=== PATIENT | male | born 1940 | race Caucasian/White ===

== ENCOUNTER → 2016-11-22 | Outpatient (CLI) | payer OTHER ==
[~2016-11-22] MED LIST: ASCO10003 PO; CALC500C3 PO; CIPR-255 PO; FINA5TAB PO; METO1TAB31 PO; NAPR1TAB9 PO; OPTIRAY 320 IV PRN; OXYB5TAB74 PO; OXYC7.5T65 PO; PHEN-775 PO; TAMS0.4C38 PO
--- NOTE | 2016-11-22 13:06 | DIAGNOSTIC IMAGING REPORT ---
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 TECHNIQUE: Following the IV administration of 119 mL of Optiray-320, CT scan of the abdomen and pelvis was performed from the lung bases to the proximal femurs. Images are reviewed in the axial, sagittal, and coronal planes. IV contrast was administered without complication. A dose lowering technique was utilized adhering to the principles of ALARA. CT DOSE: FINDINGS: Lower chest: There are no pleural effusions. There is bilateral subpleural reticulation. Liver: The contrast-enhanced liver is normal in size, contour, and attenuation. There is no intrahepatic biliary ductal dilatation. The hepatic veins and portal veins are patent. Gallbladder: Unremarkable. Spleen: Normal in size and attenuation. Pancreas: Unremarkable. Adrenal glands: Unremarkable. Kidneys: There is a 5 mm upper pole left renal cyst. No solid renal masses are visualized. There is no hydronephrosis. Bowel: There are no transition zones to indicate bowel obstruction. There is colonic diverticulosis. There are no acute peridiverticular inflammatory changes. The appendix appears normal. There is an 8 mm gastric polyp versus enteric contents. Peritoneum: There is no intraperitoneal free air or abdominal ascites. Vasculature: There is a 33 mm infrarenal abdominal aortic aneurysm. Adenopathy: None. Pelvic viscera: The prostate is enlarged. There is a 56 mm right-sided lobulated bladder mass. There is a second 9 mm left-sided polypoid bladder nodule Skeletal structures: No destructive osseous lesions are seen. IMPRESSION: 1. 5.6 cm lobulated bladder mass 2. Prostatomegaly 3. 33 mm infrarenal abdominal aortic aneurysm 4. 8 mm gastric polyp versus enteric contents Electronically signed by: Vitaliy Chaudhry M.D. 11/22/2016 1:05 PM Dictated Date/Time: 11/22/2016 12:54 PM
--- NOTE | 2016-11-22 13:08 | DIAGNOSTIC IMAGING REPORT ---
CHEST CT WITH CONTRAST CT DOSE: 609.10 mGy.cm HISTORY: R31.0 Gross [id number] Bladder massN40.1 BPH with obstructi TECHNIQUE: Multiaxial CT images of the chest were performed following the intravenous administration of contrast. A dose lowering technique was utilized adhering to the principles of ALARA. COMPARISON: None. FINDINGS: Mild biapical pleural-parenchymal scarring. No pleural effusions. No pneumothorax. Mild subpleural reticulation and groundglass densities. There is also mild subpleural honeycombing seen within the right lung. These demonstrate a basilar and peripheral predominance. Therefore, this favors mild fibrotic change. Mild emphysema. A small right anterior pleural plaque. This is best seen on image 129. This measures 2 cm in length. No focal lung consolidations to suggest pneumonia. No suspicious pulmonary nodules. No suspicious lytic or blastic osseous lesions. Old, healed left-sided rib fractures. Normal caliber thoracic aorta with no evidence for dissection. The central pulmonary arteries are patent. The heart is normal in size. Hepatic steatosis. The visualized spleen and adrenal glands are unremarkable. No mediastinal or hilar lymphadenopathy. IMPRESSION: 1. Mild emphysema. 2. Mild pulmonary fibrosis. 3. No evidence for metastatic disease within the chest. Electronically signed by: Victor M Johnston M.D. 11/22/2016 1:07 PM Dictated Date/Time: 11/22/2016 12:51 PM
== END | disposition home or self-care (01) ==
LOC: C.CTS 12:09
PROVIDERS: ATTEND Urology
DX: N32.89 Other specified disorders of bladder (principal); N40.1 Benign prostatic hyperplasia with lower urinary tract symptoms; R31.0 Gross hematuria; I71.4 Abdominal aortic aneurysm, without rupture; R93.3 Abnormal findings on diagnostic imaging of other parts of digestive tract

== ENCOUNTER → 2016-12-19 | Outpatient (CLI) | payer OTHER ==
[~2016-12-19] MED LIST changes: -OPTIRAY 320 IV PRN; -PHEN-775 PO
--- NOTE | 2016-12-19 10:41 | DIAGNOSTIC IMAGING REPORT ---
CYSTOGRAM CLINICAL HISTORY: 76 years-old Male presenting with N32.89 Bladder massC67.9 Bladder [id number] Intraoperative bladder visualization. TECHNIQUE: 10 fluoroscopic spot image(s) obtained as part of an intraoperative procedure. COMPARISON: CT from 11/22/2016. FINDINGS/IMPRESSION: Initial noncontrast frontal and lateral projections of the bladder unremarkable. A Rogers catheter is in place. The bladder was progressively distended with contrast revealing a grossly irregular luminal contour with marked trabeculation. The focal polypoid irregular thickening visible on CT is not as well appreciated on the spot images. Please see surgical report for further details. Fluoroscopy dosage (mGy): Not available. Fluoroscopy time: 1.8 minutes. Number of fluoroscopic spot images: 10. Electronically signed by: Chester Upton M.D. 12/19/2016 10:39 AM Dictated Date/Time: 12/19/2016 10:38 AM
--- NOTE | 2016-12-19 11:43 | DIAGNOSTIC IMAGING REPORT ---
PELVIS NO IV/ORAL CONT (CT) CLINICAL HISTORY: 76 years-old Male presenting with BLADDER CANCER, INTRA OP BLADDER INJURY. TECHNIQUE: Multidetector CT of the pelvis was performed without the use of intravenous contrast. IV contrast: None. A dose lowering technique was used consistent with the principles of ALARA (as low as reasonably achievable). COMPARISON: Cystogram performed earlier the same day and CT from 11/22/2016. CT DOSE (mGy.cm): The estimated cumulative dose is 355.35 mGy.cm. FINDINGS: Oceanographic Meteorologist topogram: Unremarkable. A Rogers catheter is in place. Small amount of residual prior administered contrast via the Rogers catheter noted in the urinary bladder. No intraperitoneal or extraperitoneal spillage of contrast to suggest a bladder leak. Gas within the urinary bladder related to the presence of the catheter. Although the bladder is decompressed, suggestion of a thick wall noted. Mild perivesicular fat stranding. Small perivesicular lymph node noted along the right anterolateral aspect (series 3 image 136). No dilatation of the distal ureters. Calcification within the mildly enlarged prostate evidence of benign prostatic hyperplasia. A TURP defect may be present. Diverticulosis of the sigmoid colon. Normal appendix. No bowel obstruction. No free intraperitoneal fluid or gas. Atherosclerosis. No gross lymphadenopathy in the pelvis. No inguinal hernias. Degenerative changes of the lower lumbar spine. IMPRESSION: No evidence of bladder leak. The bladder is decompressed but thick-walled, better evaluated on prior CT with multifocal areas of masslike thickening, likely now resected. Perivesicular fat stranding could relate to inflammation in the setting of infectious cystitis or prior radiation, postsurgical change, or reactive changes in the setting of neoplasm. Small nonspecific prominent perivesicular lymph node. Electronically signed by: Chester Upton M.D. 12/19/2016 11:42 AM Dictated Date/Time: 12/19/2016 11:37 AM
[2016-12-19 16:06] LABS: BLOOD UREA NITROGEN 22 mg/dl (7-18); BUN/CREATININE RATIO 15.4 (10-20)
== END | disposition home or self-care (01) ==
LOC: C.RAD 09:45
PROVIDERS: ATTEND Urology
DX: C67.9 Malignant neoplasm of bladder, unspecified (principal); N32.89 Other specified disorders of bladder; N99.81 Other intraoperative complications of genitourinary system

== ENCOUNTER → 2017-01-03 | Outpatient (CLI) | payer OTHER ==
[~2017-01-03] MED LIST changes: +METO-478 PO; -METO1TAB31 PO; -NAPR1TAB9 PO; -OXYB5TAB74 PO; -OXYC7.5T65 PO; +PHEN-775 PO
[2017-01-03 12:12] LABS: BASO % 0.2 %; BASO ABS # 0.01 K/uL (0-0.2); COMPLETE YES; HEMATOCRIT 38.5 % (42-52); IG% 0.2 %; LYMPH % 24.6 %; LYMPH ABS # 1.51 K/uL (1.2-3.4); MEAN CELL VOLUME 93.4 fL (80-100); MEAN CORPUSCULAR HEMOGLOBIN 31.1 pg (25-34); MEAN CORPUSCULAR HGB CONC 33.2 g/dl (32-36); MEAN PLATELET VOLUME 9.4 fL (7.4-10.4); MONO % 10.1 %; NEUT % 62.9 %; PLATELET COUNT 127 K/uL (130-400); RED BLOOD COUNT 4.12 M/uL (4.7-6.1); WHITE BLOOD COUNT 6.15 K/uL (4.8-10.8)
[2017-01-03 13:13] LABS: BLOOD UREA NITROGEN 23 mg/dl (7-18); BUN/CREATININE RATIO 16.9 (10-20); CALCIUM 8.7 mg/dl (8.5-10.1); CARBON DIOXIDE 27 mmol/L (21-32); CHLORIDE 109 mmol/L (98-107); CREATININE 1.35 mg/dl (0.60-1.40); GLUCOSE 84 mg/dl (70-99); POTASSIUM 4.9 mmol/L (3.5-5.1); SODIUM 141 mmol/L (136-145)
[2017-01-03 13:38] LABS: URINE APPEARANCE CLOUDY (CLEAR); URINE BILIRUBIN NEG (NEG); URINE COLOR YELLOW; URINE EPITHELIAL CELL AUTO 0-5 /lpf (0-5); URINE NITRITE NEG (NEG); UROBILINOGEN NEG (NEG)
[2017-01-03 13:43] LABS: MANUAL MICROSCOPIC REQUIRED? NO; REVIEW REQ? YES
== END | disposition home or self-care (01) ==
LOC: C.LAB 11:13
PROVIDERS: ATTEND Urology
DX: R31.0 Gross hematuria (principal); N32.89 Other specified disorders of bladder; C67.9 Malignant neoplasm of bladder, unspecified

== ENCOUNTER → 2017-01-18 | Day surgery (SDC) | payer OTHER ==
[2016-12-26 09:06] VITALS: BMI 24.0
[~2017-01-18] VITALS: Ht 177.8 cm; Wt 75.2 kg
[~2017-01-18] MED LIST changes: +ATROPINE SULFATE 0.1 MG/ML 5ML SYR IV PRN; +BELLADONNA/OPIUM SUPP 60 MG SUPP PR ONE; +CIPROFLOXACIN / D5W 400 MG IV SCH; +EpHEDrine SULFATE INJ 50 MG/ML AMP IV PRN; +EpHEDrine SULFATE INJ 50 MG/ML AMP ONE; +FENTANYL CITRATE INJ 50 MCG/1 ML 2 ML VIAL ONE; +GENTAMICIN INJ 80 MG in DEXTROSE 5% 100ML 100 ML IV SCH; +LACTATED RINGER'S 1000ML 1,000 ML IV SCH; +MIDAZOLAM HCL 1 MG/ML 2ML VIAL ONE; +ONDANSETRON INJ 2 MG/ML 2 ML VIAL IV PRN; +OXYCODONE/ACETAMINOPHEN 5-325 TAB PO PRN; +PHENAZOPYRIDINE HCL 200 MG TAB PO PRN
[2017-01-18 12:06] VITALS: BP 182/88; PULSE 64; TEMP 36.7; O2SAT 98; Ht 177.8 cm; Wt 75.2 kg
--- NOTE | 2017-01-18 13:02 | History & Physical Bridge Note ---
H&P Re-Evaluation Bridge Note: I have examined the patient, reviewed the History & Physical and in the interval since the performance of the History & Physical I have noted the following changes of clinical significance: No changes noted
--- NOTE | 2017-01-18 14:56 | Discharge Instructions ---
Discharge Instructions Date of Service Jan 18, 2017. Admission Reason for Admission: Bladder Cancer Discharge Discharge Diagnosis / Problem: Bladder cancer s/p TURBT Discharge Goals Goal(s): Decrease discomfort, Improve disease control Activity Recommendations Activity Limitations: as noted below Lifting Limitations: no more than 25 pounds, gradually increase as tolerated Exercise/Sports Limitations: rest today, gradually increase as tolerated May Resume Sexual Activity: after follow-up appointment Shower/Bathe: tomorrow (no tub bath with munoz in place) Driving or Machine Use: resume 3 days after discharge Catheter to gravity drainage as instructed . Instructions / Follow-Up Instructions / Follow-Up In [place] office Sunday at 10:15 AM for catheter removal and pathology discussion. Discharge Diet Recommended Diet: Regular Diet (good fluid intake) Procedures Procedures Performed: Cystoscopy; Transurethral Resection Bladder Tumor; Meatal Dilation Pending Studies Studies pending at discharge: yes List of pending studies: Pathology report Medical Emergencies . Who to Call and When: Medical Emergencies: If at any time you feel your situation is an emergency, please call 911 immediately. . Non-Emergent Contact Non-Emergency issues call your: Urologist Call Non-Emergent contact if: you have a fever, temperature is above 101, your pain is not controlled, your pain is worsening, your pain is unusual for you, your pain is concerning you, you have any medication questions . . "Provider Documentation" section prepared by Ilan Acevedo. . VTE Core Measure Inpt VTE Proph given/why not?: SCD's
--- NOTE | 2017-01-18 14:58 | [facility] Post Operative Brief Note ---
Immediate Operative Summary Operative Date Jan 18, 2017. Pre-Operative Diagnosis Bladder Tumor Post-Operative Diagnosis Bladder Tumor, >5 cm; Meatal Stenosis Procedure(s) Performed Cystoscopy; Transurethral Resection Bladder Tumor > 5 cm; Meatal Dilation Surgeon Dr. Shaka Acevedo Slot Ambassador Surgeon(s) None Estimated Blood Loss 30 mL Findings Significant residual tumor burden on right and anterior bladder wall resected with no clear residual mass, no bladder perforation. Specimens A: Right Bladder Tumor B: Deep Bladder Tumor C: Deep Cup Biopsy Drains 24 fr 15 cc H2O Anesthesia GALMA Complication(s) None Disposition Recovery Room / PACU
--- NOTE | 2017-01-18 15:03 | [facility] Operative Report ---
Operative Report Operative Date Jan 18, 2017. Pre-Operative Diagnosis Bladder Tumor Post-Operative Diagnosis Bladder Tumor > 5 cm; Meatal Stenosis Procedure(s) Performed Cystoscopy; Transurethral Resection Bladder Tumor > 5 cm; Meatal Dilation Surgeon Dr. Shaka Acevedo Optical Engineering Manager Surgeon(s) None Estimated Blood Loss 30 mL Findings Significant residual tumor burden on right and anterior bladder wall resected with no clear residual mass, no bladder perforation. Specimens A: Right Bladder Tumor B: Deep Bladder Tumor C: Deep Cup Biopsy Drains 24 fr 15 cc H2O Anesthesia GALMA Complication(s) None Disposition Recovery Room / PACU Indications 76-year-old male who is status post partial TURBT proximally 6 weeks ago here for completion resection seen the lack of muscle invasion on his previous specimen. Please see H&P for further details. Consent is reviewed with the patient and family preoperatively today who vocalize good understanding of the treatment plan. Intravenous ciprofloxacin was provided for antibiotic coverage and SCDs used for DVT prophylaxis. Description of Procedure Patient was properly identified and brought into the operative suite after infusion of appropriate consent of the chart. General anesthesia with laryngeal mask was initiated and patient was prepped and draped in standard fashion for this procedure. Full timeout procedure was followed. Attempts at passing the 27 [place] resectoscope met with resistance at the level of the meatus which was then dilated to a 30 [place] caliber. The scope was then able to be passed easily into the bladder. Prostate was noted to be open after prior TURP, well-healed. No urethral strictures or lesions were appreciated. Bladder was entered and surveyed in its entirety. Left side of the bladder was noted to be completely clean as was the posterior bladder and most of the anterior bladder. Residual tumor and edema was present around the right bladder wall. Ureteral orifices were noted to be uninvolved by the disease process were thereby able to be avoided throughout the case. Using a bipolar loop the majority of the tumor was resected on the right side. The initial tumor mass was labeled right bladder mass. When the deeper tumor was resected the specimens were sent separately for analysis as deep bladder tumor. At the base of the tumor a single cold cup biopsy was taken at the center of the tumor mass and sent as a separate deep cold cup specimen for analysis. Loop and bipolar button were used for additional hemostasis and fulguration of any residual mass or lesions. This was continued until no residual abnormal papillary masses or lesions were appreciated within the bladder. No evidence of bladder perforation was present at the end of the case. Patient tolerated the procedure well with no significant difficulties. Seen the volume of resection mitomycin C was avoided today in the operating room. Excellent hemostasis was appreciated and the bladder was partially distended after ensuring that it was free of any tumor fragments or tissue. 24 [place]an Rogers catheter was placed with return of clear pink urine with 15 mL of sterile water in the balloon. Catheter was placed to gravity drainage belladonna and opium suppository was provided for additional postoperative analgesia. Anesthesia was reversed and patient was transferred recovery room in stable condition. Follow-up care: patient will be discharged home with a Rogers catheter in place. Prescription for ciprofloxacin and peridium were provided for postoperative analgesia. Per the family patient has pain medication at home. Outpatient appointment for trial of void and pathology discussion is confirmed. Patient is instructed to contact us should he note any fevers, chills, nausea, vomiting , catheter difficulties or other issues in the postoperative period. I attest to the content of the Intraoperative Record and any orders documented therein. Any exceptions are noted below.
--- NOTE | 2017-01-18 15:42 | Anesthesiology Progress Note ---
Anesthesia Post Op Note Date & Time Jan 18, 2017 at 15:42 Vital Signs Pain Intensity: 0 Vital Signs Past 12 Hours Date Time Temp Pulse Resp B/P (MAP) Pulse Ox O2 Delivery O2 Flow Rate FiO2 01/18/17 15:01 67 15 166/95 99 01/18/17 15:01 67 15 166/95 99 01/18/17 15:01 66 15 01/18/17 15:01 66 15 01/18/17 14:56 65 18 172/87 100 01/18/17 14:56 66 18 01/18/17 14:56 65 18 172/87 100 01/18/17 14:56 66 18 01/18/17 14:51 65 16 183/94 100 01/18/17 14:51 64 16 01/18/17 14:51 65 16 183/94 100 01/18/17 14:51 64 16 01/18/17 14:48 178/87 01/18/17 14:48 178/87 01/18/17 14:46 36.2 65 14 180/96 (129) 100 Oxymask 10 01/18/17 14:46 65 14 01/18/17 14:46 65 14 180/96 100 01/18/17 14:46 65 14 180/96 100 01/18/17 14:46 65 14 01/18/17 12:06 36.7 64 18 182/88 (119) 98 Room Air Notes Mental Status: alert / awake / arousable, participated in evaluation Pt Amnestic to Procedure: Yes Nausea / Vomiting: adequately controlled Pain: adequately controlled Airway Patency, RR, SpO2: stable & adequate BP & HR: stable & adequate Hydration State: stable & adequate Anesthetic Complications: no major complications apparent
[2017-01-18] MEDS: FENTANYL CITRATE INJ 50 MCG/1 ML 2 ML VIAL IV PRN ×4 (16:45→17:00)
--- NOTE | 2017-01-18 16:50 | Progress Note ---
Progress Note Date of Service Jan 18, 2017. Progress Note Called from recovery room due to a lack of output from the Rogers catheter and an inability to irrigate. Per recovery room nurse some clots had been extracted within the catheter stopped passing urine. Catheter is irrigated with a catheter tip syringe and sterile saline with irregular return of pink urine. Catheter exchanged for a 24 Slovak three-way hematuria catheter with infusion port plugged. Return of a moderate amount of red urine with some small clots. Catheter is irrigated with a Alvaro syringe with return of the small volume of clot and rapid clearing of the patient's urine with no pink tinge. After approximately 800 mL of irrigation catheter returns with clear irrigant and no further clot. Will still plan on discharge home as long as the urine remains clear. Will instruct on home irrigation if necessary.
[2017-01-18 17:24] VITALS: BP 165/78; PULSE 73; TEMP 36.4; O2SAT 97
[2017-01-18 17:55] VITALS: BP 156/94; PULSE 74; O2SAT 97
[2017-01-18 18:25] VITALS: BP 169/81; PULSE 80; TEMP 36.2; O2SAT 93
== END | disposition home or self-care (01) ==
LOC: C.ACU 11:19
PROVIDERS: ATTEND Urology
DX: C67.9 Malignant neoplasm of bladder, unspecified (principal); R31.0 Gross hematuria; N99.81 Other intraoperative complications of genitourinary system; N32.89 Other specified disorders of bladder; E78.5 Hyperlipidemia, unspecified; J44.9 Chronic obstructive pulmonary disease, unspecified; M19.90 Unspecified osteoarthritis, unspecified site; G47.33 Obstructive sleep apnea (adult) (pediatric); F17.200 Nicotine dependence, unspecified, uncomplicated; Z90.89 Acquired absence of other organs; Z98.890 Other specified postprocedural states; Z68.24 Body mass index [BMI] 24.0-24.9, adult

== ENCOUNTER → 2017-03-26 | Outpatient (CLI) | payer OTHER ==
[~2017-03-26] MED LIST changes: -ATROPINE SULFATE 0.1 MG/ML 5ML SYR IV PRN; -BELLADONNA/OPIUM SUPP 60 MG SUPP PR ONE; -CIPROFLOXACIN / D5W 400 MG IV SCH; -EpHEDrine SULFATE INJ 50 MG/ML AMP IV PRN; -EpHEDrine SULFATE INJ 50 MG/ML AMP ONE; -FENTANYL CITRATE INJ 50 MCG/1 ML 2 ML VIAL ONE; -GENTAMICIN INJ 80 MG in DEXTROSE 5% 100ML 100 ML IV SCH; -LACTATED RINGER'S 1000ML 1,000 ML IV SCH; -MIDAZOLAM HCL 1 MG/ML 2ML VIAL ONE; -ONDANSETRON INJ 2 MG/ML 2 ML VIAL IV PRN; -OXYCODONE/ACETAMINOPHEN 5-325 TAB PO PRN; -PHEN-775 PO; -PHENAZOPYRIDINE HCL 200 MG TAB PO PRN
== END | disposition home or self-care (01) ==
LOC: C.LABSPEC 16:58
PROVIDERS: ATTEND Urology
DX: R31.0 Gross hematuria (principal); C67.9 Malignant neoplasm of bladder, unspecified

== ENCOUNTER → 2017-04-23 | Outpatient (CLI) | payer OTHER | END | disposition home or self-care (01) | LOC: C.LABSPEC 17:01 | PROVIDERS: ATTEND Nurse Practitioner Adult Health | DX: R31.0 Gross hematuria (principal); R39.0 Extravasation of urine ==

== ENCOUNTER → 2017-05-10 | Outpatient (CLI) | payer OTHER ==
[2017-05-07 15:37] VITALS: Ht 177.8 cm; Wt 76.7 kg
[~2017-05-10] VITALS: Ht 177.8 cm; Wt 76.7 kg
[~2017-05-10] MED LIST changes: +ATOR-22 PO; -CALC500C3 PO; -CIPR-255 PO; +CIPR1TAB10 PO; +DOCU-94 PO; +FERR1TAB23 PO; +HYDR-5688 PO; +MULT-506 PO; +ONDA4TAB46 PO; +PROC10TA PO; +TRAM-10 PO
--- NOTE | 2017-05-10 13:25 | PAT Medication Instructions ---
Service Date May 10, 2017. Current Home Medication List Ascorbic Acid (Vitamin C), 1,000 MG PO QAM Finasteride (Proscar), 5 MG PO QAM Metoprolol Succinate (Toprol Xl), 12.5 MG PO QAM Multivitamin (Multivitamin), 1 TAB PO NOON Tamsulosin Hcl (Flomax), 0.4 MG PO QPM Medication Instructions For Your Scheduled Surgery - Hold the following medications the morning of surgery: Ascorbic Acid (Vitamin C), 1,000 MG PO QAM Finasteride (Proscar), 5 MG PO QAM Multivitamin (Multivitamin), 1 TAB PO NOON - Take the following medications the morning of surgery with a sip of water: Metoprolol Succinate (Toprol Xl), 12.5 MG PO QAM - Take the following medications as scheduled the night before surgery: Tamsulosin Hcl (Flomax), 0.4 MG PO QPM If you have any questions please call us at [phone] or [phone] or [phone]
[2017-05-10 14:14] LABS: CALCIUM 8.5 mg/dl (8.5-10.1); CREATININE 1.85 mg/dl (0.60-1.40); POTASSIUM 4.4 mmol/L (3.5-5.1)
[2017-05-10 14:24] LABS: EOS % 0.7 %; EOS ABS # 0.03 K/uL (0-0.5); HEMATOCRIT 34.7 % (42-52); HEMOGLOBIN 11.6 g/dL (14.0-18.0); IG# 0.01 K/uL (0.00-0.02); LYMPH % 21.4 %; LYMPH ABS # 0.91 K/uL (1.2-3.4); MEAN CELL VOLUME 89.4 fL (80-100); MEAN CORPUSCULAR HEMOGLOBIN 29.9 pg (25-34); MEAN CORPUSCULAR HGB CONC 33.4 g/dl (32-36); MEAN PLATELET VOLUME 9.2 fL (7.4-10.4); MONO % 17.2 %; MONO ABS # 0.73 K/uL (0.11-0.59); NEUT % 60.5 %; NEUT ABS # 2.57 K/uL (1.4-6.5); PLATELET COUNT 85 K/uL (130-400); RED CELL DISTRIBUTION WIDTH CV 14.7 % (11.5-14.5); RED CELL DISTRIBUTION WIDTH SD 48.6 fL (36.4-46.3); WHITE BLOOD COUNT 4.25 K/uL (4.8-10.8)
== END | disposition home or self-care (01) ==
LOC: C.LAB 08:00 → EDSTATUS 05-29 07:30
PROVIDERS: ATTEND Urology
DX: Z01.810 Encounter for preprocedural cardiovascular examination (principal); Z01.818 Encounter for other preprocedural examination

== ENCOUNTER → 2017-05-10 | Outpatient (CLI) | payer OTHER ==
[~2017-05-10] MED LIST changes: -ATOR-22 PO; -CIPR1TAB10 PO; -DOCU-94 PO; -FERR1TAB23 PO; -HYDR-5688 PO; -ONDA4TAB46 PO; +OPTIRAY 320 IV PRN; -PROC10TA PO; -TRAM-10 PO
--- NOTE | 2017-05-10 14:52 | DIAGNOSTIC IMAGING REPORT ---
CT ABD/PELVIS IV CONTRAST ONLY CLINICAL HISTORY: R31.0 Gross hematuria COMPARISON STUDY: 12/19/2016 TECHNIQUE: Following the IV administration of 93 mL of Optiray-320, CT scan of the abdomen and pelvis was performed from the lung bases to the proximal femurs. Images are reviewed in the axial, sagittal, and coronal planes. IV contrast was administered without complication. A dose lowering technique was utilized adhering to the principles of ALARA. CT DOSE: 1096.92 mGycm FINDINGS: Lower chest: There is suspected underlying interstitial lung disease with dependent subpleural reticulation. Liver: No focal hepatic masses are visualized. Gallbladder: Unremarkable. Spleen: Normal in size and attenuation. Pancreas: Unremarkable. Adrenal glands: Unremarkable. Kidneys: There is right-sided hydronephrosis and hydroureter down to the level of the bladder. There are 2 left renal cysts, each of which measures approximately 8 mm. No collecting system filling defects are visualized. Bowel: There are no transition zones indicate bowel obstruction. There is colonic diverticulosis. There are no acute peridiverticular inflammatory changes. There is no evidence of acute appendicitis. Peritoneum: There is no intraperitoneal free air or abdominal ascites. Vasculature: There is a 34 mm infrarenal abdominal aortic aneurysm Adenopathy: None. Pelvic viscera: There is a right posterior lateral bladder wall mass measuring 6 cm in maximal diameter. Extension into the perivesical soft tissues most be considered. Additional nodules are present within the left lateral bladder wall. The findings are viewed as suspicious for a bladder carcinoma. Skeletal structures: No destructive osseous lesions are seen. IMPRESSION: 1. Bladder mass, consistent with the patient's known bladder carcinoma 2. The bladder mass results in right-sided hydronephrosis and hydroureter 3. No solid renal masses identified 4. 34 mm infrarenal abdominal aortic aneurysm 5. Suspected interstitial lung disease with subpleural reticulation Electronically signed by: Vitaliy Chaudhry M.D. 05/10/2017 2:51 PM Dictated Date/Time: 05/10/2017 2:44 PM
== END | disposition home or self-care (01) ==
LOC: C.CTS 12:33
PROVIDERS: ATTEND Urology
DX: R31.0 Gross hematuria (principal)

== ENCOUNTER 2017-05-18 13:39 | Inpatient (IN) | payer OTHER ==
[~2017-05-18] VITALS: Ht 180.3 cm; Wt 76.9 kg
[~2017-05-18 13:39] MED LIST changes: -OPTIRAY 320 IV PRN
--- NOTE | 2017-05-18 14:15 | EMERGENCY ROOM VISIT NOTE ---
History Report prepared by Briana: Josh Way Under the Supervision of: Dr. Prosper Montalvo M.D. First contact with patient: 14:04 Chief Complaint: REFERRED BY DOCTOR Stated Complaint: BLOCKAGE IN URETHRA- POSSIBLE BLOOD CLOT-DR GILMORE History of Present Illness The patient is a 77 year old male with bladder cancer who presents to the Emergency Room with complaints of a worsening weakness over the past week. The patient states that he was diagnosed with bladder cancer in October, and follows- up with Dr. Gilmore of urology and Dr. Painting of hematology. He notes that he went to see Dr. Gilmore 8 days ago, and had another procedure scheduled for his bladder cancer. The patient had an abdominal CT scan done recently, and there were abnormalities in the CT scan, which Dr. Painting 2 days ago said showed something extending from the kidney to the bladder with a possible blockage. Dr. Painting also noted that the patient's creatinine and BUN were "bad", per the patient's . The patient's hemoglobin was 11.3 and creatinine was 3.34. Dr. Painting said that the patient was more pale and slightly anemic as well. The patient states that his urine has been full of blood and dark tissue for about a year now. Per the patient's , the patient has been weak ever since the cancer diagnosis, but has been weaker over the past week. The patient is not on any blood thinners. The patient denies any fevers, cough, congestion, or flank pain. Source of History: patient, spouse/significant other Onset: Over past few days Position: other (global) Quality: other (weakness) Timing: other (persistent) Associated Symptoms: + urinary symptoms (but unchanged since diagnosis), + weakness, No fevers, No cough (or congestion) Note: Associated symptoms: Patient more pale. Denies worsened flank pain. Review of Systems See HPI for pertinent positives & negatives. A total of 10 systems reviewed and were otherwise negative. Past Medical & Surgical Medical Problems: (1) Bladder cancer (2) Ureteral obstruction Family History No pertinent family history Social History Smoking Status: Former Smoker Marital Status: Housing Status: lives with family Occupation Status: retired Current/Historical Medications Scheduled Ascorbic Acid (Vitamin C), 1,000 MG PO QAM Ferrous Sulfate (Iron), 1 TAB PO LUNCH Finasteride (Proscar), 5 MG PO QAM Metoprolol Succinate (Toprol Xl), 12.5 MG PO QAM Multivitamin (Multivitamin), 1 TAB PO NOON Tamsulosin Hcl (Flomax), 0.4 MG PO QPM Allergies Coded Allergies: No Known Allergies (Unverified , 05/10/17) Physical Exam Vital Signs Date Time Temp Pulse Resp B/P (MAP) Pulse Ox O2 Delivery O2 Flow Rate FiO2 05/18/17 15:45 78 20 157/100 96 05/18/17 14:33 82 05/18/17 14:30 97 Room Air 05/18/17 13:47 36.8 86 17 150/83 99 Room Air Physical Exam GENERAL: Patient is in no acute distress. HEENT: No acute trauma, normocephalic atraumatic, mucous membranes moist, no nasal congestion, no scleral icterus. NECK: No stridor, no adenopathy, no meningismus, trachea is midline. LUNGS: Clear to auscultation bilaterally, no wheeze, no rhonchi, breath sounds equal. HEART: Without murmurs gallops or rubs, regular rate and rhythm. ABDOMEN: Soft, nontender, bowel sounds positive, no hernias, no peritonitis. EXTREMITIES: No cyanosis or edema, full range of motion of all the joints without pain or difficulty, no signs for acute trauma. NEUROLOGIC: Oriented x 3, no acute motor or sensory deficits, no focal weakness. SKIN: Pale. No rash, no jaundice, no diaphoresis. Medical Decision & Procedures ER Provider Diagnostic Interpretation: X-ray results as stated below per interpretation by me and the radiologist: SINGLE VIEW CHEST CLINICAL HISTORY: Weakness. Change in mental status. FINDINGS: An AP, portable, upright chest radiograph is compared to study dated 11/23/2016. The cardiomediastinal silhouette is unremarkable. Chronic interstitial thickening is similar to previous. No airspace consolidation or pleural effusion is identified. No pneumothorax is seen. The skeletal structures are osteopenic. The bony thorax is grossly intact. IMPRESSION: 1. No acute cardiopulmonary abnormality. 2. Chronic interstitial thickening is similar to previous. Electronically signed by: Prosper Bob M.D. 05/18/2017 2:50 PM Dictated Date/Time: 05/18/2017 2:49 PM Laboratory Results 05/18/17 14:30 Red Blood Count 3.51, Mean Corpuscular Volume 88.6, Mean Corpuscular Hemoglobin 29.9, Mean Corpuscular Hemoglobin Concent 33.8, Mean Platelet Volume 9.0, Neutrophils (%) (Auto) 65.8, Lymphocytes (%) (Auto) 22.1, Monocytes (%) (Auto) 10.4, Eosinophils (%) (Auto) 1.4, Basophils (%) (Auto) 0.3, Neutrophils # (Auto ) 2.35, Lymphocytes # (Auto) 0.79, Monocytes # (Auto) 0.37, Eosinophils # (Auto ) 0.05, Basophils # (Auto) 0.01 05/18/17 14:30 Test 05/18/17 14:30 05/18/17 15:40 White Blood Count 3.57 K/uL (4.8-10.8) Red Blood Count 3.51 M/uL (4.7-6.1) Hemoglobin 10.5 g/dL (14.0-18.0) Hematocrit 31.1 % (42-52) Mean Corpuscular Volume 88.6 fL (80-100) Mean Corpuscular Hemoglobin 29.9 pg (25-34) Mean Corpuscular Hemoglobin Concent 33.8 g/dl (32-36) Platelet Count 85 K/uL (130-400) Mean Platelet Volume 9.0 fL (7.4-10.4) Neutrophils (%) (Auto) 65.8 % Lymphocytes (%) (Auto) 22.1 % Monocytes (%) (Auto) 10.4 % Eosinophils (%) (Auto) 1.4 % Basophils (%) (Auto) 0.3 % Neutrophils # (Auto) 2.35 K/uL (1.4-6.5) Lymphocytes # (Auto) 0.79 K/uL (1.2-3.4) Monocytes # (Auto) 0.37 K/uL (0.11-0.59) Eosinophils # (Auto) 0.05 K/uL (0-0.5) Basophils # (Auto) 0.01 K/uL (0-0.2) RDW Standard Deviation 48.3 fL (36.4-46.3) RDW Coefficient of Variation 14.9 % (11.5-14.5) Immature Granulocyte % (Auto) 0.0 % Immature Granulocyte # (Auto) 0.00 K/uL (0.00-0.02) Prothrombin Time 10.2 SECONDS (9.0-12.0) Prothromb Time International Ratio 1.0 (0.9-1.1) Activated Partial Thromboplast Time 25.4 SECONDS (21.0-31.0) Partial Thromboplastin Ratio 1.0 Anion Gap 8.0 mmol/L (3-11) Est Creatinine Clear Calc Drug Dose 19.3 ml/min Estimated GFR () 19.6 Estimated GFR (Non- 16.9 BUN/Creatinine Ratio 12.5 (10-20) Calcium Level 8.5 mg/dl (8.5-10.1) Magnesium Level 2.3 mg/dl (1.8-2.4) Total Bilirubin 0.6 mg/dl (0.2-1) Aspartate Amino Transf (AST/SGOT) 42 U/L (15-37) Alanine Aminotransferase (ALT/SGPT) 56 U/L (12-78) Alkaline Phosphatase 209 U/L (45-117) Troponin I < 0.015 ng/ml (0-0.045) Total Protein 7.0 gm/dl (6.4-8.2) Albumin 3.1 gm/dl (3.4-5.0) Globulin 3.9 gm/dl (2.5-4.0) Albumin/Globulin Ratio 0.8 (0.9-2) Thyroid Stimulating Hormone (TSH) 2.440 uIu/ml (0.300-4.500) Urine Color RED Urine Appearance TURBID (CLEAR) Urine pH 6.5 (4.5-7.5) Urine Specific [place] 1.015 (1.000-1.030) Urine Protein 2+ (NEG) Urine Glucose (UA) NEG (NEG) Urine Ketones NEG (NEG) Urine Occult Blood 3+ (NEG) Urine Nitrite NEG (NEG) Urine Bilirubin NEG (NEG) Urine Urobilinogen NEG (NEG) Urine Leukocyte Esterase NEG (NEG) Urine RBC >30 /hpf (0-4) Urine WBC 10-30 /hpf (0-5) Urine Epithelial Cells 5-10 /lpf (0-5) Urine Bacteria 1+ (NEG) Laboratory results reviewed by me. Medications Administered Medications (Trade) Dose Ordered Sig/Sunny Route Start Time Stop Time Status Last Admin Dose Admin Sodium Chloride 1,000 ml @ 999 mls/hr Q1H1M STAT IV 05/18/17 14:20 05/18/17 15:20 DC 05/18/17 14:30 999 MLS/HR ECG Per My Interpretation Indication: weakness Rate (beats per minute): 81 Rhythm: sinus rhythm Findings: PVC, other (no ST elevation) ED Course 1404: The patient was evaluated in room B4B. A complete history and physical exam was performed. 1420: Ordered NSS 1000 ml @ 999 mls/hr IV. I discussed the patient with Dr. Dakota MENG urology - he recommends hospitalization and he may do a procedure tomorrow. 1520: Upon reexamination the patient is resting. I discussed results and treatment plan with the patient and family. They verbalize agreement and understanding. The patient will be evaluated for further management. 1527: Dr. Kristi MENG fiscal services manager - was notified about the patient. He will evaluate the patient for further treatment. Medical Decision Differential diagnosis includes but is not limited to renal failure, electrolyte imbalance, UTI, hydronephrosis, urinary obstruction, anemia. Patient is anemic with a hemoglobin around 10, white count and platelet count also slightly low. Creatinine is quite high at over 3. Urinalysis shows blood, possibly infection, urine culture is pending. There was no coagulopathy. There were a few liver enzyme elevations.. The patient appears to be in a euthyroid state. EKG shows a sinus rhythm with PVCs, no acute ischemia. Cardiac enzyme testing 1 is not consistent with acute cardiac injury. Patient presents with weakness. He has a high creatinine which is a new finding for him. He is somewhat anemic with a hemoglobin of around 10. Abdominal CT scan from the other day does show right-sided hydronephrosis, likely secondary to his bladder CA. I discussed the case with urology. A hospital stay was recommended. Patient will likely require a urologic procedure to undo the ureteral obstruction. I did speak with case management. The on-call hospitalist was consulted. Patient did receive 1 L of IV saline, he is currently resting comfortably. Medication Reconcilliation Current Medication List: was personally reviewed by me Blood Pressure Screening Patient's blood pressure: Elevated blood pressure Referred to hospitalist. Consults Time Called: 1410 Consulting Physician: Dr. Dakota MENG urology Returned Call: 1420 I discussed the patient with Dr. Dakota MENG urology - he recommends hospitalization and he may do a procedure tomorrow. Additional Consults: Time Called: 1524 Consulted Physician: Dr. Kristi MENG fiscal services manager Returned Call: 1527 Additional Comments: Dr. Kristi MENG fiscal services manager - was notified about the patient. He will evaluate the patient for further treatment. Impression Primary Impression: Acute renal failure Additional Impressions: Hydronephrosis Bladder cancer Scribe Attestation The scribe's documentation has been prepared under my direction and personally reviewed by me in its entirety. I confirm that the note above accurately reflects all work, treatment, procedures, and medical decision making performed by me. Departure Information Dispostion Being Evaluated By Hospitalist Referrals Salvador Liu D.O. (PCP) Patient Instructions My [facility] Health Problem Qualifiers
[2017-05-18] MEDS ORDERED: SODIUM CHLORIDE 0.9% 1000ML 1,000 ML IV STA (14:20)
[2017-05-18 14:49] LABS: HEMATOCRIT 31.1 % (42-52); HEMOGLOBIN 10.5 g/dL (14.0-18.0); MEAN CELL VOLUME 88.6 fL (80-100); MEAN CORPUSCULAR HEMOGLOBIN 29.9 pg (25-34); MEAN CORPUSCULAR HGB CONC 33.8 g/dl (32-36); RED CELL DISTRIBUTION WIDTH CV 14.9 % (11.5-14.5); RED CELL DISTRIBUTION WIDTH SD 48.3 fL (36.4-46.3); WHITE BLOOD COUNT 3.57 K/uL (4.8-10.8)
--- NOTE | 2017-05-18 14:51 | DIAGNOSTIC IMAGING REPORT ---
SINGLE VIEW CHEST CLINICAL HISTORY: Weakness. Change in mental status. FINDINGS: An AP, portable, upright chest radiograph is compared to study dated 11/23/2016. The cardiomediastinal silhouette is unremarkable. Chronic interstitial thickening is similar to previous. No airspace consolidation or pleural effusion is identified. No pneumothorax is seen. The skeletal structures are osteopenic. The bony thorax is grossly intact. IMPRESSION: 1. No acute cardiopulmonary abnormality. 2. Chronic interstitial thickening is similar to previous. Electronically signed by: Prosper Bob M.D. 05/18/2017 2:50 PM Dictated Date/Time: 05/18/2017 2:49 PM
[2017-05-18 14:56] LABS: BASO % 0.3 %; BASO ABS # 0.01 K/uL (0-0.2); EOS % 1.4 %; EOS ABS # 0.05 K/uL (0-0.5); LYMPH % 22.1 %; LYMPH ABS # 0.79 K/uL (1.2-3.4); MONO % 10.4 %; MONO ABS # 0.37 K/uL (0.11-0.59); NEUT % 65.8 %; NEUT ABS # 2.35 K/uL (1.4-6.5); PLATELET COUNT 85 K/uL (130-400)
[2017-05-18 14:57] LABS: PTT PATIENT 25.4 SECONDS (21.0-31.0)
[2017-05-18 15:10] LABS: ALBUMIN 3.1 gm/dl (3.4-5.0); ALKALINE PHOSPHATASE 209 U/L (45-117); ALT/SGPT 56 U/L (12-78); AST/SGOT 42 U/L (15-37); BLOOD UREA NITROGEN 41 mg/dl (7-18); CALCIUM 8.5 mg/dl (8.5-10.1); CARBON DIOXIDE 25 mmol/L (21-32); CREATININE 3.31 mg/dl (0.60-1.40); GLUCOSE 154 mg/dl (70-99); POTASSIUM 4.7 mmol/L (3.5-5.1); SODIUM 136 mmol/L (136-145)
[2017-05-18] MEDS ORDERED: FERR1TAB23 PO (15:49)
[2017-05-18] MEDS ORDERED: ONDANSETRON INJ 2 MG/ML 2 ML VIAL IV PRN (16:00)
[2017-05-18] MEDS ORDERED: POLYETHYLENE (MIRALAX) 17 GM PACK PO PRN (16:00)
[2017-05-18] MEDS ORDERED: MAGNESIUM HYDROXIDE SUSP 30 ML UDC PO PRN (16:00)
[2017-05-18] MEDS ORDERED: ALUMINUM/MAGNESIUM/SIMETH (MAALOX MAX) 30 ML UDC PO PRN (16:00)
[2017-05-18] MEDS ORDERED: MoRPHine SULFATE 2 MG/ML CARP IV PRN (16:00)
[2017-05-18] MEDS ORDERED: ACETAMINOPHEN 325 MG TAB PO PRN (16:00)
[2017-05-18 17:00] VITALS: Ht 180.3 cm; Wt 76.9 kg
--- NOTE | 2017-05-18 17:03 | History and Physical ---
History & Physical Date & Time of Service: May 18, 2017 at 16:23 Chief Complaint: Blockage In Urethra- Possible Blood Clot-Dr Acevedo Primary Care Physician: Salvador Liu D.O. History of Present Illness Source: patient, hospital records 77 y/o M Hx HTN, bladder CA, hematuria. The pt was referred to the hospital due to worsening renal function and R hydronephrosis owing to compression from his bladder mass. He has chronic hematuria which he states has increased in severity as he is passing clots. He denies any SOB, CP, lightheadedness or fevers. Initial labs are notable for JAVIER in addition to pancytopenia which is appears relatively stable aside form a slightly lower Hb. Past Medical/Surgical History 1) HTN 2) Bladder CA - received immunotherapy in April - suffered an adverse reaction with a rash and flu-like illness 3) Per imaging, he likely has COPD but does not currently require treatment 4) Anemia 5) Recent labs reveal mild thrombocytopenia 6) Renal function was recently normal Family History No pertinent family history Noncontributory to current admission Social History Quit smoking in 2017 - 50 + pack year Hx - does not drink Smoking Status: Former Smoker Marital Status: Occupational Status: retired Allergies Coded Allergies: No Known Allergies (Unverified , 05/10/17) Home Medications Scheduled Ascorbic Acid (Vitamin C), 1,000 MG PO QAM Ferrous Sulfate (Iron), 1 TAB PO LUNCH Finasteride (Proscar), 5 MG PO QAM Metoprolol Succinate (Toprol Xl), 12.5 MG PO QAM Multivitamin (Multivitamin), 1 TAB PO NOON Tamsulosin Hcl (Flomax), 0.4 MG PO QPM Review of Systems Constitutional: + weakness, + fatigue, No fever, No chills, No sweats Eyes: No worsening of vision ENT: No hearing loss, No unusual epistaxis, No nasal symptoms Respiratory: No cough, No sputum, No wheezing Cardiovascular: No chest pain, No orthopnea, No PND Abdomen: No pain, No nausea, No vomiting Musculoskeletal: No joint pain Genitourinary - Male: + hematuria, + dysuria (Dysuria due to clots) Neurologic: + weakness, No memory loss, No paralysis Psychiatric: No depression symptoms Endocrine: + fatigue Hematologic / Lymphatic: + abnormal bleeding/bruising Integumentary: No rash Allergic / Immunologic: No environmental allergies Physical Exam Vital Signs Date Time Temp Pulse Resp B/P (MAP) Pulse Ox O2 Delivery O2 Flow Rate FiO2 05/18/17 15:45 78 20 157/100 96 05/18/17 14:33 82 05/18/17 14:30 97 Room Air 05/18/17 13:47 36.8 86 17 150/83 99 Room Air General Appearance: WD/WN, no apparent distress Head: normocephalic Eyes: normal inspection ENT: normal ENT inspection, pharynx normal Neck: supple, no JVD Respiratory/Chest: chest non-tender, lungs clear, normal breath sounds Cardiovascular: regular rate, rhythm, no edema, no gallop Abdomen/GI: normal bowel sounds, non tender, soft Back: normal inspection, no CVA tenderness Extremities/Musculoskelatal: normal inspection, no calf tenderness, normal capillary refill Neurologic/Psych: temple marker II-XII nml as tested, no motor/sensory deficits, alert Skin: no rash, + pallor Diagnostics Laboratory Results Results Past 24 Hours Test 05/18/17 14:30 05/18/17 15:40 Range/Units White Blood Count 3.57 4.8-10.8 K/uL Red Blood Count 3.51 4.7-6.1 M/uL Hemoglobin 10.5 14.0-18.0 g/dL Hematocrit 31.1 42-52 % Mean Corpuscular Volume 88.6 80-100 fL Mean Corpuscular Hemoglobin 29.9 25-34 pg Mean Corpuscular Hemoglobin Concent 33.8 32-36 g/dl Platelet Count 85 130-400 K/uL Mean Platelet Volume 9.0 7.4-10.4 fL Neutrophils (%) (Auto) 65.8 % Lymphocytes (%) (Auto) 22.1 % Monocytes (%) (Auto) 10.4 % Eosinophils (%) (Auto) 1.4 % Basophils (%) (Auto) 0.3 % Neutrophils # (Auto) 2.35 1.4-6.5 K/uL Lymphocytes # (Auto) 0.79 1.2-3.4 K/uL Monocytes # (Auto) 0.37 0.11-0.59 K/uL Eosinophils # (Auto) 0.05 0-0.5 K/uL Basophils # (Auto) 0.01 0-0.2 K/uL RDW Standard Deviation 48.3 36.4-46.3 fL RDW Coefficient of Variation 14.9 11.5-14.5 % Immature Granulocyte % (Auto) 0.0 % Immature Granulocyte # (Auto) 0.00 0.00-0.02 K/uL Prothrombin Time 10.2 9.0-12.0 SECONDS Prothromb Time International Ratio 1.0 0.9-1.1 Activated Partial Thromboplast Time 25.4 21.0-31.0 SECONDS Partial Thromboplastin Ratio 1.0 Sodium Level 136 136-145 mmol/L Potassium Level 4.7 3.5-5.1 mmol/L Chloride Level 103 98-107 mmol/L Carbon Dioxide Level 25 21-32 mmol/L Anion Gap 8.0 3-11 mmol/L Blood Urea Nitrogen 41 7-18 mg/dl Creatinine 3.31 0.60-1.40 mg/dl Est Creatinine Clear Calc Drug Dose 19.3 ml/min Estimated GFR () 19.6 Estimated GFR (Non- 16.9 BUN/Creatinine Ratio 12.5 10-20 Random Glucose 154 70-99 mg/dl Calcium Level 8.5 8.5-10.1 mg/dl Magnesium Level 2.3 1.8-2.4 mg/dl Total Bilirubin 0.6 0.2-1 mg/dl Aspartate Amino Transf (AST/SGOT) 42 15-37 U/L Alanine Aminotransferase (ALT/SGPT) 56 12-78 U/L Alkaline Phosphatase 209 45-117 U/L Troponin I < 0.015 0-0.045 ng/ml Total Protein 7.0 6.4-8.2 gm/dl Albumin 3.1 3.4-5.0 gm/dl Globulin 3.9 2.5-4.0 gm/dl Albumin/Globulin Ratio 0.8 0.9-2 Thyroid Stimulating Hormone (TSH) 2.440 0.300-4.500 uIu/ml Urine Color RED Urine Appearance TURBID CLEAR Urine pH 6.5 4.5-7.5 Urine Specific [place] 1.015 1.000-1.030 Urine Protein 2+ NEG Urine Glucose (UA) NEG NEG Urine Ketones NEG NEG Urine Occult Blood 3+ NEG Urine Nitrite NEG NEG Urine Bilirubin NEG NEG Urine Urobilinogen NEG NEG Urine Leukocyte Esterase NEG NEG Urine RBC >30 0-4 /hpf Urine WBC 10-30 0-5 /hpf Urine Epithelial Cells 5-10 0-5 /lpf Urine Bacteria 1+ NEG Microbiology Results 05/18/17 Urine Culture, Received Pending Diagnostic Radiology CT abdomen: 1. Bladder mass, consistent with the patient's known bladder carcinoma 2. The bladder mass results in right-sided hydronephrosis and hydroureter 3. No solid renal masses identified 4. 34 mm infrarenal abdominal aortic aneurysm 5. Suspected interstitial lung disease with subpleural reticulation Impression Assessment and Plan 77 y/o M Hx HTN, bladder CA, hematuria. The pt was referred to the hospital due to worsening renal function and R hydronephrosis owing to compression from his bladder mass. He has chronic hematuria which he states has increased in severity as he is passing clots. He denies any SOB, CP, lightheadedness or fevers. Initial labs are notable for JAVIER in addition to pancytopenia which is appears relatively stable aside form a slightly lower Hb. 1) Obstruction of R ureter, JAVIER - due to bladder mass - urology to evaluate - may undergo stenting AM - will keep NPO after midnight. 2) Hematuria with anemia - we will place a [place] and irrigate as he is having clots. We will trend his Hb and transfuse as needed. 3) Thrombocytopenia, leukopenia - this may be due to receiving immune therapy until Apr - we will trend his CBC which is not currently critical 4) CA - can f/u with his oncologist Full code - SCDs due to active bleeding - total time for this admit including review of labs, meds, imaging, records - discussion with pt and R attending - 35 min Resuscitation Status VTE Prophylaxis Will order VTE Prophylaxis: Yes
[2017-05-18 18:18] VITALS: BP 189/84; PULSE 83; TEMP 36.8; O2SAT 97
[2017-05-18 18:19] VITALS: O2SAT 97
[2017-05-18] MEDS: SODIUM CHLORIDE 0.9% 1000ML 1,000 ML IV SCH (20:29)
[2017-05-18] MEDS: TAMSULOSIN HCL 0.4 MG CAP PO SCH (20:29)
[2017-05-18 23:02] VITALS: BP 179/96; PULSE 75; TEMP 37; O2SAT 95
[2017-05-19] VITALS (8 sets, daily range): BP systolic 117–146; BP diastolic 70–83; PULSE 69–76; TEMP 36.1–36.8; O2SAT 97–99
[2017-05-19] MEDS: SODIUM CHLORIDE 0.9% 1000ML 1,000 ML IV SCH ×2 (01:20→08:43)
[2017-05-19] MEDS: METOPROLOL SUCC 25MG EXT REL TAB PO SCH (08:27)
[2017-05-19 09:28] LABS: HEMATOCRIT 29.8 % (42-52); HEMOGLOBIN 9.9 g/dL (14.0-18.0); MEAN CORPUSCULAR HEMOGLOBIN 29.6 pg (25-34); MEAN CORPUSCULAR HGB CONC 33.2 g/dl (32-36); RED CELL DISTRIBUTION WIDTH CV 14.8 % (11.5-14.5); RED CELL DISTRIBUTION WIDTH SD 48.7 fL (36.4-46.3); WHITE BLOOD COUNT 4.07 K/uL (4.8-10.8)
[2017-05-19 09:45] LABS: MEAN PLATELET VOLUME 9.3 fL (7.4-10.4); PLATELET COUNT 95 K/uL (130-400)
--- NOTE | 2017-05-19 09:46 | Urology Consultation ---
History General Date of Service: May 19, 2017. Primary Care Physician: Salvador Liu D.O. Pt seen a urologist before?: Yes If yes, why?: Bladder cancer History of Present Illness 69-year-old gentleman status post TURBT 2 in January 2017 First resection was complicated by possible perforation Ultimate pathology revealed high-grade/low-grade noninvasive bladder cancer He did have BCG, which was poorly tolerated For the past several weeks, he has been feeling extreme fatigue, increased hematuria, and general ill feeling Had recent CT which reveals right-sided hydronephrosis (moderate) as well a large bladder tumor encompassing approximately 60% of his bladder wall with thickening of the unaffected areas. Baseline creatinine around 1.7 -currently creatinine is around 3.3 (labs today pending) Hemoglobin stable despite the hematuria Imaging Imaging: CT Laboratory Labs were reviewed and are within normal limits unless listed below. Labs are available in the chart and at [facility] Problem List Medical Problems: (1) Acute renal failure Status: Acute (2) Hydronephrosis Status: Acute Past History cancer, hypertension, renal disease Past Surgical History: other (TURBT) Family History No pertinent family history Social History Hx Tobacco Use In Past Year?: Yes (Quit 7 months ago. ) Smoking: non-smoker Marital status: Occupation status: retired Allergies Coded Allergies: No Known Allergies (Unverified , 05/10/17) Medications Home Medications: Home Meds and Scripts Medications Dose Route/Sig Max Daily Dose Days Date Category Iron (Ferrous Sulfate) Unknown Strength Tab 1 Tab PO LUNCH 05/18/17 Reported Multivitamin (Multivitamins) Tab 1 Tab PO NOON 05/07/17 Reported Toprol Xl (Metoprolol Succinate) 25 Mg Tab 12.5 Mg PO QAM 12/04/16 Reported Proscar (Finasteride) 5 Mg Tab 5 Mg PO QAM 11/23/16 Reported Vitamin C (Ascorbic Acid) 1,000 Mg Tab 1,000 Mg PO QAM 11/23/16 Reported Flomax (Tamsulosin Hcl) 0.4 Mg Cap 0.4 Mg PO QPM 11/23/16 Reported Inpatient Medications: Current Inpatient Medications Medications (Trade) Dose Ordered Sig/Sunny Route Start Time Stop Time Status Last Admin Dose Admin Finasteride (Proscar Tab) 5 mg QAM PO 05/19/17 09:00 06/18/17 08:59 Metoprolol Succinate (Toprol Xl Tab) 12.5 mg QAM PO 05/19/17 09:00 06/18/17 08:59 05/19/17 08:27 12.5 MG Tamsulosin HCl (Flomax Cap) 0.4 mg QPM PO 05/18/17 21:00 06/17/17 20:59 05/18/17 20:29 0.4 MG Ascorbic Acid (Vitamin C Tab) 1,000 mg QAM PO 05/19/17 09:00 06/18/17 08:59 Ferrous Sulfate (Feosol Tab) 325 mg DAILY@1300 PO 05/19/17 13:00 06/18/17 12:59 Acetaminophen (Tylenol Tab) 650 mg Q4H PRN PO 05/18/17 16:00 06/17/17 15:59 Al Hydrox/Mg Hydrox/Simethicone (Maalox Max Susp) 15 ml Q4H PRN PO 05/18/17 16:00 06/17/17 15:59 Magnesium Hydroxide (Milk Of Magnesia Susp) 30 ml Q6H PRN PO 05/18/17 16:00 06/17/17 15:59 Polyethylene (Miralax Powder Packet) 17 gm DAILY PRN PO 05/18/17 16:00 06/17/17 15:59 Ondansetron HCl (Zofran Inj) 4 mg Q6H PRN IV 05/18/17 16:00 06/17/17 15:59 Morphine Sulfate (MoRPHine SULFATE INJ) 2 mg Q3H PRN IV 05/18/17 16:00 06/01/17 15:59 Sodium Chloride 1,000 ml @ 150 mls/hr Q6H40M IV 05/18/17 18:48 05/19/17 14:47 05/19/17 08:43 150 MLS/HR Review of Systems Review of Systems Constitutional: No see HPI, No fever, No chills, No frequent headaches, No weight loss, No problem reported Eyes: No see HPI, No blurred vision, No double vision, No eye pain, No loss of night vision, No problem reported Neurological: No see HPI, No dizzy, No passing out, No numbness/tingling, No seizures, No problem reported Endocrine: No see HPI, No excessive thirst, No too hot, No too cold, No tired/ sluggish, No problem reported Gastrointestinal: + abdominal pain Cardiovascular: No see HPI, No heart murmur, No chest pain, No angina, No irregular heartbeat, No palpitations, No swelling ankles/feet, No problem reported Respiratory: No see HPI, No shortness of breath, No wheezing, No coughing up blood, No chronic cough, No problem reported Skin: No see HPI, No rash, No boils, No dry skin, No problem reported Musculoskeletal: No see HPI, No joint pain, No neck pain, No back pain, No arthritis, No problem reported Blood / Lymphatic: No see HPI, No bleed easily, No bruise easily, No swollen glands, No problem reported Ears / Nose / Throat: No see HPI, No hearing loss, No sinus, No hoarse voice, No sore throat, No problem reported Psychologic / Mental: No see HPI, No nervous, No trouble remembering, No difficulty sleeping, No problem reported Male : + blood in urine, + problem reported All Other Systems: Reviewed and Negative Physical Exam Vital Signs: Vital Signs Past 12 Hours Date Time Temp Pulse Resp B/P (MAP) Pulse Ox O2 Delivery O2 Flow Rate FiO2 05/19/17 08:26 36.8 76 18 124/70 (88) 97 Room Air 05/19/17 07:20 Room Air 05/18/17 23:02 37.0 75 17 179/96 (123) 95 Room Air Physical Exam: General Appearance: WD/WN, no apparent distress Eyes: bilateral eyes normal inspection ENT: normal ENT inspection, hearing grossly normal Neck: supple, no adenopathy Respiratory/Chest: no respiratory distress, no accessory muscle use Cardiovascular: regular rate, rhythm, no edema Gastrointestinal: Abdomen: normal abdomen Bladder: normal bladder, pertinent finding (Grossly bloody urine) Renal: normal renal Extremities: no pedal edema, no calf tenderness Neurologic/Psychiatric: alert, normal mood/affect, oriented x 3 Skin: warm/dry Lymphatic: no adenopathy Assessment & Plan Assessment & Plan Bladder cancer resected in January 2017, now with significant recurrence causing right hydronephrosis Likely has multifactorial renal failure secondary to the obstruction of the right kidney as well as contrast nephropathy Hydrated overnight, labs today pending Given the significant bladder tumor, hematuria and overall symptomatology, I recommended we consider cystoscopy and TURBT with possible right ureteral stent placement I had a very rober discussion with the family regarding this chances of success of the surgery -specifically mentioning that I may not be able to place a stent successfully nor may be able to entirely resect this tumor There are very understanding of the situation would prefer to move forward with the idea of surgery today
[2017-05-19 09:59] LABS: CALCIUM 8.2 mg/dl (8.5-10.1); CREATININE 2.91 mg/dl (0.60-1.40); POTASSIUM 5.1 mmol/L (3.5-5.1)
[2017-05-19] MEDS ORDERED: PROPOFOL IV EMULSION 10 MG/ML 20 ML VIAL IV ONE (10:44)
[2017-05-19] MEDS ORDERED: DEXAMETHASONE SOD INJ 4 MG/ML VIAL ONE (10:44)
[2017-05-19] MEDS ORDERED: LIDOCAINE HCL 2% 2 ML VIAL (20MG/ML) ONE (10:44)
[2017-05-19] MEDS ORDERED: ONDANSETRON INJ 2 MG/ML 2 ML VIAL ONE (10:44)
[2017-05-19] MEDS ORDERED: FENTANYL CITRATE INJ 50 MCG/1 ML 2 ML VIAL ONE ×3 (10:45→12:13)
--- NOTE | 2017-05-19 11:15 | Hospitalist Progress Note ---
Hospitalist Progress Note Date of Service May 19, 2017. (Huyen Warren ., TARAC) Subjective Pt evaluation today including: conversation w/ patient, conversation w/ family ( and daughter at bedside), physical exam, chart review, lab review, review of studies, conversation w/ student union consultant, review of inpatient medication list Pain: None PO Intake: NPO for cystoscopy, tolerated dinner well Voiding: munoz catheter in place (gross hematuria) Patient initially seen prior to procedure. The patient reports feeling well. He denies any abdominal pain currently. He states he has had ongoing hematuria since his last bladder tumor resection, but it has been getting progressively worse. He notes that he completed 3 immunotherapy treatments from March to April but had to stop due to side effects and worsening hematuria. He notes passing large blood clots at home that are uncomfortable. Currently he reports some dysuria in addition to the gross hematuria. The patient denies fevers, chills, sweats, chest pain, palpitations, claudication, cough, wheezing, shortness of breath, nausea, vomiting, abdominal pain, urinary retention, paralysis, focal motor weakness, numbness and tingling. Called to reassess patient in PACU following cystoscopy, TURBT and right ureteral stent placement. Pt developed severe hypertension that persisted despite receiving 30 mg of labetalol and 20 mg hydralazine. Per anesthesiologist and PACU nursing, the patient was bleeding rober blood with lots of clotting. The patient at that time felt dizzy and had some suprapubic pain but denied any chest pain or shortness of breath. Additional Comments: See HPI for pertinent positives and negatives. All other systems reviewed and negative. (Huyen Warren ., TARAC) Objective Vital Signs Date Time Temp Pulse Resp B/P (MAP) Pulse Ox O2 Delivery O2 Flow Rate FiO2 05/19/17 08:26 36.8 76 18 124/70 (88) 97 Room Air 05/19/17 07:20 Room Air 05/18/17 23:02 37.0 75 17 179/96 (123) 95 Room Air 05/18/17 20:15 Room Air 05/18/17 18:19 97 Room Air 05/18/17 18:18 36.8 83 16 189/84 (119) 97 Room Air 05/18/17 17:00 Room Air 05/18/17 15:45 78 20 157/100 96 3/9/18 14:33 82 05/18/17 14:30 97 Room Air 05/18/17 13:47 36.8 86 17 150/83 99 Room Air (Huyen Warren, PA-C) Physical Exam Notes: General appearance: Well-developed, well-nourished, no apparent distress Head: Normocephalic, atraumatic Eyes: Normal inspection, PERRL, EOMI ENT: Normal ENT inspection, hearing grossly normal, pharynx normal Neck: Supple, no JVD, trachea midline Respiratory/Chest: Lungs clear to auscultation, normal breath sounds, no respiratory distress Cardiovascular: Regular rate & rhythm, no gallop, no murmur Abdomen/GI: +Abdomen soft and non-tender on initial examination. In PACU, suprapubic area firmer and TTP. Normal bowel sounds : +Munoz in place with gross hematuria. Several clots manually irrigated from catheter in PACU Extremities/Musculoskeletal: Normal inspection, no calf tenderness, no pedal edema Neurological/Psych: Alert, normal mood/affect, oriented x 3 Skin: Normal color, warm/dry, no rash (Huyen Warren ., PA-C) Laboratory Results Last 24 Hours Test 05/18/17 14:30 05/18/17 15:40 05/18/17 19:03 05/19/17 00:34 White Blood Count 3.57 K/uL Red Blood Count 3.51 M/uL Hemoglobin 10.5 g/dL 9.7 g/dL 9.7 g/dL Hematocrit 31.1 % Mean Corpuscular Volume 88.6 fL Mean Corpuscular Hemoglobin 29.9 pg Mean Corpuscular Hemoglobin Concent 33.8 g/dl Platelet Count 85 K/uL Mean Platelet Volume 9.0 fL Neutrophils (%) (Auto) 65.8 % Lymphocytes (%) (Auto) 22.1 % Monocytes (%) (Auto) 10.4 % Eosinophils (%) (Auto) 1.4 % Basophils (%) (Auto) 0.3 % Neutrophils # (Auto) 2.35 K/uL Lymphocytes # (Auto) 0.79 K/uL Monocytes # (Auto) 0.37 K/uL Eosinophils # (Auto) 0.05 K/uL Basophils # (Auto) 0.01 K/uL RDW Standard Deviation 48.3 fL RDW Coefficient of Variation 14.9 % Immature Granulocyte % (Auto) 0.0 % Immature Granulocyte # (Auto) 0.00 K/uL Prothrombin Time 10.2 SECONDS Prothromb Time International Ratio 1.0 Activated Partial Thromboplast Time 25.4 SECONDS Partial Thromboplastin Ratio 1.0 Sodium Level 136 mmol/L Potassium Level 4.7 mmol/L Chloride Level 103 mmol/L Carbon Dioxide Level 25 mmol/L Anion Gap 8.0 mmol/L Blood Urea Nitrogen 41 mg/dl Creatinine 3.31 mg/dl Est Creatinine Clear Calc Drug Dose 19.3 ml/min Estimated GFR () 19.6 Estimated GFR (Non- 16.9 BUN/Creatinine Ratio 12.5 Random Glucose 154 mg/dl Calcium Level 8.5 mg/dl Magnesium Level 2.3 mg/dl Total Bilirubin 0.6 mg/dl Aspartate Amino Transf (AST/SGOT) 42 U/L Alanine Aminotransferase (ALT/SGPT) 56 U/L Alkaline Phosphatase 209 U/L Troponin I < 0.015 ng/ml Total Protein 7.0 gm/dl Albumin 3.1 gm/dl Globulin 3.9 gm/dl Albumin/Globulin Ratio 0.8 Thyroid Stimulating Hormone (TSH) 2.440 uIu/ml Urine Color RED Urine Appearance TURBID Urine pH 6.5 Urine Specific [place] 1.015 Urine Protein 2+ Urine Glucose (UA) NEG Urine Ketones NEG Urine Occult Blood 3+ Urine Nitrite NEG Urine Bilirubin NEG Urine Urobilinogen NEG Urine Leukocyte Esterase NEG Urine RBC >30 /hpf Urine WBC 10-30 /hpf Urine Epithelial Cells 5-10 /lpf Urine Bacteria 1+ Test 05/19/17 08:39 White Blood Count 4.07 K/uL Red Blood Count 3.35 M/uL Hemoglobin 9.9 g/dL Hematocrit 29.8 % Mean Corpuscular Volume 89.0 fL Mean Corpuscular Hemoglobin 29.6 pg Mean Corpuscular Hemoglobin Concent 33.2 g/dl RDW Standard Deviation 48.7 fL RDW Coefficient of Variation 14.8 % Platelet Count 95 K/uL Mean Platelet Volume 9.3 fL Sodium Level 137 mmol/L Potassium Level 5.1 mmol/L Chloride Level 109 mmol/L Carbon Dioxide Level 22 mmol/L Anion Gap 7.0 mmol/L Blood Urea Nitrogen 37 mg/dl Creatinine 2.91 mg/dl Est Creatinine Clear Calc Drug Dose 22.3 ml/min Estimated GFR () 22.9 Estimated GFR (Non- 19.7 BUN/Creatinine Ratio 12.6 Random Glucose 100 mg/dl Calcium Level 8.2 mg/dl Magnesium Level 2.1 mg/dl (Huyen Warren ., JEREMY) Assessment and Plan 77 y/o male with a history of high grade urothelial carcinoma, gross hematuria, BPH, HTN, HLD, COPD, and CKD stage III who presents to the hospital with worsening renal function and right hydronephrosis due to bladder mass. CT abdomen/pelvis shows bladder mass compression causing right hydronephrosis and hydroureter. 34 mm infrarenal AAA also noted. Right hydronephrosis due to bladder mass, bladder cancer, gross hematuria-- ongoing -Admit to med/surg. Will transfer to telemetry from PACU for closer monitoring of BP and to administer IV antihypertensives if need be. -Urology consulted, appreciate recs: Spoke to Dr. Duncan. Was able to resect large bladder tumor and place right ureteral stent. Re-evaluated patient in PACU and performed manual irrigation, returning several large clots. Recommend prn irrigation with possible trial of voiding tomorrow. -NPO except meds for procedure -Continue Munoz catheter, irrigate prn -Hgb stable at 10.3, no need to transfuse at this time -Continue daily iron supplement -Urine culture pending Acute renal failure on CKD stage III--improving -Creatinine 2.91 on 05/19, down from 3.31. Baseline creatinine 1.2-1.4 -NSS at 150 cc/hr x 3L Elevated BP, suprapubic pain--improving -Sustained elevated BP in PACU following procedure, up to 223/123. Anesthesia administered total of 30 mg labetalol and 20 mg hydralazine with minimal response -EKG NSR, no ischemic changes -Stat H&H stable at 10.3 (had been 9.9 earlier in the am) -After manual irrigation of several large clots, pt's pain and BP improved -BP now 130s-140s systolically -Will monitor in telemetry -If hypertensive again, cover with hydralazine 10 mg IV q6h prn SBP >180 Pancytopenia--improving -Pt did have recent immunotherapy in April -Continue to monitor BPH -Continue Proscar 5 mg PO qd and Flomax 0.4 mg PO hs HTN--stable -Continue Toprol XL 12.5 mg PO qd COPD--stable, no acute exacerbation. Not currently medicated for this DVT prophylaxis -Hold chemical ppx due to gross hematuria -SCDs Code Status -Level I, FULL RESUSCITATION STATUS Total time spent in direct patient care between both visits 70 minutes (Huyen Warren, JEREMY) Reviewed: Pt Seen/Exam by Me (Josefina Westbrook MD) History Physician Stamp Press Operator Supervision Note: I was present with ERIS Warren during the history and exam. I discussed the case with her and agree with the findings and plan as documented in the note. Any exceptions or clarifications are listed here: Patient seen in the PACU for hypertensive urgency, lightheadedness, and lower abdominal pain. His blood pressure did come down with labetalol and hydralazine as above. Urology then did come down and removed large clots from the bladder which improved his abdominal pain significantly. ECG was within normal limits. The patient felt improved after irrigation of the clots from the bladder. He will be transferred to telemetry for overnight in case he has hypertensive urgency again. Vitals reviewed Gen: AAOx3, NAD HEENT: anicteric sclerae, EOMI CV: RRR no mgr nl S1S2 Pulm: CTAB no wcr Abd: +BS firm in the suprapubic and lower abdominal region with tenderness without guarding or rebound tenderness, no masses or hernias Ext: no edema Skin: no rashes, warm/dry Documented By: Josefina Westbrook (Josefina Westbrook MD)
[2017-05-19] MEDS ORDERED: METHYLENE BLUE 0.5% 10 ML VIAL ONE (12:23)
[2017-05-19] MEDS ORDERED: Cysto-Conray II 17.2% 250ML BOTTLE ONE (12:37)
[2017-05-19] MEDS ORDERED: GLYCOPYRROLATE INJ 0.2 MG/ML VIAL ONE (12:39)
[2017-05-19] MEDS ORDERED: NEOSTIGMINE METHYLSULFATE 5 MG/5 ML SYR ONE (12:39)
--- NOTE | 2017-05-19 12:56 | [facility] Operative Report ---
Operative Report Operative Date May 19, 2017. Pre-Operative Diagnosis Right hydronephrosis, Bladder Tumor, Hematuria Post-Operative Diagnosis Right hydronephrosis, Bladder Tumor, Hematuria Procedure(s) Performed Transurethral Resection of Bladder Tumor- Large, Right Ureteral Stent Placement ([id number]) Surgeon Dr. Duncan Track Maintainer Surgeon(s) NONE Estimated Blood Loss 15 ml Findings See dictation Specimens Pathology A: Bladder Tumor Chips for Pathology Drains Rogers Anesthesia Type General Complication(s) none Disposition yes Recovery Room / PACU Indications Renal failure; hematuria; bladder tumor Description of Procedure Patient was identified in the preoperative holding area, appropriate informed consents reviewed and completed he was transported to the operating suite. Upon arrival he received appropriate preoperative antibiotics in the form of Ancef. Adequate general anesthesia was achieved, and he was placed in dorsal lithotomy position where he was sterilely prepped and draped in standard fashion. Of note he had a Rogers catheter prior to arrival in the operating suite and was removed prior to prep. To begin the surgical portion of the case a 27 [place] resectoscope with 30 lens and visual dry house operator was passed per urethra. Inspection of the urethra revealed no evidence of stricture disease. His prostate was moderately obstructive from lateral lobe hypertrophy. Entry into the bladder immediately revealed grossly bloody urine with numerous large clots. I irrigated these clots out of the bladder and then continued to inspect the bladder wall. On the patient's left lateral wall, there were 3-4 distinct papillary bladder tumors each approximately 2 cm in largest dimension- these were on the upper aspect of the posterior and left lateral wall. The entire right lateral wall of the bladder was grossly protuberant with a very abnormal appearance, however did not have classic papillary architecture. There is very friable tissue of the right lateral wall did not appear to be simple irritation from BCG, but I am concerned represents higher grade disease/ malignancy. This aspect of the bladder was actively bleeding, and I was able to cauterize the bleeding vessels before resecting the papillary tumors in the left lateral wall and ultimately the bulky disease from the right lateral wall. Of note, the left ureteral orifice was easily visualized throughout the case, but at the beginning of the case the right ureteral orifice was not possible to locate. Following my full resection, I inspected the area for anticipated finding the UO, but it was not readily apparent. I probed several dimpled areas utilizing a sensor wire and a 5 [place] open-ended catheter, however I was unsuccessful in finding you well. Methylene blue was instilled, but we saw no blue efflux from this area. I ultimately utilized to 70 lens, and angle-tip catheter, and a straight sensor wire and fortunately found a dimpled area that allowed the wire to pass. The wire passed to the presumed area of the kidney and was able to advance the catheter over it. After withdrawing the catheter, there was return of a blue tinged urine. To further confirm my position, I did pass contrast into the collecting system identifying a hydronephrotic right kidney. I replaced the wire and placed a 6 [place] by 22-32 cm double-J ureteral stent seeing excellent curl in the kidney as well as the bladder. I confirm that all chips had been irrigated out of the bladder and passed off the table specimens labeled bladder tumor for routine pathology, I also ensured excellent hemostasis and concluded the case. A new Rogers catheter was inserted , the patient was reversed from anesthesia and taken to the PACU in stable condition. I attest to the content of the Intraoperative Record and any orders documented therein. Any exceptions are noted below.
[2017-05-19] MEDS ORDERED: EpHEDrine SULFATE INJ 50 MG/ML AMP IV PRN (13:15)
[2017-05-19] MEDS ORDERED: NURSING VERBAL MED ORDER ONE ×3 (13:15→13:49)
[2017-05-19] MEDS ORDERED: HYDROmorphone INJ 1 MG/ML SYR IV PRN (13:15)
[2017-05-19] MEDS ORDERED: ATROPINE SULFATE 0.1 MG/ML 5ML SYR IV PRN (13:15)
[2017-05-19] MEDS ORDERED: FENTANYL CITRATE INJ 50 MCG/1 ML 2 ML VIAL IV PRN (13:15)
[2017-05-19] MEDS ORDERED: ONDANSETRON INJ 2 MG/ML 2 ML VIAL IV PRN (13:15)
[2017-05-19] MEDS ORDERED: HydrALAZINE HCL 20 MG/ML VIAL ONE (13:32)
[2017-05-19 14:02] LABS: HEMATOCRIT 31.4 % (42-52); HEMOGLOBIN 10.3 g/dL (14.0-18.0)
--- NOTE | 2017-05-19 14:33 | Progress Note ---
Progress Note Date of Service May 19, 2017. Progress Note Call back to the PACU to evaluate the patient Shortly after returning to the PACU following surgery, he became acutely hypertensive to 210/100 Simultaneously, he started to show more blood in his urine Required manual irrigation 2 by nursing staff Upon evaluation by myself, his blood pressure was improving since substantially -but he had received numerous medication doses from anesthesia I irrigated his catheter manually, and irrigated several large clots after which the urine began to clear appropriately After feeling that there is no continued, significant active bleeding, I concluded my irrigation We will leave the catheter in overnight with potential voiding trial in the morning if no further issues Given his hypertension, he will be monitored on the telemetry floor rather than the standard postop Med/Surg floor
--- NOTE | 2017-05-19 14:48 | Anesthesiology Progress Note ---
Anesthesia Post Op Note Date & Time May 19, 2017 at 14:35 Vital Signs Pain Intensity: 0 Vital Signs Past 12 Hours Date Time Temp Pulse Resp B/P (MAP) Pulse Ox O2 Delivery O2 Flow Rate FiO2 05/19/17 14:10 74 22 162/93 95 Nasal Cannula 4 05/19/17 14:00 72 20 178/95 96 Nasal Cannula 4 05/19/17 13:50 71 20 191/109 97 Nasal Cannula 4 05/19/17 13:40 67 20 206/114 98 Nasal Cannula 4 05/19/17 13:30 76 19 223/123 97 Nasal Cannula 4 05/19/17 13:20 77 16 191/105 97 Nasal Cannula 4 05/19/17 13:10 77 18 190/96 98 Oxymask 10 05/19/17 13:00 36.1 90 20 190/96 100 Oxymask 10 05/19/17 08:26 36.8 76 18 124/70 (88) 97 Room Air 05/19/17 07:20 Room Air Notes Mental Status: alert / awake / arousable, participated in evaluation Pt Amnestic to Procedure: Yes Nausea / Vomiting: adequately controlled Pain: adequately controlled Airway Patency, RR, SpO2: stable & adequate BP & HR: stable & adequate Hydration State: stable & adequate Anesthetic Complications: no major complications apparent The patient is a 77 y/o male with a history of JESS, COPD, pulmonary fibrosis, HTN, AAA (3.3cm), GERD, OA, thrombocytopenia, CKD and Bladder CA s/p cystoscopy , bladder tumor resection with R ureteral stent placement. On admission, the patient was found to be in acute on chronic renal failure with R hydronephrosis secondary to bladder mass. The patient did well intraoperatively although he did have labile blood pressure ranging from 110s-180/70-100. Preoperatively, his BP was 127/70 although it had been higher on the floor overnight. In recovery, the patient's BP became acutely elevated to 190s-200s/110s. The patient denied any chest pain or shortness of breath and stated he was comfortable. He was given a total of 30mg IV labetalol incrementally and Hydralazine 10mg IV. The patient was also noted to have significant bleeding from his munoz catheter with a total output of 500cc. Dr. Duncan was called stated he would return to evaluate the patient. Meanwhile a hemoglobin was drawn and was stable at 10.3. Medicine was also called and came to the bedside to evaluate as the patient's BP was not appearing to respond to the IV medication. Dr. Duncan arrived at the bedside and was able to remove clot and irrigate the munoz relieving the abdominal discomfort that the patient had started to complain of. The patient's BP also significantly improved to the 130s-140s/70s HR 70s. An EKG showed NSR with no ischemic changes. The patient will be transferred to telemetry for closer monitoring overnight. He felt well on discharge with no complaints.
[2017-05-19] MEDS ORDERED: CEFAZOLIN 2000MG IV PUSH 15 ML IV SCH (15:00)
[2017-05-19] MEDS ORDERED: HydrALAZINE HCL 20 MG/ML VIAL IV. PRN (15:30)
[2017-05-19] MEDS: FINASTERIDE 5 MG TAB PO SCH (15:30)
[2017-05-19] MEDS: ASCORBIC ACID 500 MG TAB PO SCH (15:30)
[2017-05-19] MEDS: FERROUS SULFATE 325 MG TAB PO SCH (15:30)
[2017-05-19] MEDS ORDERED: LABETALOL HCL IV 5 MG/ML 20ML IV STA ×2 (15:40→15:43)
[2017-05-19] MEDS ORDERED: LABETALOL HCL IV 5 MG/ML 20ML IV PRN (15:45)
--- NOTE | 2017-05-19 15:47 | DIAGNOSTIC IMAGING REPORT ---
RETROGRADE INCLUDES KUB HISTORY: 77 years-old Male RETROGRADE/STENT retrograde cystourethrogram with stent placement. COMPARISON: CT abdomen and pelvis 05/10/2017. TECHNIQUE: Single spot fluoroscopic image of the right upper abdomen was obtained utilizing 32.5 seconds fluoroscopy time FINDINGS: The proximal portion of a right ureteral stent is noted which appears to be within the expected region of the right renal pelvis. The mid and distal portions of the right stent are not imaged. IMPRESSION: Fluoroscopic assistance as above. Please see procedural report for further details. The above report was generated using voice recognition software. It may contain grammatical, syntax or spelling errors. Electronically signed by: Enrique Titus M.D. 05/19/2017 3:45 PM Dictated Date/Time: 05/19/2017 3:44 PM
[2017-05-19] MEDS: TAMSULOSIN HCL 0.4 MG CAP PO SCH (21:01)
[2017-05-20] VITALS (8 sets, daily range): BP systolic 127–160; BP diastolic 70–83; PULSE 69–88; TEMP 36.6–37; O2SAT 95–97
[2017-05-20] MEDS ORDERED: CEFAZOLIN SOD 2000MG/15 ML IV PUSH IV ONE (06:00)
[2017-05-20] MEDS ORDERED: CEFAZOLIN 2000MG IV PUSH 15 ML IV SCH (06:00)
[2017-05-20 06:55] LABS: HEMATOCRIT 29.1 % (42-52); HEMOGLOBIN 9.9 g/dL (14.0-18.0); MEAN CELL VOLUME 88.7 fL (80-100); MEAN CORPUSCULAR HEMOGLOBIN 30.2 pg (25-34); RED CELL DISTRIBUTION WIDTH CV 15.2 % (11.5-14.5); RED CELL DISTRIBUTION WIDTH SD 49.6 fL (36.4-46.3); WHITE BLOOD COUNT 6.67 K/uL (4.8-10.8)
[2017-05-20 07:01] LABS: MEAN PLATELET VOLUME 9.3 fL (7.4-10.4); PLATELET COUNT 72 K/uL (130-400)
[2017-05-20 07:30] LABS: CALCIUM 8.5 mg/dl (8.5-10.1); CREATININE 1.93 mg/dl (0.60-1.40); POTASSIUM 4.7 mmol/L (3.5-5.1)
[2017-05-20] MEDS: METOPROLOL SUCC 25MG EXT REL TAB PO SCH (07:46)
[2017-05-20] MEDS: FINASTERIDE 5 MG TAB PO SCH (07:47)
[2017-05-20] MEDS: ASCORBIC ACID 500 MG TAB PO SCH (07:47)
--- NOTE | 2017-05-20 08:54 | Progress Note ---
Subjective Date of Service: May 20, 2017. Subjective Pt evaluation today including: conversation w/ patient, conversation w/ family , physical exam, chart review, lab review Voiding: munoz catheter in place Did very well overnight No hypertension No problems with his catheter No pain Ambulating Tolerating diet Problem List Medical Problems: (1) Acute renal failure Status: Acute (2) Hydronephrosis Status: Acute Review of Systems Constitutional: No see HPI, No fever, No chills, No sweats, No weight loss, No weakness, No fatigue, No problem reported Male : + hematuria, No dysuria, No urinary frequency, No incontinence, No nocturia more than once/night, No slowing stream, No sexual dysfunction, No problem reported Objective Vital Signs Date Time Temp Pulse Resp B/P (MAP) Pulse Ox O2 Delivery O2 Flow Rate FiO2 05/20/17 07:56 36.6 76 18 158/83 (108) 96 05/20/17 04:00 95 Room Air 05/20/17 03:19 36.7 71 18 127/71 (89) 95 Room Air 05/20/17 00:18 36.9 69 18 130/73 (92) 97 Room Air 05/19/17 23:59 97 Room Air 05/19/17 20:00 97 Room Air 05/19/17 19:53 36.5 71 20 127/83 (98) 97 Room Air 05/19/17 19:05 117/70 (86) 05/19/17 16:00 Nasal Cannula 2.0 05/19/17 15:44 36.5 70 15 133/78 (96) 98 Nasal Cannula 3.0 05/19/17 15:20 36.5 69 14 146/78 (100) 99 Nasal Cannula 4.0 05/19/17 15:00 70 14 140/77 95 Nasal Cannula 4 05/19/17 14:57 36.1 73 20 98 4.0 05/19/17 14:50 70 17 140/80 95 Nasal Cannula 4 05/19/17 14:40 36.2 72 16 134/72 95 Nasal Cannula 4 05/19/17 14:30 73 20 134/72 98 Nasal Cannula 4 05/19/17 14:20 74 20 159/89 97 Nasal Cannula 4 05/19/17 14:10 74 22 162/93 95 Nasal Cannula 4 3/10/18 14:00 72 20 178/95 96 Nasal Cannula 4 05/19/17 13:50 71 20 191/109 97 Nasal Cannula 4 05/19/17 13:40 67 20 206/114 98 Nasal Cannula 4 05/19/17 13:30 76 19 223/123 97 Nasal Cannula 4 05/19/17 13:20 77 16 191/105 97 Nasal Cannula 4 05/19/17 13:10 77 18 190/96 98 Oxymask 10 05/19/17 13:00 36.1 90 20 190/96 100 Oxymask 10 Physical Exam General Appearance: no apparent distress Eyes: normal inspection ENT: hearing grossly normal Neck: no adenopathy Respiratory/Chest: no respiratory distress, no accessory muscle use Cardiovascular: no edema Abdomen: non tender, soft Extremities: no pedal edema Neurologic/Psychiatric: alert, normal mood/affect, oriented x 3 Skin: warm/dry Lymphatic: no adenopathy Comments: Munoz catheter in place with -cranberry/slightly maroon colored urine Laboratory Results Last 24 Hours Test 05/19/17 13:54 05/20/17 06:33 Hemoglobin 10.3 g/dL 9.9 g/dL Hematocrit 31.4 % 29.1 % White Blood Count 6.67 K/uL Red Blood Count 3.28 M/uL Mean Corpuscular Volume 88.7 fL Mean Corpuscular Hemoglobin 30.2 pg Mean Corpuscular Hemoglobin Concent 34.0 g/dl RDW Standard Deviation 49.6 fL RDW Coefficient of Variation 15.2 % Platelet Count 72 K/uL Mean Platelet Volume 9.3 fL Sodium Level 140 mmol/L Potassium Level 4.7 mmol/L Chloride Level 111 mmol/L Carbon Dioxide Level 20 mmol/L Anion Gap 9.0 mmol/L Blood Urea Nitrogen 32 mg/dl Creatinine 1.93 mg/dl Est Creatinine Clear Calc Drug Dose 33.6 ml/min Estimated GFR () 37.6 Estimated GFR (Non- 32.4 BUN/Creatinine Ratio 16.4 Random Glucose 126 mg/dl Calcium Level 8.5 mg/dl Assessment and Plan Postoperative day #1 status post TURBT and right ureteral stent placement Creatinine is improved from 2.9 - 1.9 (nearing baseline) Hemoglobin stable Subjectively doing well Plan for a voiding trial this morning If he continues to do well, plan for possible DC home later today My office will arrange follow-up for later this week
[2017-05-20] MEDS: FERROUS SULFATE 325 MG TAB PO SCH (13:25)
--- NOTE | 2017-05-20 15:10 | Hospitalist Progress Note ---
Hospitalist Progress Note Date of Service May 20, 2017. (Huyen Warren ., ERIS-C) Subjective Pt evaluation today including: conversation w/ patient, conversation w/ family ( and daugther at bedside), physical exam, chart review, lab review, review of inpatient medication list Pain: None PO Intake: Tolerating PO diet Voiding: voiding difficulty (voiding on his own with hematuria, some small clots) The patient reports feeling well. He denies any suprapubic pain currently. Upon my interview, the patient's Rogers had just been removed. Later, nursing has reported that he is now voiding on his own, still with rober hematuria and some small clots. The patient denies fevers, chills, sweats, chest pain, palpitations, claudication, cough, wheezing, shortness of breath, nausea, vomiting, abdominal pain, dysuria, urinary retention, paralysis, weakness, numbness and tingling. Additional Comments: See HPI for pertinent positives and negatives. All other systems reviewed and negative. (Huyen Warren ., ERIS-C) Objective Vital Signs Date Time Temp Pulse Resp B/P (MAP) Pulse Ox O2 Delivery O2 Flow Rate FiO2 05/20/17 12:00 Room Air 05/20/17 11:41 36.6 83 18 138/71 (93) 97 05/20/17 08:00 Room Air 05/20/17 07:56 36.6 76 18 158/83 (108) 96 05/20/17 04:00 95 Room Air 05/20/17 03:19 36.7 71 18 127/71 (89) 95 Room Air 05/20/17 00:18 36.9 69 18 130/73 (92) 97 Room Air 05/19/17 23:59 97 Room Air 05/19/17 20:00 97 Room Air 05/19/17 19:53 36.5 71 20 127/83 (98) 97 Room Air 05/19/17 19:05 117/70 (86) 05/19/17 16:00 Nasal Cannula 2.0 05/19/17 15:44 36.5 70 15 133/78 (96) 98 Nasal Cannula 3.0 05/19/17 15:20 36.5 69 14 146/78 (100) 99 Nasal Cannula 4.0 05/19/17 15:00 70 14 140/77 95 Nasal Cannula 4 05/19/17 14:57 36.1 73 20 98 4.0 (Huyen Warren PA-C) Physical Exam Notes: General appearance: Well-developed, well-nourished, no apparent distress Head: Normocephalic, atraumatic Eyes: Normal inspection, PERRL, EOMI ENT: Normal ENT inspection, hearing grossly normal, pharynx normal Neck: Supple, no JVD, trachea midline Respiratory/Chest: Lungs clear to auscultation, normal breath sounds, no respiratory distress Cardiovascular: Regular rate & rhythm, no gallop, no murmur Abdomen/GI: +Very mild suprapubic tenderness to palpation. Normal bowel sounds , soft : +Rogers removed, voiding on own per nursing w/hematuria and small clots Extremities/Musculoskeletal: Normal inspection, no calf tenderness, no pedal edema Neurological/Psych: Alert, normal mood/affect, oriented x 3 Skin: Normal color, warm/dry, no rash (Huyen Warren ., ERIS-C) Laboratory Results Last 24 Hours Test 05/20/17 06:33 White Blood Count 6.67 K/uL Red Blood Count 3.28 M/uL Hemoglobin 9.9 g/dL Hematocrit 29.1 % Mean Corpuscular Volume 88.7 fL Mean Corpuscular Hemoglobin 30.2 pg Mean Corpuscular Hemoglobin Concent 34.0 g/dl RDW Standard Deviation 49.6 fL RDW Coefficient of Variation 15.2 % Platelet Count 72 K/uL Mean Platelet Volume 9.3 fL Sodium Level 140 mmol/L Potassium Level 4.7 mmol/L Chloride Level 111 mmol/L Carbon Dioxide Level 20 mmol/L Anion Gap 9.0 mmol/L Blood Urea Nitrogen 32 mg/dl Creatinine 1.93 mg/dl Est Creatinine Clear Calc Drug Dose 33.6 ml/min Estimated GFR () 37.6 Estimated GFR (Non- 32.4 BUN/Creatinine Ratio 16.4 Random Glucose 126 mg/dl Calcium Level 8.5 mg/dl (Huyen Warren ., PA-C) Assessment and Plan 77 y/o male with a history of high grade urothelial carcinoma, gross hematuria, BPH, HTN, HLD, COPD, and CKD stage III who presents to the hospital with worsening renal function and right hydronephrosis due to bladder mass. CT abdomen/pelvis shows bladder mass compression causing right hydronephrosis and hydroureter. 34 mm infrarenal AAA also noted. Right hydronephrosis due to bladder mass, bladder cancer, gross hematuria-- ongoing -Admit to med/surg. No acute events overnight on tele, patient in SR with HR 70s-90s. Will transfer back to med/surg -Urology consulted, appreciate recs: D/C Rogers with trial of voiding. If continues to do well, could discharge later from urology standpoint. -Hgb remains stable at 9.9 -Continue daily iron supplement -Urine culture negative Acute renal failure on CKD stage III--improving -Baseline creatinine 1.2-1.4 -Creatinine 1.93 on 05/20, down from 2.91 Elevated BP, suprapubic pain postop--resolving -BP has remained stable since leaving PACU after procedure, transfer back to med /surg Pancytopenia--worsening -Pt did have recent immunotherapy in April -PLT count 72 on 05/20, down from 95. Could be related to significant clotting yesterday. -Continue to monitor BPH -Continue Proscar 5 mg PO qd and Flomax 0.4 mg PO hs HTN--now stable -Continue Toprol XL 12.5 mg PO qd COPD--stable, no acute exacerbation. Not currently medicated for this DVT prophylaxis -Hold chemical ppx due to gross hematuria -SCDs Code Status -Level I, FULL RESUSCITATION STATUS Dispo -From home -Doing well, now voiding on his own. 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 Discussed with ERIS Warren and agree with findings and plan as documented in the note. Any exceptions or clarifications are listed here: Much improved today. Denies CP,SOB, lightheadedness. Urine still dark cranberry color and has some bladder urgency, only one small clot passed all day, no abd pain, no fevers. Vitals reviewed Gen: AAOx3, NAD HEENT: anicteric sclerae, EOMI CV: RRR no mgr nl S1S2 Pulm: CTAB no wcr Abd: +BS, soft NT ND Ext: no edema Skin: no rashes, warm/dry 77 y/o male with a history of high grade urothelial carcinoma, gross hematuria, BPH, HTN, HLD, COPD, and CKD stage III who presents to the hospital with worsening renal function and right hydronephrosis due to bladder mass. CT abdomen/pelvis shows bladder mass compression causing right hydronephrosis and hydroureter. 34 mm infrarenal AAA also noted. 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 -could likely dc to home tomorrow if stable and hematuria not worsening and if textile conservator continues to improve Documented By: Josefina Westbrook (Josefina Westbrook MD)
[2017-05-20] MEDS: TAMSULOSIN HCL 0.4 MG CAP PO SCH (20:34)
[2017-05-21] MEDS ORDERED: COUGH DROP (SUGAR FREE) LOZ 24 LOZ/1 BOX LOZ ONE (00:40)
[2017-05-21] MEDS ORDERED: NURSING DECISION MEDICATION ORDER SCH (00:45)
[2017-05-21] MEDS ORDERED: COUGH DROP (SUGAR FREE) LOZ 24 LOZ/1 BOX LOZ PRN (01:15)
[2017-05-21 06:24] LABS: HEMATOCRIT 28.4 % (42-52); HEMOGLOBIN 9.5 g/dL (14.0-18.0); MEAN CELL VOLUME 89.3 fL (80-100); MEAN CORPUSCULAR HEMOGLOBIN 29.9 pg (25-34); MEAN CORPUSCULAR HGB CONC 33.5 g/dl (32-36); RED CELL DISTRIBUTION WIDTH CV 15.6 % (11.5-14.5); RED CELL DISTRIBUTION WIDTH SD 50.3 fL (36.4-46.3); WHITE BLOOD COUNT 6.62 K/uL (4.8-10.8)
[2017-05-21 06:44] LABS: CALCIUM 8.3 mg/dl (8.5-10.1); CREATININE 1.83 mg/dl (0.60-1.40); POTASSIUM 4.2 mmol/L (3.5-5.1)
[2017-05-21 06:47] LABS: MEAN PLATELET VOLUME 8.9 fL (7.4-10.4); PLATELET COUNT 90 K/uL (130-400)
[2017-05-21 07:48] VITALS: BP 122/76; PULSE 83; TEMP 36.9; O2SAT 96
[2017-05-21 08:07] VITALS: O2SAT 96
[2017-05-21] MEDS: FERROUS SULFATE 325 MG TAB PO SCH (08:37)
[2017-05-21] MEDS: ASCORBIC ACID 500 MG TAB PO SCH (08:37)
[2017-05-21] MEDS: FINASTERIDE 5 MG TAB PO SCH (08:37)
[2017-05-21] MEDS: METOPROLOL SUCC 25MG EXT REL TAB PO SCH (08:38)
--- NOTE | 2017-05-21 08:58 | Progress Note ---
Subjective Date of Service: May 21, 2017. Subjective Pt evaluation today including: conversation w/ patient, chart review, lab review Voiding: no voiding problems 77 yo male s/p urgent TURBT and right ureteral stent placement for right hydronephrosis and ARF. Pt denies pain this morning. States he feels well. Denies n/v. + gross hematuria. Denies issues with voiding. Cr improved to 1.83 this morning. Problem List Medical Problems: (1) Acute renal failure Status: Acute (2) Hydronephrosis Status: Acute Review of Systems Constitutional: No fever, No chills Respiratory: No shortness of breath Cardiac: No chest pain Abdomen: No pain, No nausea, No vomiting Male : + hematuria Heme: No abnormal bleeding/bruising Objective Vital Signs Date Time Temp Pulse Resp B/P (MAP) Pulse Ox O2 Delivery O2 Flow Rate FiO2 05/21/17 08:07 96 Room Air 05/21/17 07:48 36.9 83 14 122/76 (91) 96 Room Air 05/21/17 07:40 Room Air 05/21/17 00:30 Room Air 05/20/17 23:19 36.6 88 14 155/75 (101) 95 Room Air 05/20/17 16:41 150/70 (96) 05/20/17 16:10 37.0 85 19 160/75 (103) 97 Room Air 05/20/17 16:00 Room Air 05/20/17 12:00 Room Air 05/20/17 11:41 36.6 83 18 138/71 (93) 97 Physical Exam General Appearance: no apparent distress Eyes: normal inspection ENT: hearing grossly normal Neck: no JVD Respiratory/Chest: no respiratory distress, no accessory muscle use Cardiovascular: no JVD Extremities: normal inspection Neurologic/Psychiatric: alert, normal mood/affect, oriented x 3 Skin: normal color Laboratory Results Last 24 Hours Test 05/21/17 05:54 White Blood Count 6.62 K/uL Red Blood Count 3.18 M/uL Hemoglobin 9.5 g/dL Hematocrit 28.4 % Mean Corpuscular Volume 89.3 fL Mean Corpuscular Hemoglobin 29.9 pg Mean Corpuscular Hemoglobin Concent 33.5 g/dl RDW Standard Deviation 50.3 fL RDW Coefficient of Variation 15.6 % Platelet Count 90 K/uL Mean Platelet Volume 8.9 fL Sodium Level 140 mmol/L Potassium Level 4.2 mmol/L Chloride Level 109 mmol/L Carbon Dioxide Level 25 mmol/L Anion Gap 6.0 mmol/L Blood Urea Nitrogen 32 mg/dl Creatinine 1.83 mg/dl Est Creatinine Clear Calc Drug Dose 35.4 ml/min Estimated GFR () 40.1 Estimated GFR (Non- 34.6 BUN/Creatinine Ratio 17.5 Random Glucose 91 mg/dl Calcium Level 8.3 mg/dl Assessment and Plan POD #2 s/p TURBT and right ureteral stent placement AFVSS. Pt doing well post-op. Cr continues to improve. Pt OK for d/c home from [facility]. Will prepare d/c instructions and d/c the pt home on 3 days of Cipro. tramadol, and Colace. Plan to have him f/u with Dr. Acevedo on May 25 at 11:30am. Discharge planning: home
--- NOTE | 2017-05-21 09:06 | Discharge Instructions ---
Discharge Instructions Date of Service May 21, 2017. Admission Reason for Admission: Bladder Cancer, Ureteral Obstruction Discharge Discharge Diagnosis / Problem: Bladder cancer, right hydronephrosis, acute renal failure Discharge Goals Goal(s): Decrease discomfort, Improve disease control, Therapeutic intervention Activity Recommendations Activity Limitations: as noted below Lifting Limitations: no more than 25 pounds (x 2 weeks. ) Exercise/Sports Limitations: rest today, gradually increase as tolerated ( Light activity x 1-2 weeks. You may notice more blood in your urine with increased activity. ) May Resume Sexual Activity: after two weeks Shower/Bathe: no limitations Driving or Machine Use: resume 1 day after discharge (Do not drive while taking narcotics. ) . Instructions / Follow-Up Instructions / Follow-Up 1. You have been prescribed the antibiotic Ciprofloxacin. Finish all as prescribed. 2. You are scheduled to follow-up with Dr. Acevedo on May 25 at 11: 30am. Please call [phone] if you need to reschedule for any reason. Current Hospital Diet Patient's current hospital diet: Regular Diet Discharge Diet Recommended Diet: Regular Diet Procedures Procedures Performed: Transurethral Resection of Bladder Tumor- Large, Right Ureteral Stent Placement ([id number]) Pending Studies Studies pending at discharge: yes List of pending studies: bladder tissue Medical Emergencies . Who to Call and When: Medical Emergencies: If at any time you feel your situation is an emergency, please call 911 immediately. . Non-Emergent Contact Non-Emergency issues call your: Urologist Call Non-Emergent contact if: temperature is above 101.5, your pain is not controlled, your pain is worsening, your pain is unusual for you, your pain is concerning you, you have any medication questions . . "Provider Documentation" section prepared by Lashonda Giraldo. . [place] Drug Monitoring Program Search Results: patient reviewed within database, no issues identified
[2017-05-21] MEDS ORDERED: TRAM-10 PO (09:08)
[2017-05-21] MEDS ORDERED: CIPR1TAB10 PO (09:08)
[2017-05-21] MEDS ORDERED: DOCU-94 PO (09:08)
--- NOTE | 2017-05-21 10:14 | Discharge Instructions ---
Discharge Instructions Date of Service May 21, 2017. Admission Reason for Admission: Bladder Cancer, Ureteral Obstruction Discharge Discharge Diagnosis / Problem: Acute renal failure, ureteral obstruction, bladder cancer Discharge Goals Goal(s): Decrease discomfort, Improve function, Diagnostic testing, Therapeutic intervention Activity Recommendations Activity Limitations: resume your previous activity (as per urology) . Instructions / Follow-Up Instructions / Follow-Up You were admitted to the hospital presenting with acute kidney failure and hematuria (blood in the urine). This was caused by ureteral obstruction from a bladder mass. You were evaluated by urology who performed a transurethral resection of bladder tumor (TURBT) and placed a stent in the right ureter. This has significantly improved your kidney function. You are now urinating on your own without a catheter, and the hematuria is improving. You are now medically stable for discharge. Medications: *Urology has started you on an antibiotic, ciprofloxacin, to take twice a day for 3 days. *Urology has also provided prescriptions for Colace, a stool softener, and tramadol, a pain reliever, to take as needed. Please take as directed. *You may continue your other home medications as prescribed. Follow up: *You have been scheduled to follow up with Dr. Acevedo of urology on May 25. *You will be scheduled to follow up with your primary care provider within a week. You have been provided with scripts for two lab tests to check your blood counts as well as your kidney function. You may take these scripts to [facility] to be drawn on Sunday or . These results will be sent to your primary care provider to review. Please seek medical attention if you experience fevers, chills, sweats, dizziness/lightheadedness, loss of consciousness, chest pain, shortness of breath, nausea, vomiting, numbness or tingling. Current Hospital Diet Patient's current hospital diet: Regular Diet Discharge Diet Recommended Diet: AHA Diet (Heart Healthy) Procedures Procedures Performed: Transurethral Resection of Bladder Tumor- Large, Right Ureteral Stent Placement ([id number]) Pending Studies Studies pending at discharge: yes List of pending studies: Bladder tumor pathology Medical Emergencies . Who to Call and When: Medical Emergencies: If at any time you feel your situation is an emergency, please call 911 immediately. . Non-Emergent Contact Non-Emergency issues call your: Primary Care Provider, Urologist Call Non-Emergent contact if: you have a fever, your pain is not controlled, your pain is worsening, your pain is unusual for you, your pain is concerning you, you have any medication questions . Past History Medical & Surgical History: (1) Acute renal failure (2) Hydronephrosis (3) Ureteral obstruction (4) Bladder cancer . "Provider Documentation" section prepared by Huyen Warren. . Horticultural Agent Recommendations Horticultural Agent Recommendations: Please see urology discharge instructions as well.
--- NOTE | 2017-05-21 10:31 | Discharge Summary ---
Discharge Summary Date of Service May 21, 2017. Discharge Summary Admission Date: May 18, 2017 at 16:00 Discharge Date: May 21, 2017 Discharge Disposition: Home Principal Diagnosis: Acute renal failure, ureteral obstruction, hydronephrosis , bladder cancer Problems/Secondary Diagnoses: High grade urothelial carcinoma, gross hematuria, BPH, HTN, HLD, COPD, CKD stage III Procedures: Operative Report Operative Date May 19, 2017. Pre-Operative Diagnosis Right hydronephrosis, Bladder Tumor, Hematuria Post-Operative Diagnosis Right hydronephrosis, Bladder Tumor, Hematuria Procedure(s) Performed Transurethral Resection of Bladder Tumor- Large, Right Ureteral Stent Placement ([id number]) Surgeon Dr. Duncan Allopathic Doctor Surgeon(s) NONE Estimated Blood Loss 15 ml Findings See dictation Specimens Pathology A: Bladder Tumor Chips for Pathology Drains Rogers Anesthesia Type General Complication(s) none Disposition yes Recovery Room / PACU Indications Renal failure; hematuria; bladder tumor Consultations: Urology Medication Reconciliation New Medications: Ciprofloxacin Hcl (Cipro) 500 Mg Tab 250 MG PO BID, #6 TAB Docusate Sodium (Colace) 100 Mg Cap 1 CAP PO BID PRN for Constipation for 15 Days, #30 CAP Tramadol (Ultram) 50 Mg Tab 50 MG PO Q4H PRN for Pain, #15 TAB Continued Medications: Ascorbic Acid (Vitamin C) 1,000 Mg Tab 1000 MG PO QAM Ferrous Sulfate (Iron) Unknown Strength Tab 1 TAB PO LUNCH Finasteride (Proscar) 5 Mg Tab 5 MG PO QAM, TAB Metoprolol Succinate (Toprol Xl) 25 Mg Tab 12.5 MG PO QAM, #30 TAB Multivitamin (Multivitamin) Tab 1 TAB PO NOON, TAB Tamsulosin Hcl (Flomax) 0.4 Mg Cap 0.4 MG PO QPM, CAP Discharge Exam Patient reports feeling well. He did have a bit of a non-productive cough last night but this is now resolved. He still complains of hematuria, but denies any clots. He does complain of some mild dysuria. He denies any abdominal pain. The patient denies fevers, chills, sweats, chest pain, palpitations, claudication, wheezing, shortness of breath, nausea, vomiting, abdominal pain, urinary retention, paralysis, weakness, numbness and tingling. Constitutional: No fever, No chills, No sweats Eyes: No worsening of vision, No eye pain, No diplopia ENT: No hearing loss, No nasal symptoms, No trouble swallowing Respiratory: No cough, No wheezing, No shortness of breath Cardiovascular: No chest pain, No claudication, No palpitations Abdomen: No pain, No nausea, No vomiting Musculoskeletal: No joint pain, No muscle pain, No swelling Genitourinary - Male: +Dysuria, hematuria w/o clots. No urinary retention Neurologic: No paralysis, No weakness, No numbness/tingling Integumentary: No rash, No itch, No color change General appearance: Well-developed, well-nourished, no apparent distress Head: Normocephalic, atraumatic Eyes: Normal inspection, PERRL, EOMI ENT: Normal ENT inspection, hearing grossly normal, pharynx normal Neck: Supple, no JVD, trachea midline Respiratory/Chest: Lungs clear to auscultation, normal breath sounds, no respiratory distress Cardiovascular: Regular rate & rhythm, no gallop, no murmur Abdomen/GI: +Very mild suprapubic tenderness to palpation. Normal bowel sounds , soft : +Rogers removed, voiding on own, hematuria improved Extremities/Musculoskeletal: Normal inspection, no calf tenderness, no pedal edema Neurological/Psych: Alert, normal mood/affect, oriented x 3 Skin: Normal color, warm/dry, no rash Hospital Course 77 y/o male with a history of high grade urothelial carcinoma, gross hematuria, BPH, HTN, HLD, COPD, and CKD stage III who presents to the hospital with worsening renal function and right hydronephrosis due to bladder mass. CT abdomen/pelvis shows bladder mass compression causing right hydronephrosis and hydroureter. 34 mm infrarenal AAA also noted. Right hydronephrosis due to bladder mass, bladder cancer, gross hematuria-- improving -Admit to med/surg. No acute events overnight on tele, patient in SR with HR 70s-90s. Will transfer back to med/surg -Urology consulted, appreciate recs: Stable for discharge. Scheduled to f/u with Dr. Acevedo 05/25. Will d/c with Cipro x 3 days. -Hgb remains stable at 9.5. Will repeat CBC as outpt in 2-3 days -Continue daily iron supplement -Urine culture negative -D/C with Cipro x 3 days, Colace prn constipation, tramadol prn pain per urology Acute renal failure on CKD stage III--improving -Baseline creatinine 1.2-1.4 -Creatinine 1.83 on 05/21, down from 1.93 -Repeat basic metabolic panel in 2-3 days as outpt Elevated BP, suprapubic pain postop--resolving -BP has remained stable since leaving PACU after procedure, transfer back to med /surg Pancytopenia--stable -Pt did have recent immunotherapy in April -PLT count 90 on 05/21, up from 72. Repeat CBC as outpt as above to monitor -Continue to monitor BPH -Continue Proscar 5 mg PO qd and Flomax 0.4 mg PO hs HTN--now stable -Continue Toprol XL 12.5 mg PO qd COPD--stable, no acute exacerbation. Not currently medicated for this DVT prophylaxis -Hold chemical ppx due to gross hematuria -SCDs Code Status -Level I, FULL RESUSCITATION STATUS Dispo -From home -Stable for discharge, will f/u with PCP and urology -CBC and BMP in 2-3 days as outpatient, forward results to PCP Total Time Spent: Greater than 30 minutes This includes examination of the patient, discharge planning, medication reconciliation, and communication with other providers. Discharge Instructions Please refer to the electronic Patient Visit Report (Discharge Instructions) for additional information. Additional Copies To Salvador Liu D.O.
[2017-05-21 11:06] VITALS: BP 122/76; PULSE 83; TEMP 36.9; O2SAT 96
== END 2017-05-21 11:39 | disposition home or self-care (01) | DRG 669 ==
LOC: C.EDB 13:40 → C.MSN 16:00 → ENRESERV 16:59 → C.2T 05-19 15:37 → ENRESERV 05-20 15:22 → C.MSN 05-20 16:08
PROVIDERS: ADMIT Internal Medicine; ATTEND Family Medicine
PROC: 0T768DZ Dilation of Right Ureter with Intraluminal Device, Via Natural or Artificial Opening Endoscopic (ICD-10-PCS; principal; 2017-05-19 10:30)
PROC: 0TBB8ZX Excision of Bladder, Via Natural or Artificial Opening Endoscopic, Diagnostic (ICD-10-PCS; principal; 2017-05-19 10:30)
DX: N13.30 Unspecified hydronephrosis (principal); D61.818 Other pancytopenia; I10 Essential (primary) hypertension; C67.9 Malignant neoplasm of bladder, unspecified; Z87.891 Personal history of nicotine dependence; N13.5 Crossing vessel and stricture of ureter without hydronephrosis; N17.9 Acute kidney failure, unspecified; N18.3 Chronic kidney disease, stage 3 (moderate); N40.0 Benign prostatic hyperplasia without lower urinary tract symptoms; J44.9 Chronic obstructive pulmonary disease, unspecified

== ENCOUNTER 2017-06-18 09:06 | Day surgery (SDC) | payer OTHER ==
[2017-06-14 09:55] VITALS: BMI 23.0
[~2017-06-18] VITALS: Ht 177.8 cm; Wt 74.5 kg
[~2017-06-18 09:06] MED LIST changes: +ATOR-22 PO; +CEFAZOLIN 2000MG IV PUSH 15 ML IV SCH; +FERR1TAB23 PO; +LACTATED RINGER'S 1000ML 1,000 ML IV SCH; +ONDA4TAB46 PO; +PROC1TAB5 PO
[2017-06-18 09:40] VITALS: BP 137/70; PULSE 63; TEMP 36.7; O2SAT 98; Ht 177.8 cm; Wt 74.5 kg
[2017-06-18 10:08] LABS: HEMATOCRIT 32.8 % (42-52); HEMOGLOBIN 10.8 g/dL (14.0-18.0); MEAN CELL VOLUME 89.9 fL (80-100); MEAN CORPUSCULAR HEMOGLOBIN 29.6 pg (25-34); RED CELL DISTRIBUTION WIDTH CV 15.3 % (11.5-14.5); RED CELL DISTRIBUTION WIDTH SD 50.3 fL (36.4-46.3); WHITE BLOOD COUNT 3.06 K/uL (4.8-10.8)
[2017-06-18 10:30] LABS: ALBUMIN 3.1 gm/dl (3.4-5.0); CALCIUM 8.5 mg/dl (8.5-10.1); CREATININE 1.91 mg/dl (0.60-1.40); POTASSIUM 4.5 mmol/L (3.5-5.1)
[2017-06-18 10:32] LABS: TOTAL PROTEIN 6.8 gm/dl (6.4-8.2)
[2017-06-18] MEDS ORDERED: LIDOCAINE HCL 2% 2 ML VIAL (20MG/ML) ONE (10:35)
[2017-06-18] MEDS ORDERED: FENTANYL CITRATE INJ 50 MCG/1 ML 2 ML VIAL ONE (10:35)
[2017-06-18] MEDS ORDERED: PROPOFOL IV EMULSION 10 MG/ML 20 ML VIAL IV ONE ×2 (10:35→14:06)
[2017-06-18 10:38] LABS: MEAN CORPUSCULAR HGB CONC 32.9 g/dl (32-36); MEAN PLATELET VOLUME 8.7 fL (7.4-10.4); PLATELET COUNT 74 K/uL (130-400)
[2017-06-18 10:40] LABS: EOS ABS # 0.06 K/uL (0-0.5); LYMPH % 23.9 %; LYMPH ABS # 0.73 K/uL (1.2-3.4); MONO % 6.5 %; NEUT % 67.6 %; NEUT ABS # 2.07 K/uL (1.4-6.5)
[2017-06-18] MEDS ORDERED: ATROPINE SULFATE 0.1 MG/ML 5ML SYR IV PRN (12:15)
[2017-06-18] MEDS ORDERED: EpHEDrine SULFATE INJ 50 MG/ML AMP IV PRN (12:15)
[2017-06-18] MEDS ORDERED: HYDR-5688 PO ×2 (12:31→12:34)
--- NOTE | 2017-06-18 12:33 | Discharge Instructions ---
Discharge Instructions Date of Service Jun 18, 2017. Visit Reason for Visit: Bladder Cancer Discharge Discharge Diagnosis / Problem: A-port Discharge Goals Goal(s): Decrease discomfort Activity Recommendations Activity Limitations: as noted below Shower/Bathe: keep incision dry (for 2 days) Anesthesia . Post Anesthesia Instructions: If you have had General Anesthesia or IV Sedation: * Do not drive today. * Resume driving when surgeon permits. * Do not make important decisions or sign legal documents today. * Call surgeon for: 1. Temperature elevations greater than 101 degrees F. 2. Uncontrollable pain. 3. Excessive bleeding. 4. Persistent nausea and vomiting. 5. Medication intolerance (nausea, vomiting or rash). * For nausea and vomiting use only clear liquids such as: tea, soda, bouillon until nausea subsides, then gradually increase diet as tolerated. * If you have any concerns or questions, call your surgeon's office. If physician is unavailable and it is an emergency, call 911 or go to the nearest emergency room. . Instructions / Follow-Up Instructions / Follow-Up Dr. Mcelroy's office in 2 weeks for removal of sutures, call [phone] for any questions or to schedule an appt Diet Recommendations Recommended Home Diet: no limitations Pending Studies Studies pending at discharge: no Medical Emergencies . Who to Call and When: Medical Emergencies: If at any time you feel your situation is an emergency, please call 911 immediately. . Non-Emergent Contact Non-Emergency issues call your: Surgeon Call Non-Emergent contact if: you have a fever, temperature is above 101.5, your pain is not controlled, wound has increased redness, you have any medication questions . . "Provider Documentation" section prepared by Oscar Sandoval. .
[2017-06-18] MEDS ORDERED: CEFAZOLIN SOD 1 GM VIAL ONE (13:17)
[2017-06-18] MEDS ORDERED: LIDOCAINE HCL 1% 20 ML VIAL ONE (13:17)
[2017-06-18] MEDS ORDERED: HEPARIN SOD (PORCINE) 1000 UNIT/ML 10 ML VIAL ONE (13:17)
[2017-06-18] MEDS ORDERED: THROMBIN FOR SOLN 20000 UNIT KIT ONE (13:17)
[2017-06-18] MEDS ORDERED: LACTATED RINGER'S 1000ML 1,000 ML IV SCH ×2 (14:05→14:11)
[2017-06-18] MEDS ORDERED: HYDROCODONE/ACETAMIN 5/325MG TAB PO PRN ×4 (14:15→15:00)
[2017-06-18] MEDS ORDERED: ONDANSETRON INJ 2 MG/ML 2 ML VIAL IV PRN ×3 (14:15→15:00)
[2017-06-18] MEDS ORDERED: MoRPHine SULFATE 2 MG/ML CARP IV PRN ×2 (14:15)
--- NOTE | 2017-06-18 14:37 | [facility] Operative Report ---
Operative Report Operative Date Jun 18, 2017. Pre-Operative Diagnosis Bladder cancer Post-Operative Diagnosis Bladder cancer Procedure(s) Performed Insertion of A-Port, Left Internal Jugular Surgeon Dr. Praveen Mcelroy Automation Developer Surgeon(s) None Estimated Blood Loss 10 mL Findings placed via Lt IJ vein Specimens No pathology specimens per surgeon Drains None Anesthesia Type MAC Complication(s) none Disposition Recovery Room / PACU I attest to the content of the Intraoperative Record and any orders documented therein. Any exceptions are noted below.
--- NOTE | 2017-06-18 15:03 | DIAGNOSTIC IMAGING REPORT ---
CHEST ONE VIEW PORTABLE CLINICAL HISTORY: 77 years-old Male presenting with port. TECHNIQUE: Portable upright AP view of the chest was obtained. COMPARISON: 05/18/2017. FINDINGS: Interval placement of a left internal jugular Mediport, which terminates in the lower SVC. Atherosclerosis of the aortic arch. Cardiac silhouette normal in size. No focal opacity. No large effusion or pneumothorax. Degenerative changes of the thoracic spine. IMPRESSION: 1. Interval placement of a left IJ Mediport, which is appropriately positioned. No pneumothorax. Electronically signed by: Chester Upton M.D. 06/18/2017 3:02 PM Dictated Date/Time: 06/18/2017 3:01 PM
[2017-06-18 15:05] VITALS: BP 158/86; PULSE 99; TEMP 36.8; O2SAT 98
--- NOTE | 2017-06-18 15:06 | Anesthesiology Progress Note ---
Anesthesia Post Op Note Date & Time Jun 18, 2017 at 15:06 Vital Signs Pain Intensity: 0 Vital Signs Past 12 Hours Date Time Temp Pulse Resp B/P (MAP) Pulse Ox O2 Delivery O2 Flow Rate FiO2 06/18/17 15:00 36.4 59 13 150/81 97 Room Air 06/18/17 14:50 57 15 160/83 100 Oxymask 6 06/18/17 14:43 36.0 59 12 140/74 100 Oxymask 10 06/18/17 09:40 36.7 63 20 137/70 (92) 98 Room Air Notes Mental Status: alert / awake / arousable, participated in evaluation Pt Amnestic to Procedure: Yes Nausea / Vomiting: adequately controlled Pain: adequately controlled Airway Patency, RR, SpO2: stable & adequate BP & HR: stable & adequate Hydration State: stable & adequate Anesthetic Complications: no major complications apparent
[2017-06-18 15:25] VITALS: BP 161/83; PULSE 72; O2SAT 98
--- NOTE | 2017-06-18 15:36 | OPERATIVE REPORT ---
DATE OF OPERATION: 06/18/2017 This is a procedure using fluoroscopy. During the port placement on 06/18/2017, I was using fluoroscopy to place the catheter. I attest to the content of the Intraoperative Record and any orders documented therein. Any exception s are noted below.
--- NOTE | 2017-06-18 15:44 | OPERATIVE REPORT ---
DATE OF OPERATION: 06/18/2017 NAME OF OPERATION: Port placement. PREOPERATIVE DIAGNOSIS: Bladder cancer. POSTOPERATIVE DIAGNOSIS: Bladder cancer. STAFF SURGEON: Dr. Mcelroy. ANESTHESIA: 1% plain lidocaine with sedation. PROCEDURE: The patient was brought in the operating room and placed on the operating table in supine position. His neck and chest were prepped and draped in usual fashion. Using 1% plain lidocaine, skin and subcutaneous tissue over the left deltopectoral groove were anesthetized. Incision made, carrying dissection down. I could not identify any cephalic vein at this point. Patient was placed in Trendelenburg position. Using a puncture technique, I attempted to localize the left subclavian vein. I could not localize the vein. At this point, I attempted to puncture the left internal jugular vein which I was unable to do. I obtained the ultrasound machine and under ultrasound, I was able to puncture the left internal jugular vein. It turns out that with his breathing, it was collapsing completely but intermittently. At this point, I was able to pass the wire under fluoroscopy into the superior vena cava. A small incision was made around the wire. The catheter was brought from the chest wound up to the neck wound and then a dilator and introducer passed over the wire. The dilator and wire removed. The catheter was passed through the introducer. The introducer removed. Catheter positioned appropriately. It was then attached to the port. Port was placed into the pocket which was fashioned in the chest wall and secured to the muscle using 3-0 Prolene suture. The port was aspirated and flushed with heparinized solution. At this point, the incisions were closed by reapproximating the subcutaneous tissue using 2-0 chromic suture and then the skin using 4-0 nylon suture. The patient was transferred to recovery room in stable condition. I attest to the content of the Intraoperative Record and any orders documented therein. Any exception s are noted below.
[2017-06-18 15:45] VITALS: BP 152/80; PULSE 67; TEMP 36.5; O2SAT 99
== END 2017-06-18 16:02 | disposition home or self-care (01) ==
LOC: C.ACU 09:06
PROVIDERS: ATTEND Surgery
DX: C67.9 Malignant neoplasm of bladder, unspecified (principal); I71.4 Abdominal aortic aneurysm, without rupture; G47.33 Obstructive sleep apnea (adult) (pediatric); E78.5 Hyperlipidemia, unspecified; K21.9 Gastro-esophageal reflux disease without esophagitis; N40.1 Benign prostatic hyperplasia with lower urinary tract symptoms; J44.9 Chronic obstructive pulmonary disease, unspecified; I10 Essential (primary) hypertension; D69.6 Thrombocytopenia, unspecified; I49.3 Ventricular premature depolarization; Z90.89 Acquired absence of other organs; Z87.81 Personal history of (healed) traumatic fracture; Z87.440 Personal history of urinary (tract) infections; Z87.891 Personal history of nicotine dependence; Z85.820 Personal history of malignant melanoma of skin; Z87.442 Personal history of urinary calculi

== ENCOUNTER → 2017-10-09 | Outpatient (CLI) | payer OTHER ==
[~2017-10-09] MED LIST changes: -CEFAZOLIN 2000MG IV PUSH 15 ML IV SCH; +CIPR-255 PO; -FERR1TAB23 PO; -LACTATED RINGER'S 1000ML 1,000 ML IV SCH; +PROC10TA PO; -PROC1TAB5 PO
[2017-10-09 08:56] LABS: HEMOGLOBIN 9.9 g/dL (14.0-18.0); MEAN CELL VOLUME 93.5 fL (80-100); MEAN CORPUSCULAR HEMOGLOBIN 30.8 pg (25-34); RED CELL DISTRIBUTION WIDTH SD 69.2 fL (36.4-46.3); WHITE BLOOD COUNT 4.28 K/uL (4.8-10.8)
[2017-10-09 09:01] LABS: MEAN PLATELET VOLUME 9.2 fL (7.4-10.4); PLATELET COUNT 81 K/uL (130-400)
[2017-10-09 09:16] LABS: ALBUMIN 3.2 gm/dl (3.4-5.0); ALT/SGPT 41 U/L (12-78); AST/SGOT 37 U/L (15-37); BLOOD UREA NITROGEN 32 mg/dl (7-18); CALCIUM 8.4 mg/dl (8.5-10.1); CARBON DIOXIDE 25 mmol/L (21-32); CREATININE 1.52 mg/dl (0.60-1.40); GLUCOSE 95 mg/dl (70-99); POTASSIUM 4.3 mmol/L (3.5-5.1); SODIUM 140 mmol/L (136-145)
[2017-10-09 09:20] LABS: ALKALINE PHOSPHATASE 162 U/L (45-117); TOTAL PROTEIN 6.6 gm/dl (6.4-8.2)
[2017-10-09 09:32] LABS: BASO % 0.2 %; BASO ABS # 0.01 K/uL (0-0.2); EOS % 1.6 %; EOS ABS # 0.07 K/uL (0-0.5); IG# 0.01 K/uL (0.00-0.02); LYMPH % 18.9 %; LYMPH ABS # 0.81 K/uL (1.2-3.4); MONO % 19.6 %; MONO ABS # 0.84 K/uL (0.11-0.59); NEUT % 59.5 %; NEUT ABS # 2.54 K/uL (1.4-6.5)
== END | disposition home or self-care (01) ==
LOC: C.LABSPEC 08:38
PROVIDERS: ATTEND Internal Medicine Hematology & Oncology
DX: C67.9 Malignant neoplasm of bladder, unspecified (principal)

== ENCOUNTER 2018-11-04 10:20 | Inpatient (IN) ==
[2018-11-04 10:59] LABS: Hematocrit (blood only) 37.2 % (42-52); Hemoglobin 12.9 g/dL (14.0-18.0); Mean Corpuscular Hemoglobin 32.2 pg (25-34); Mean Corpuscular Hgb Conc 34.7 g/dL (32-36); Mean Corpuscular Volume 92.8 fL (80-100); RDW Standard Deviation 47.2 fL (36.4-46.3); Red Blood Count 4.01 M/uL (4.7-6.1)
[2018-11-04] MEDS: SODIUM CHLORIDE 0.9% 1000ML 1,000 ML IV SCH ×2 (11:01→19:42)
[2018-11-04 11:10] LABS: Mean Platelet Volume 9.2 fL (7.4-10.4); Platelet Count 62 K/uL (130-400)
[2018-11-04 11:14] LABS: Alanine Aminotransferase 35 U/L (12-78); Albumin Level 4.5 gm/dl (3.4-5.0); Aspartate Aminotransferase 32 U/L (15-37); BUN Creatinine Ratio 15.6 (10-20); Blood Urea Nitrogen 27 mg/dl (7-18); Calcium 9.6 mg/dl (8.5-10.1); Carbon Dioxide 25 mmol/L (21-32); Chloride 105 mmol/L (98-107); Est GFR (Non-African American) 36.2; Glucose 103 mg/dl (70-99); Lipase 230 U/L (73-393); Sodium 140 mmol/L (136-145)
[2018-11-04 11:19] LABS: Albumin Globulin Ratio 1.2 (0.9-2); Alkaline Phosphatase 210 U/L (45-117); Bilirubin,Total 1.3 mg/dl (0.2-1); Globulin 3.8 gm/dl (2.5-4.0); Total Protein 8.3 gm/dl (6.4-8.2); Troponin I < 0.015 ng/ml (0-0.045)
[2018-11-04 11:22] LABS: Acanthocytes 1+; Echinocytes 1+; Eosinophils # (auto) 0.05 K/uL (0-0.5); Eosinophils % (auto) 0.9 %; Immature Granulocytes # (auto) 0.02 K/uL (0.00-0.02); Immature Granulocytes % (auto) 0.4 %; Lymphocytes # (auto) 0.54 K/uL (1.2-3.4); Lymphocytes % (auto) 9.5 %; Monocytes # (auto) 0.47 K/uL (0.11-0.59); Monocytes % (auto) 8.2 %; Neutrophils # (auto) 4.62 K/uL (1.4-6.5)
--- NOTE | 2018-11-04 11:43 | XRay Report ---
XR chest 2V routine CLINICAL HISTORY: 78 years-old Male presenting with esophageal obstruction. TECHNIQUE: PA and lateral views of the chest were obtained. COMPARISON: 07/15/2018. FINDINGS: Left internal jugular Mediport terminates in the lower SVC. Atherosclerosis of the aortic arch. Cardi ac silhouette normal in size. Heterogeneity lung parenchyma. Lungs are mildly hyperinflated. Reticula r opacities in the peripheral distribution at the lung bases. No new focal opacity. No pleural effusi on or pneumothorax. Degenerative changes of the thoracic spine. Upper abdomen normal. IMPRESSION: 1. Findings suggest emphysema and bibasilar scarring/fibrosis. No focal infiltrate to suggest pneumo lashanda. Electronically signed by: Chester Upton M.D. 11/04/2018 11:41 AM
--- NOTE | 2018-11-04 16:07 | Emergency Department Note ---
Entered by Praveen Armando acting as a scribe for Marylu Alvarez MD History of Present Illness General Chief complaint: GI Assessment Stated complaint: GERD, ESOPHAGUS PROBLEMS, CAN'T KEEP ANYTHING DOWN Source: patient and family History of Present Illness Provider complaint: GI assessment Onset (ago): day(s) 1 Location: neck and abdomen Radiation: non-radiation Pain Consistency: + constant Maximum Pain Intensity: 0 Relieved By: + none Exacerbated By: + none Associated symptoms: + nausea/vomiting The patient is a 78 year old male who presents to the Emergency Room for a GI assessment after not being able to swallow or keep anything down since yes terday. The patient states that it feels as though something is constantly stuck in his throat causing him to spit up mucous. He notes that last night he was unable to eat dinner and this morning when he tried to drink a Boost he vomited it up immediately. Per the patient's , the patient had a CT scan done a month ago that showed thickening of the esophagus. The patient admits to never having an upper endoscopy done. The patient sees Dr. Painting for his prostate cancer that is currently in remission after chemotherapy and radiation. After the patient's last consultation with Dr. Painting patient began taking pantoprazole. Patient believes he has a pending upper endoscopy scheduled but he is not sure where. Home Medications Home Medications Medication Instructions Recorded Confirmed Type acetaminophen [Tylenol] 325 mg PO Q6H PRN 11/28/17 11/04/18 History ascorbic acid (vitamin C) 1,000 mg PO QDL 11/28/17 11/04/18 History atorvastatin 20 mg PO HS 11/28/17 11/04/18 History metoprolol succinate 12.5 mg PO QAM 11/28/17 11/04/18 History food supplement, lactose-reduced 1 ea PO HS ml 06/20/18 11/04/18 History 0.06 gram-1 kcal/mL oral liquid bicalutamide 50 mg tablet 50 mg PO DAILY tab 10/18/18 11/04/18 History calcium carbonate 600 mg calcium 600 mg PO DAILY tab 10/18/18 11/04/18 History (1,500 mg) tablet cholecalciferol (vitamin D3) 2,000 2,000 units PO DAILY 10/18/18 11/04/18 History unit capsule pantoprazole 40 mg tablet,delayed 40 mg PO QPM tab 10/24/18 11/04/18 History release Allergies Allergy/AdvReac Type Severity Reaction Status Date / Time Iodinated Contrast- Oral and Allergy Mild Rash Verified 11/04/18 11:41 IV Dye Past Med/Surg History Medical History Hypertension Hyperlipidemia Anemia HX WHILE ON CHEMO 05/2017 - Needed platelet and blood transfusions. Hx of reduction of closed fracture R LOWER LEG Cancer CHEMOTHERAPY MAY-OCTOBER 2017 THRU [facility] FOR BLADDER CANCER AAA (abdominal aortic aneurysm) (Acute) Acquired thrombocytopenia (Acute) BPH (benign prostatic hyperplasia) (Acute) Bladder cancer (Acute) Hydronephrosis (Acute) Skin cancer (Acute) Right hand , nose and posterior neck Surgical History History of cystoscopy X 4- 2 STENT PLACEMENT R URETER REMAINS IN PLACE S/P T&A (status post tonsillectomy and adenoidectomy) (Acute) as a child S/P radical cystoprostatectomy (Acute) surgery 12-18-2017 / Status post chemotherapy (Acute) chemo from May 2017 to October 2017 Family History Father , at age 78 Diverticulitis Ruptured Mother , age 83 Old age Son No problems noted. Son No problems noted. Daughter No problems noted. 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 and A total of 10 systems reviewed and were otherwise negative Physical Exam Vital Signs Vital Signs - 24 hr 11/04/18 10:34 11/04/18 11:06 11/04/18 11:10 Temperature 37.0 C Temperature Source Oral Sepsis Recent Fever Within 48 Hours No Sepsis Action Taken by Nursing No Action Required Pulse Rate 72 66 64 Pulse Rate [Left] Pulse Rate from SpO2 Sensor Respiratory Rate 20 14 18 Respiratory Effort / Characteristics Non-Labored Blood Pressure 131/77 Blood Pressure [Left Arm] Blood Pressure Mean 95 Blood Pressure Mean [Left Arm] Pulse Oximetry 99 Oxygen Delivery Method Room Air 11/04/18 11:31 11/04/18 11:40 11/04/18 11:46 Temperature Temperature Source Sepsis Recent Fever Within 48 Hours Sepsis Action Taken by Nursing Pulse Rate Pulse Rate [Left] Pulse Rate from SpO2 Sensor 64 Respiratory Rate 16 19 21 Respiratory Effort / Characteristics Blood Pressure 138/87 Blood Pressure [Left Arm] Blood Pressure Mean 104 Blood Pressure Mean [Left Arm] Pulse Oximetry 100 Oxygen Delivery Method 11/04/18 11:49 11/04/18 11:50 11/04/18 12:00 Temperature Temperature Source Sepsis Recent Fever Within 48 Hours Sepsis Action Taken by Nursing Pulse Rate 62 61 Pulse Rate [Left] 63 Pulse Rate from SpO2 Sensor 62 61 Respiratory Rate 20 15 18 Respiratory Effort / Characteristics Blood Pressure 122/76 Blood Pressure [Left Arm] 138/87 Blood Pressure Mean 91 Blood Pressure Mean [Left Arm] 104 Pulse Oximetry 100 100 100 Oxygen Delivery Method Room Air 11/04/18 12:10 11/04/18 12:20 11/04/18 12:30 Temperature Temperature Source Sepsis Recent Fever Within 48 Hours Sepsis Action Taken by Nursing Pulse Rate 61 64 60 Pulse Rate [Left] Pulse Rate from SpO2 Sensor 61 64 60 Respiratory Rate 18 15 14 Respiratory Effort / Characteristics Blood Pressure 132/72 Blood Pressure [Left Arm] Blood Pressure Mean 92 Blood Pressure Mean [Left Arm] Pulse Oximetry 99 100 99 Oxygen Delivery Method 11/04/18 12:40 11/04/18 12:50 11/04/18 13:00 Temperature Temperature Source Sepsis Recent Fever Within 48 Hours Sepsis Action Taken by Nursing Pulse Rate 62 59 L 63 Pulse Rate [Left] Pulse Rate from SpO2 Sensor 61 59 L 63 Respiratory Rate 16 17 22 Respiratory Effort / Characteristics Blood Pressure 138/88 Blood Pressure [Left Arm] Blood Pressure Mean 104 Blood Pressure Mean [Left Arm] Pulse Oximetry 100 100 100 Oxygen Delivery Method 11/04/18 13:10 11/04/18 13:20 11/04/18 13:30 Temperature Temperature Source Sepsis Recent Fever Within 48 Hours Sepsis Action Taken by Nursing Pulse Rate 60 63 63 Pulse Rate [Left] Pulse Rate from SpO2 Sensor 61 63 62 Respiratory Rate 22 20 13 Respiratory Effort / Characteristics Blood Pressure 145/81 H Blood Pressure [Left Arm] Blood Pressure Mean 102 Blood Pressure Mean [Left Arm] Pulse Oximetry 100 100 100 Oxygen Delivery Method 11/04/18 13:40 11/04/18 13:50 11/04/18 14:00 Temperature Temperature Source Sepsis Recent Fever Within 48 Hours Sepsis Action Taken by Nursing Pulse Rate 63 70 63 Pulse Rate [Left] Pulse Rate from SpO2 Sensor 63 70 63 Respiratory Rate 14 17 18 Respiratory Effort / Characteristics Blood Pressure 147/79 H Blood Pressure [Left Arm] Blood Pressure Mean 101 Blood Pressure Mean [Left Arm] Pulse Oximetry 100 100 99 Oxygen Delivery Method 11/04/18 14:10 11/04/18 14:20 11/04/18 14:30 Temperature Temperature Source Sepsis Recent Fever Within 48 Hours Sepsis Action Taken by Nursing Pulse Rate 63 66 64 Pulse Rate [Left] Pulse Rate from SpO2 Sensor 63 64 64 Respiratory Rate 19 19 21 Respiratory Effort / Characteristics Blood Pressure 142/91 H Blood Pressure [Left Arm] Blood Pressure Mean 108 Blood Pressure Mean [Left Arm] Pulse Oximetry 100 100 100 Oxygen Delivery Method 11/04/18 14:40 11/04/18 14:50 11/04/18 15:00 Temperature Temperature Source Sepsis Recent Fever Within 48 Hours Sepsis Action Taken by Nursing Pulse Rate 64 66 64 Pulse Rate [Left] Pulse Rate from SpO2 Sensor 64 66 65 Respiratory Rate 15 14 15 Respiratory Effort / Characteristics Blood Pressure 146/85 H Blood Pressure [Left Arm] Blood Pressure Mean 105 Blood Pressure Mean [Left Arm] Pulse Oximetry 100 100 100 Oxygen Delivery Method Room Air Room Air 11/04/18 15:02 11/04/18 15:10 11/04/18 15:20 Temperature Temperature Source Sepsis Recent Fever Within 48 Hours Sepsis Action Taken by Nursing Pulse Rate 66 64 Pulse Rate [Left] Pulse Rate from SpO2 Sensor 66 64 Respiratory Rate 26 H 28 H Respiratory Effort / Characteristics Blood Pressure Blood Pressure [Left Arm] Blood Pressure Mean Blood Pressure Mean [Left Arm] Pulse Oximetry 100 100 Oxygen Delivery Method Room Air Room Air Room Air 11/04/18 15:30 11/04/18 15:40 11/04/18 15:50 Temperature Temperature Source Sepsis Recent Fever Within 48 Hours Sepsis Action Taken by Nursing Pulse Rate 63 64 64 Pulse Rate [Left] Pulse Rate from SpO2 Sensor 64 64 64 Respiratory Rate 23 19 17 Respiratory Effort / Characteristics Blood Pressure 142/82 H Blood Pressure [Left Arm] Blood Pressure Mean 102 Blood Pressure Mean [Left Arm] Pulse Oximetry 100 100 100 Oxygen Delivery Method Room Air Room Air Room Air Vital signs reviewed. General: Elderly, chronically ill-appearing 78 year old male, in no significant distress. HEENT: No scleral icterus, PERRLA, neck supple. Atraumatic. Cardiovascular: Regular rate and rhythm, no extra sounds. Pulmonary: Clear to auscultation bilaterally, normal work of breathing. Abdomen: Soft, nontender, nondistended, positive bowel sounds. Right sided urostomy noted. Musculoskeletal: Atraumatic, no peripheral edema. Neurologic: Patient awake alert and oriented x 3. Skin: Warm, dry, no rash Course 1038: Past medical records reviewed. The patient was evaluated in room A09B, and a complete history and physical examination were performed. 1328: I reevaluated and updated the patient with all results obtained thus far. 1408: I spoke to Dr. Garima Soto about the patient's case and he recommended admitting the patient for further treatment. 1428: I spoke to Dr. Castro [facility] Hospitalist about the patient's case. She will be accepting the patient for further evaluation. Consultations Consultation #1: I spoke to Dr. Garima Soto about the patient's case and he recommended admitting the patient for further treatment. Time: 14:08 Consultation #2: I spoke to Dr. Castro [facility] Hospitalist about the patient's c ase. She will be accepting the patient for further evaluation. Time: 14:28 Administered Medications Dextrose/Sodium Chloride (D5w And Nss) 1,000 mls @ 100 mls/hr IV .Q10H HERRERA Stop: 12/04/18 17:59 Last Admin: 11/05/18 13:47 Dose: 100 mls/hr Documented by: [id number] Infusion: 11/05/18 13:47 Dose: 100 mls/hr Documented by: [id number] Admin: 11/05/18 04:39 Dose: 100 mls/hr Documented by: [id number] Infusion: 11/05/18 04:39 Dose: 100 mls/hr Documented by: [id number] Admin: 11/04/18 18:49 Dose: 100 mls/hr Documented by: [id number] Famotidine 20 mg/ Syringe 5 mls @ 2.5 mls/min IV DAILY [facility] Stop: 12/04/18 08:59 Last Admin: 11/05/18 09:25 Dose: 2.5 mls/min Documented by: [id number] Admin: 11/04/18 19:05 Dose: 2.5 mls/min Documented by: [id number] Discontinued Medications Sodium Chloride (Nss 1000ml) 1,000 mls @ 150 mls/hr IV .Q6H40M HERRERA Stop: 12/04/18 10:59 Last Admin: 11/04/18 19:42 Dose: Not Given Documented by: [id number] Infusion: 11/04/18 18:55 Dose: 0 mls/hr Documented by: [id number] Admin: 11/04/18 11:01 Dose: 150 mls/hr Documented by: [id number] Medical Decision Making Differential Diagnosis Differential: Gastroenteritis, Food Borne, Esophageal Perforation, , Electrolyte Abnormality, Dehydration, Intraabdominal Infection, UTI/Pyelonephritis, Bowel Obstruction, Biliary Pathology, Esophageal foreign body, Esophageal stricture amongst other pathology entertained. Medical Records Attestation: I reviewed the patient's medical records. Home Medications Current Medication List: was personally reviewed by me Laboratory Data Attestation: I reviewed the patient's lab results. Result diagrams: 11/05/18 09:01 11/05/18 07:05 Lab Results 11/04/18 11/04/18 Range/Units 10:51 10:51 WBC 5.70 (4.8-10.8) K/uL RBC 4.01 L (4.7-6.1) M/uL Hgb 12.9 L (14.0-18.0) g/dL Hct 37.2 L (42-52) % MCV 92.8 (80-100) fL MCH 32.2 (25-34) pg MCHC 34.7 (32-36) g/dL RDW Std Deviation 47.2 H (36.4-46.3) fL RDW Coeff of Bharath 14.0 (11.5-14.5) % Plt Count 62 L (130-400) K/uL MPV 9.2 (7.4-10.4) fL Immature Gran % (Auto) 0.4 % Neut % (Auto) 81.0 % Lymph % (Auto) 9.5 % [place] % (Auto) 8.2 % Eos % (Auto) 0.9 % Baso % (Auto) 0.0 % Immature Gran # (Auto) 0.02 (0.00-0.02) K/uL Neut # (Auto) 4.62 (1.4-6.5) K/uL Lymph # (Auto) 0.54 L (1.2-3.4) K/uL [place] # (Auto) 0.47 (0.11-0.59) K/uL Eos # (Auto) 0.05 (0-0.5) K/uL Baso # (Auto) 0.00 (0-0.2) K/uL Echinocytes 1+ Acanthocytes (Spur) 1+ Sodium 140 (136-145) mmol/L Potassium 4.0 (3.5-5.1) mmol/L Chloride 105 (98-107) mmol/L Carbon Dioxide 25 (21-32) mmol/L Anion Gap 10.0 (3-11) BUN 27 H (7-18) mg/dl Creatinine 1.75 H (0.6-1.4) mg/dl Est Cr Clr Drug Dosing Not Reportable Est GFR ( Amer) 42.0 Est GFR (Non-Af Amer) 36.2 BUN/Creatinine Ratio 15.6 (10-20) Glucose 103 H (70-99) mg/dl Calcium 9.6 (8.5-10.1) mg/dl Total Bilirubin 1.3 H (0.2-1) mg/dl AST 32 (15-37) U/L ALT 35 (12-78) U/L Alkaline Phosphatase 210 H (45-117) U/L Troponin I < 0.015 (0-0.045) ng/ml Total Protein 8.3 H (6.4-8.2) gm/dl Albumin 4.5 (3.4-5.0) gm/dl Globulin 3.8 (2.5-4.0) gm/dl Albumin/Globulin Ratio 1.2 (0.9-2) Lipase 230 (73-393) U/L Imaging Data Radiologist's Impression: Radiology results as stated below per my review and the radiologist's interpretation: XR chest 2V routine CLINICAL HISTORY: 78 years-old Male presenting with esophageal obstruction. TECHNIQUE: PA and lateral views of the chest were obtained. COMPARISON: 07/15/2018. FINDINGS: Left internal jugular Mediport terminates in the lower SVC. Atherosclerosis of the aortic arch. Cardiac silhouette normal in size. Heterogeneity lung parenchyma. Lungs are mildly hyperinflated. Reticular opacities in the peripheral distribution at the lung bases. No new focal opacity. No pleural effusion or pneumothorax. Degenerative changes of the thoracic spine. Upper abdo men normal. IMPRESSION: 1. Findings suggest emphysema and bibasilar scarring/fibrosis. No focal in filtrate to suggest pneumonia. Electronically signed by: Chester Upton M.D. 11/04/2018 11:41 AM ECG Data Attestation: I personally reviewed and interpreted this ECG as follows: Indication: vomiting Rate (beats per minute): 66 Rhythm: sinus rhythm Findings: + other (QTC of 431), + PAC and + PVC; no acute ischemic change Blood Pressure Blood Pressure Findings: Elevated blood pressure Blood Pressure Disposition: further management by hospitalist MDM Narrative This patient was evaluated and appeared to be in no significant distress. IV access was obtained and laboratory work was drawn. Patient was hydrated with normal saline as he is not able to food or fluids down. Chest x-ray was performed and reveals no acute changes, no evidence of pneumonia. I discussed the case with Dr. Murphy of oncology who stated he was fairly certain the patient was referred to Dr. Aguila of [facility] gastroenterology. His office was contacted and no pending EGD is scheduled. Patient's case was discussed with the hospitalist service as he will need urgent upper endoscopy in order to tolerate any p.o. intake. Patient and were informed of the findings and plan and agree. Impression & Plan Esophageal obstruction Discharge Plan Visit Data *Final* Discharge Date/Time: 11/04/18 17:04 Chief Complaint: GI Assessment Stated Complaint: GERD, ESOPHAGUS PROBLEMS, CAN'T KEEP ANYTHING DOWN ED Provider: Marylu Alvarez Discharge Problem: Esophageal obstruction Patient Disposition: Admitted As Inpatient Discharge Instructions Interventions: ED Discharge Assessment Last Done: 11/04/18 17:04 The scribe's documentation has been prepared under my direction and personally reviewed by me in its entirety. I confirm that the note above accurately reflects all work, treatment, procedures, and medical decision making performed by me.
--- NOTE | 2018-11-04 16:13 | History & Physical Report ---
Date of Service November 04, 2018 Assessment & Plan (1) Inability to swallow: Unable to tolerate all PO, including secretions CT from September noted EGD planned for December due to possible PNA noted in September, completed 7 day abx course Has seen Dr. Aguila in the past, c/s pending NPO with IVF CXR today neg for acute (2) Hypertension: holding home meds Metoprolol 5mg PRN (3) Hyperlipidemia: Holding home meds (4) Cancer: s/p urostomy completed chemo Follows with Dr. Painting if needed (5) Prostate cancer: s/p radiation (6) GERD (gastroesophageal reflux disease): Pepcid IV scheduled (7) DVT prophylaxis: SCDs Holding rx in case of scope History of Present Illness Chief Complaint: 78 y/o M c/o inability to swallow. Pt states that for a few months he felt like some food was "sticking" when he would swallow. He would have to try several times to get things down. This did not happen with all intake, only solids and only occasionally. Yesterday he and his were out to dinner and he ate part of a "blooming onion" which is something that he typically does not eat. It was fried and spicy, which he usually does not eat. They had to leave the restaurant due to an inability to swallow. This continued through the night and this AM he could not get his meds down or even a small amount of water, so they came to the ED. He cannot swallow his secretions now. Pt states that as long as he does not try to eat anything he has no n/v. Pt denies fever, SOB, chest pain, abd pain, c/d, LE pain or swelling. Pt had a CT chest, AP in September for hx of bladder and prostate cancer. It showed esophageal thickening. He was sent to GI for EGD, however there was some concern for possible PNA on CT, so scope could not be done at that time. He is currently scheduled for December with Dr. Aguila. Pt did complete 7 days of abx, possibly azithromycin. He had no sx of PNA prior to this or since. Primary Care Provider: Salvador Liu Allergies Allergy/AdvReac Type Severity Reaction Status Date / Time Iodinated Contrast- Oral and Allergy Mild Rash Verified 11/04/18 11:41 IV Dye Home Medications Home Medications Medication Instructions Recorded Confirmed Type acetaminophen [Tylenol] 325 mg PO Q6H PRN 11/28/17 11/04/18 History ascorbic acid (vitamin C) 1,000 mg PO QDL 11/28/17 11/04/18 History atorvastatin 20 mg PO HS 11/28/17 11/04/18 History metoprolol succinate 12.5 mg PO QAM 11/28/17 11/04/18 History food supplement, lactose-reduced 1 ea PO HS ml 06/20/18 11/04/18 History 0.06 gram-1 kcal/mL oral liquid bicalutamide 50 mg tablet 50 mg PO DAILY tab 10/18/18 11/04/18 History calcium carbonate 600 mg calcium 600 mg PO DAILY tab 10/18/18 11/04/18 History (1,500 mg) tablet cholecalciferol (vitamin D3) 2,000 2,000 units PO DAILY 10/18/18 11/04/18 H istory unit capsule pantoprazole 40 mg tablet,delayed 40 mg PO QPM tab 10/24/18 11/04/18 History release Past Med/Surg History Medical History Hypertension Hyperlipidemia Anemia HX WHILE ON CHEMO 05/2017 - Needed platelet and blood transfusions. Hx of reduction of closed fracture R LOWER LEG Cancer CHEMOTHERAPY MAY-OCTOBER 2017 THRU BLAKE FOR BLADDER CANCER AAA (abdominal aortic aneurysm) (Acute) Acquired thrombocytopenia (Acute) BPH (benign prostatic hyperplasia) (Acute) Bladder cancer (Acute) Hydronephrosis (Acute) Skin cancer (Acute) Right hand , nose and posterior neck Surgical History History of cystoscopy X 4- 2 STENT PLACEMENT R URETER REMAINS IN PLACE S/P T&A (status post tonsillectomy and adenoidectomy) (Acute) as a child S/P radical cystoprostatectomy (Acute) surgery 12-18-2017 / Status post chemotherapy (Acute) chemo from May 2017 to October 2017 Family History Father , at age 78 Diverticulitis Ruptured Mother , age 83 Old age Son No problems noted. Son No problems noted. Daughter No problems noted. Social History Preferred Language: Yakut Communication Ability: Effective Visual Impairment: No Limitations Vineyardist Required: No Beliefs That Will Affect Care: None marital status: Current Living Situation: Spouse Other Information That Helps Us Care for You: No Feels Safe at Home: Yes Safety Concerns: Feels Safe At This Time Smoking Status: Former smoker Tobacco Type: cigarettes ; Cigarettes Per Day: 20 ; Second Hand Exposure: No ; Hx Alcohol Use: No Hx Substance Use: No Review of Systems Review of Systems: Pertinent positives and negatives reviewed in HPI--all others negative Physical Exam Constitutional: WD/WN, vitals as above Eyes: normal visual garcia by confrontation and + anicteric sclerae Neck: normal visual inspection and trachea midline Respiratory: normal respiratory effort, lungs clear to auscultation Cardiovascular: Rate/Rhythm: regular rate and regular rhythm Gastrointestinal (Abdomen): Inspection/Auscultation: abdomen not distended Percussion/Palpation: abdomen soft; abdomen nontender Musculoskeletal: Head/Neck/Chest: normocephalic and head atraumatic negative for edema, peripheral pulses intact Skin: no rashes, warm and dry Neurologic: awake; not confused Speech / Cognition: normal speech Psychiatric: A+Ox3, euthymic affect Results & Data Vital Signs (Past 12 Hours) Vital Signs Temp Pulse Pulse Resp BP BP Pulse Ox 11/04/18 15:50 64 17 100 11/04/18 15:40 64 19 100 11/04/18 15:30 63 23 142/82 H 100 11/04/18 15:20 64 28 H 100 11/04/18 15:10 66 26 H 100 11/04/18 15:00 64 15 146/85 H 100 11/04/18 14:50 66 14 100 11/04/18 14:40 64 15 100 11/04/18 14:30 64 21 142/91 H 100 11/04/18 14:20 66 19 100 11/04/18 14:10 63 19 100 11/04/18 14:00 63 18 147/79 H 99 11/04/18 13:50 70 17 100 11/04/18 13:40 63 14 100 11/04/18 13:30 63 13 145/81 H 100 11/04/18 13:20 63 20 100 11/04/18 13:10 60 22 100 11/04/18 13:00 63 22 138/88 100 11/04/18 12:50 59 L 17 100 11/04/18 12:40 62 16 100 11/04/18 12:30 60 14 132/72 99 11/04/18 12:20 64 15 100 11/04/18 12:10 61 18 99 11/04/18 12:00 61 18 122/76 100 11/04/18 11:50 62 15 100 11/04/18 11:49 63 20 138/87 100 11/04/18 11:46 21 138/87 100 11/04/18 11:40 19 11/04/18 11:31 16 11/04/18 11:10 64 18 11/04/18 11:06 66 14 11/04/18 10:34 37.0 C 72 20 131/77 99 Diagnostic Findings CXR: neg for acute CT chest 09/20/18: 1. No evidence for metastatic disease within the chest. 2. Faint patchy right perihilar groundglass densities in the small cluster of nodular densities within the right upper lobe. This favors a low-grade pne umonia. Follow-up recommended to ensure resolution. 3. Emphysema and chronic fibrotic changes again noted. 4. Mild nonspecific thickening of the distal esophagus. This could represent an esophagitis. This is similar to the prior study. The esophagus is filled with contrast suggesting delay of transit. Endoscopy could be used for further evaluation to exclude the possibility of an esophageal lesion/stenosis. ECG Additional Comments: PACs Code Status & VTE Plan Code Status Full code PG Care Time/CCT Total # of Minutes Spent Total Time Spent with Patient: Total time spent is greater than 50% in coordination of care (as documented) at patient's floor/unit and/or counseling patient:
[2018-11-04] MEDS ORDERED: FAMOTIDINE 20MG/5ML IV PUSH IV SCH (17:27)
[2018-11-04] MEDS ORDERED: METOPROLOL TARTRATE 1 MG/ML VIAL IV PRN (17:27)
[2018-11-04] MEDS ORDERED: ONDANSETRON INJ 2 MG/ML 2 ML VIAL IV PRN (17:27)
[2018-11-04] MEDS ORDERED: HydrALAZINE HCL 20 MG/ML VIAL IV PRN (17:57)
[2018-11-04] MEDS: D5W AND NSS 1,000 ML IV SCH (18:49)
[2018-11-04] MEDS: FAMOTIDINE 20 MG in SYRINGE 3 ML IV SCH (19:05)
[2018-11-05] MEDS: D5W AND NSS 1,000 ML IV SCH ×3 (04:39→21:46)
[2018-11-05 07:46] LABS: BUN Creatinine Ratio 14.8 (10-20); Calcium 8.4 mg/dl (8.5-10.1); Creatinine Clr Calc Pharmacy 41.2 ml/min; Est GFR (African American) 51.4; Est GFR (Non-African American) 44.4; Magnesium 1.9 mg/dl (1.8-2.4); Phosphorus 2.8 mg/dl (2.5-4.9); Potassium 3.9 mmol/L (3.5-5.1)
--- NOTE | 2018-11-05 08:58 | Anesthesiology Consultation ---
Date of Service November 05, 2018 Assessment & Plan (1) Encounter for pre-operative examination: Chart Review Chart Review: Acceptable Risk for Surgery and Patient NOT seen in Pre Admission Testing Consults Requested none History Surgery Operation Date: 11/05/18 09:00 Proposed Procedures p Esophagogastroduodenoscopy Dr Mingo Aguila Height/Weight Height: 5 ft 11 in Weight: 72 kg Allergies Allergy/AdvReac Type Severity Reaction Status Date / Time Iodinated Contrast- Oral and Allergy Mild Rash Verified 11/04/18 11:41 IV Dye Medications Home Medications Medication Instructions Recorded Confirmed Last Taken acetaminophen [Tylenol] 325 mg PO Q6H PRN 11/28/17 11/04/18 05 08:30 325mg ascorbic acid (vitamin C) 1,000 mg PO QDL 11/28/17 11/04/18 11/02/18 atorvastatin 20 mg PO HS 11/28/17 11/04/18 11/02/18 metoprolol succinate 12.5 mg PO QAM 11/28/17 11/04/18 11/04/18 food supplement, lactose-reduced 1 ea PO HS ml 06/20/18 11/04/18 11/04/18 0.06 gram-1 kcal/mL oral liquid bicalutamide 50 mg tablet 50 mg PO DAILY tab 10/18/18 11/04/18 11/03/18 calcium carbonate 600 mg calcium 600 mg PO DAILY tab 10/18/18 11/04/18 Unknown (1,500 mg) tablet cholecalciferol (vitamin D3) 2,000 2,000 units PO DAILY 10/18/18 11/04/18 Unknown unit capsule pantoprazole 40 mg tablet,delayed 40 mg PO QPM tab 10/24/18 11/04/18 11/02/18 release Active Medications Generic Name Dose Route Start Last Admin Trade Name Freq PRN Reason Stop Dose Admin Dextrose/Sodium Chloride 1,000 mls @ 100 mls/hr 11/04/18 18:00 11/05/18 04:39 D5w And Nss IV 12/04/18 17:59 100 mls/hr .Q10H HERRERA Administration Famotidine 20 mg/ Syringe 5 mls @ 2.5 mls/min 11/04/18 18:00 11/04/18 19:05 IV 12/04/18 08:59 2.5 mls/min DAILY HERRERA Administration Past Medical History Medical History Hypertension Hyperlipidemia Anemia HX WHILE ON CHEMO 05/2017 - Needed platelet and blood transfusions. Hx of reduction of closed fracture R LOWER LEG Cancer CHEMOTHERAPY MAY-OCTOBER 2017 THRU BLAKE FOR BLADDER CANCER AAA (abdominal aortic aneurysm) (Acute) Acquired thrombocytopenia (Acute) BPH (benign prostatic hyperplasia) (Acute) Bladder cancer (Acute) Hydronephrosis (Acute) Skin cancer (Acute) Right hand , nose and posterior neck Past Family History Family History Father , at age 78 Diverticulitis Ruptured Mother , age 83 Old age Son No problems noted. Son No problems noted. Daughter No problems noted. Past Surgical History Surgical History History of cystoscopy X 4- 2 STENT PLACEMENT R URETER REMAINS IN PLACE S/P T&A (status post tonsillectomy and adenoidectomy) (Acute) as a child S/P radical cystoprostatectomy (Acute) surgery 12-18-2017 / Status post chemotherapy (Acute) chemo from May 2017 to October 2017 Social History Smoking Status: Former smoker tobacco type: cigarettes Smoking cigarettes per day: 20 Hx Alcohol Use: No Hx Substance Use: No substance use type: does not use Physical Exam Vital Signs Last Vital Signs Temp 36.7 C 11/05/18 07:28 Pulse 61 11/05/18 07:28 Resp 18 11/05/18 07:28 BP 148/84 H 11/05/18 07:28 Pulse Ox 97 11/05/18 07:28 Testing Laboratory Results 11/04/18 10:51 11/05/18 07:05 Electrocardiogram Date: 11/04/18 Findings: + NSR @ (66) PACs with aberrant conduction, When compared with ECG of 15-JUL-2018 10:52, Aberrant conduction is now Present
[2018-11-05 09:13] LABS: Hematocrit (blood only) 32.4 % (42-52); Hemoglobin 10.9 g/dL (14.0-18.0); Mean Corpuscular Hemoglobin 31.8 pg (25-34); Mean Corpuscular Hgb Conc 33.6 g/dL (32-36); Mean Corpuscular Volume 94.5 fL (80-100); RDW Coefficient of Variation 14.2 % (11.5-14.5); Red Blood Count 3.43 M/uL (4.7-6.1); White Blood Count 3.72 K/uL (4.8-10.8)
[2018-11-05 09:16] LABS: Mean Platelet Volume 9.5 fL (7.4-10.4); Platelet Count 38 K/uL (130-400)
[2018-11-05 09:22] LABS: INR 1.1 (0.9-1.1)
[2018-11-05] MEDS: FAMOTIDINE 20 MG in SYRINGE 3 ML IV SCH (09:25)
[2018-11-05] MEDS ORDERED: DEXAMETHASONE SOD INJ 4 MG/ML VIAL ONE (14:34)
[2018-11-05] MEDS ORDERED: PROPOFOL IV EMULSION 10 MG/ML 20 ML VIAL IV ONE (14:34)
[2018-11-05] MEDS ORDERED: ONDANSETRON INJ 2 MG/ML 2 ML VIAL ONE (14:34)
[2018-11-05] MEDS ORDERED: SUCCINYLCHOLINE CHLORIDE 20 MG/ML 10 ML VIAL ONE (14:34)
[2018-11-05] MEDS ORDERED: fentaNYL citrate 100 MCG/2 ML VIAL ONE (14:34)
[2018-11-05] MEDS ORDERED: LIDOCAINE HCL 2% 2 ML VIAL/AMP(20MG/ML) INFIL ONE (14:34)
[2018-11-05] MEDS ORDERED: SODIUM CHLORIDE 0.9% 1000ML 1,000 ML IV SCH (15:15)
--- NOTE | 2018-11-05 15:16 | History & Physical Report ---
Date of Service November 05, 2018 History of Present Illness Chief Complaint: esophageal obstruction Primary Care Provider: Salvador Liu For EGD in OR Allergies Allergy/AdvReac Type Severity Reaction Status Date / Time Iodinated Contrast- Oral and Allergy Mild Rash Verified 11/04/18 11:41 IV Dye Home Medications Home Medications Medication Instructions Recorded Confirmed Type acetaminophen [Tylenol] 325 mg PO Q6H PRN 11/28/17 11/04/18 History ascorbic acid (vitamin C) 1,000 mg PO QDL 11/28/17 11/04/18 History atorvastatin 20 mg PO HS 11/28/17 11/04/18 History metoprolol succinate 12.5 mg PO QAM 11/28/17 11/04/18 History food supplement, lactose-reduced 1 ea PO HS ml 06/20/18 11/04/18 History 0.06 gram-1 kcal/mL oral liquid bicalutamide 50 mg tablet 50 mg PO DAILY tab 10/18/18 11/04/18 History calcium carbonate 600 mg calcium 600 mg PO DAILY tab 10/18/18 11/04/18 History (1,500 mg) tablet cholecalciferol (vitamin D3) 2,000 2,000 units PO DAILY 10/18/18 11/04/18 History unit capsule pantoprazole 40 mg tablet,delayed 40 mg PO QPM tab 10/24/18 11/04/18 History release Past Med/Surg History Medical History Hypertension Hyperlipidemia Anemia HX WHILE ON CHEMO 05/2017 - Needed platelet and blood transfusions. Hx of reduction of closed fracture R LOWER LEG Cancer CHEMOTHERAPY MAY-OCTOBER 2017 THRU BLAKE FOR BLADDER CANCER AAA (abdominal aortic aneurysm) (Acute) Acquired thrombocytopenia (Acute) BPH (benign prostatic hyperplasia) (Acute) Bladder cancer (Acute) Hydronephrosis (Acute) Skin cancer (Acute) Right hand , nose and posterior neck Surgical History History of cystoscopy X 4- 2 STENT PLACEMENT R URETER REMAINS IN PLACE S/P T&A (status post tonsillectomy and adenoidectomy) (Acute) as a child S/P radical cystoprostatectomy (Acute) surgery 12-18-2017 / Status post chemotherapy (Acute) chemo from May 2017 to October 2017 Family History Father , at age 78 Diverticulitis Ruptured Mother , age 83 Old age Son No problems noted. Son No problems noted. Daughter No problems noted. Social History Preferred Language: Mohawk Communication Ability: Effective Visual Impairment: No Limitations Ac/Dc Rewinder Required: No Beliefs That Will Affect Care: None marital status: Current Living Situation: Spouse Other Information That Helps Us Care for You: No Feels Safe at Home: Yes Safety Concerns: Feels Safe At This Time Smoking Status: Former smoker Tobacco Type: cigarettes ; Cigarettes Per Day: 20 ; Second Hand Exposure: No ; Hx Alcohol Use: No Hx Substance Use: No Physical Exam Constitutional: well developed and well nourished Respiratory: normal respiratory effort Cardiovascular: Rate/Rhythm: regular rate and regular rhythm Gastrointestinal (Abdomen): Urostomy in RLQ Results & Data Vital Signs (Past 12 Hours) Vital Signs Temp Pulse Resp BP Pulse Ox 11/05/18 14:57 36.8 C 71 18 177/92 H 99 11/05/18 07:28 36.7 C 61 18 148/84 H 97 Code Status & VTE Plan VTE Prophylaxis Plan VTE Prophylaxis will be ordered: Yes
[2018-11-05] MEDS ORDERED: ATROPINE SULFATE 0.1 MG/ML 10ML SYR IV PRN (15:20)
[2018-11-05] MEDS ORDERED: PROMETHAZINE HCL 6.25 MG in SODIUM CHLORIDE 0.9% 50 ML IV PRN (15:20)
[2018-11-05] MEDS ORDERED: ePHEDrine sulfate 50 MG/ML AMP IV PRN (15:20)
[2018-11-05] MEDS ORDERED: fentaNYL citrate 100 MCG/2 ML VIAL IV PRN (15:20)
[2018-11-05] MEDS ORDERED: ONDANSETRON INJ 2 MG/ML 2 ML VIAL IV PRN (15:20)
--- NOTE | 2018-11-05 15:56 | Hospitalist Progress Note ---
Date of Service November 05, 2018 Assessment & Plan (1) Inability to swallow: - Cannot tolerate PO intake following dinner yesterday; had outpt EGD scheduled in Dec due to recent findings of esophageal wall thickening but required urgent procedure. - GI consulted, s/p EGD this afternoon (see below) - NPO; on IV fluids at 100 cc/hr. Advance diet per GI if recommended. - Holding all PO meds. Famotidine 20 mg IV daily. (2) Esophageal mass: - Large partially obstructing mass noted at GE junction on EGD; biopsy is pending. - CT of chest/abd/pelvis is pending for staging purposes. - Will need outpatient oncology referral. - Advance diet if approved by GI. (3) JAVIER (acute kidney injury): - Creatinine increased to 1.7 on admission, now improving with IV fluid hydration. - Continue D5W + NS at 100 cc/hr. - Monitor renal function daily. (4) Stage III chronic kidney disease: - Renally dose all meds. (5) Anemia: - H/o anemia -- was likely chemotherapy induced in the past. Acute anemia during this admission likely related to IV fluids vs underlying mass with ?bleeding. - Consider anemia work up, including iron studies. - Monitor CBC qAM. (6) Hypertension: - Holding home beta porter; Hydralazine IV prn. (7) Hyperlipidemia: - Holding home statin. (8) Cancer: - S/p urostomy. (9) Prostate cancer: - S/p radiation therapy (completed a few weeks ago). (10) GERD (gastroesophageal reflux disease): - Pepcid IV daily. (11) DVT prophylaxis: - SCDs; holding pharmacologic ppx for procedure. Dispo: Med/surg; discharge pending imaging results and advancement of diet in setting of partially obstructing esophageal mass. Supervising Physician Co-Signing Physician Notes PA Supervision Note: I did not personally see or examine the patient today, but I verified all powers points of ERIS Warren's assessment and plan with the following exceptions/additions: I discussed the patient's care with GI Dr. Aguila COncern for esophageal malignancy Continue IVFs, await biopsy results, start full liquid diet Subjective Pt. reports inability to swallow anything -- including secretions. Plan for EGD this afternoon for evaluation. Review of Systems Review of Systems: All systems reviewed & are unremarkable except as noted in HPI & below Constitutional: no fever, no chills, no fatigue and no weakness Ear, Nose, Mouth, Throat: + dysphagia Respiratory: no cough, no dyspnea, no dyspnea on exertion and no wheezing Cardiovascular: no chest pain, no palpitations and no edema Gastrointestinal: no abdominal pain, no nausea and no constipation Genitourinary: no difficulty urinating Musculoskeletal: no back pain and no joint pain Integumentary: no non-healing lesions Physical Exam Physical Exam: General: Resting comfortably HEENT: NC/AT; PERRLA with EOMI; [place] conjunctiva, MMM. No erythema of posterior pharynx Neck: Supple and nontender Cardiac: RRR Lungs: CTA bilaterally Abdomen: Bowel normoactive X 4; Nontender to palpation Extremities: Warm. No edema present Neuro: No focal weakness Skin: No rash Results & Data Vital Signs (Past 12 Hours) Vital Signs Temp Pulse Resp BP Pulse Ox 11/05/18 14:57 36.8 C 71 18 177/92 H 99 11/05/18 07:28 36.7 C 61 18 148/84 H 97 Laboratory Results 11/05/18 11/05/18 11/05/18 Range/Units 09:01 09:01 07:05 WBC 3.72 L (4.8-10.8) K/uL RBC 3.43 L (4.7-6.1) M/uL Hgb 10.9 L (14.0-18.0) g/dL Hct 32.4 L (42-52) % MCV 94.5 (80-100) fL MCH 31.8 (25-34) pg MCHC 33.6 (32-36) g/dL RDW Std Deviation 49.0 H (36.4-46.3) fL RDW Coeff of Bharath 14.2 (11.5-14.5) % Plt Count 38 L (130-400) K/uL MPV 9.5 (7.4-10.4) fL PT 11.0 (9.0-12.0) Seconds INR 1.1 (0.9-1.1) Sodium 143 (136-145) mmol/L Potassium 3.9 (3.5-5.1) mmol/L Chloride 113 H (98-107) mmol/L Carbon Dioxide 25 (21-32) mmol/L Anion Gap 5.0 (3-11) BUN 22 H (7-18) mg/dl Creatinine 1.48 H (0.6-1.4) mg/dl Est Cr Clr Drug Dosing 41.2 ml/min Est GFR ( Amer) 51.4 Est GFR (Non-Af Amer) 44.4 BUN/Creatinine Ratio 14.8 (10-20) Glucose 111 H (70-99) mg/dl Calcium 8.4 L (8.5-10.1) mg/dl Phosphorus 2.8 (2.5-4.9) mg/dl Magnesium 1.9 (1.8-2.4) mg/dl PG Care Time/CCT Total # of Minutes Spent Total Time Spent with Patient: Total time spent is greater than 50% in coordination of care (as documented) at patient's floor/unit and/or counseling patient:
--- NOTE | 2018-11-05 16:08 | GI REPORT ---
Patient Name: Dwight Bennett Procedure Date: 11/05/2018 2:51 PM Date of : 1940 Admit Type: Inpatient Age: 78 Gender: Male Attending MD: Quan Aguila MD Procedure: Upper GI endoscopy Providers: Quan Aguila MD Referring MD: Josefina Westbrook Md Indications: Dysphagia Medicines: General Anesthesia Complications: No immediate complications. Estimated Blood Loss: Estimated blood loss was minimal. Procedure: Pre-Anesthesia Assessment: - Prior to the procedure, a History and Physical was performed, and patient medications, allergies and sensitivities were reviewed. The patient's tolerance of previous anesthesia was reviewed. - The risks and benefits of the procedure and the sedation options and risks were discussed with the patient. All questions were answered and informed consent was obtained. After obtaining informed consent, the endoscope was passed under direct vision. Throughout the procedure, the patient's blood pressure, pulse, and oxygen saturations were monitored continuously. The Endoscope was introduced through the mouth, and advanced to the second part of duodenum. The upper GI endoscopy was accomplished without difficulty. The patient tolerated the procedure well. Findings: Food was found in the middle third of the esophagus and in the lower third of the esophagus. Removal of food was accomplished. A medium-sized, fungating mass with no bleeding and no stigmata of recent bleeding was found at the gastroesophageal junction, 38 cm from the incisors. The mass was partially obstructing and circumferential. Biopsies were taken with a cold forceps for histology. Estimated blood loss was minimal. The entire examined stomach was normal. The examined duodenum was normal. Impression: - Food in the middle third of the esophagus and in the lower third of the esophagus. Removal was successful. 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 Biopsied. - Normal stomach. - Normal examined duodenum. Recommendation: - [facility] patient to [facility] for [facility] care. Quan Aguila M.D. Quan Aguila MD 11/05/2018 4:08:28 PM This report has been signed electronically. Note Initiated On: 11/05/2018 2:51 PM Number of Addenda: 0 I attest to the content of the Intraoperative Record and orders documented therein, exceptions below {[id number]}
--- NOTE | 2018-11-05 16:36 | Consultation Report ---
DATE OF CONSULTATION: 11/05/2018 REASON FOR EVALUATION: Inability to swallow. HISTORY OF PRESENT ILLNESS: The patient is a 78-year-old with bladder and prostate cancer, status post urostomy in the right lower quadrant. The patient for the last few months has been having difficulty swallowing intermittently for solids. Sunday evening, he was eating at [employer] and ate a blooming onion and developed some esophageal obstruction. The family had to leave the restaurant and the following morning when he did not improve, came to the hospital where he was admitted yesterday with inability to swallow even secretions. Unfortunately, GI consultation was not obtained till today, at which point, we took him to the operating room, intubated him for airway protection and performed an EGD that showed a large amount of food in the lower third and middle third of the esophagus that was removed orally with a Heath net. The lower esophageal sphincter area was tight and difficult to pass the scope through. There was what appeared to be a tumor in the area which was biopsied. The stomach and duodenum looked normal. PAST MEDICAL HISTORY: Remarkable for hypertension, hyperlipidemia, anemia, cancer of the bladder and prostate. He has an abdominal aortic aneurysm, benign prostatic hypertrophy, history of hydronephrosis, he has had a tonsillectomy, radical cystoprostatectomy. MEDICATIONS: Per list. ALLERGIES: Iodinated contrast. FAMILY HISTORY: Father of diverticulitis. Mother of old age. SOCIAL HISTORY: The patient is . Feels safe at home. Former tobacco user. No alcohol. REVIEW OF SYSTEMS: Positive for the above symptoms only. PHYSICAL EXAMINATION: GENERAL: The patient appears awake, alert, in no acute distress. He is spitting up his saliva into a cup. HEART: Showed a regular rate and rhythm. ABDOMEN: Shows a urostomy bag in the right lower quadrant of the abdomen. LUNGS: Clear. Vital signs were normal. IMPRESSION: The patient has what appears to be an esophageal tumor at the GE junction with food impaction that has been resolved endoscopically. At this point, I plan on repeating a CAT scan of the chest and abdomen. Will get a CEA and probably need oncology consultation. The patient will be placed on a full liquid diet at this point.
--- NOTE | 2018-11-05 17:05 | Anesthesiology Progress Note ---
Date of Service November 05, 2018 Anesthesia Post Procedure Vital Signs Vital Signs: Temp Pulse Pulse Resp BP Pulse Ox 11/05/18 16:47 36.2 C L 56 L 16 132/74 98 11/05/18 16:39 36.2 C L 57 L 17 131/68 98 11/05/18 16:30 55 L 16 132/72 100 11/05/18 16:20 56 L 14 140/70 100 11/05/18 16:13 36.0 C L 62 14 138/83 100 11/05/18 14:57 36.8 C 71 18 177/92 H 99 11/05/18 07:28 36.7 C 61 18 148/84 H 97 11/04/18 23:54 36.7 C 58 L 16 149/84 H 100 11/04/18 17:36 36.5 C 68 16 144/80 H 99 Transfer of Care Handoff Completed per policy Notes Mental Status: alert / awake / arousable Patient Amnestic to Procedure: Yes Nausea / Vomiting: adequately controlled Pain: adequately controlled Airway Patency, RR, SpO2: stable & adequate BP & HR: stable & adequate Hydration State: stable & adequate Anesthetic Complications: no major complications apparent
[2018-11-05] MEDS: methylPREDNISolone 4 MG TAB PO SCH (22:25)
[2018-11-06 07:20] LABS: Hematocrit (blood only) 34.5 % (42-52); Hemoglobin 11.7 g/dL (14.0-18.0); Mean Corpuscular Hemoglobin 31.7 pg (25-34); Mean Corpuscular Hgb Conc 33.9 g/dL (32-36); Mean Corpuscular Volume 93.5 fL (80-100); RDW Coefficient of Variation 13.6 % (11.5-14.5); RDW Standard Deviation 46.5 fL (36.4-46.3); Red Blood Count 3.69 M/uL (4.7-6.1); White Blood Count 5.35 K/uL (4.8-10.8)
[2018-11-06 07:23] LABS: Mean Platelet Volume 10.5 fL (7.4-10.4); Platelet Count 40 K/uL (130-400)
[2018-11-06] MEDS: D5W AND NSS 1,000 ML IV SCH (07:36)
[2018-11-06] MEDS: methylPREDNISolone 4 MG TAB PO SCH (07:37)
[2018-11-06 07:51] LABS: BUN Creatinine Ratio 11.2 (10-20); Calcium 8.5 mg/dl (8.5-10.1); Creatinine Clr Calc Pharmacy 41.8 ml/min; Est GFR (African American) 52.3; Est GFR (Non-African American) 45.1; Magnesium 1.9 mg/dl (1.8-2.4); Potassium 3.8 mmol/L (3.5-5.1)
[2018-11-06] MEDS: FAMOTIDINE 20 MG in SYRINGE 3 ML IV SCH (08:25)
[2018-11-06] MEDS ORDERED: methylPREDNISolone 4 MG TAB PO ONE (08:43)
[2018-11-06] MEDS ORDERED: IOVERSOL 100ml IV PRN (10:13)
--- NOTE | 2018-11-06 10:33 | CT Scan Report ---
CT chest w con CLINICAL HISTORY: 78 years-old Male presenting with esophageal tumor. TECHNIQUE: Multidetector CT imaging of the chest was performed after the administration of intravenou s contrast. IV contrast: 94 mL of Optiray 320. One or more dose lowering techniques were used consist ent with the principles of ALARA (as low as reasonably achievable), including automatic exposure cont rol, mA or kV adjustment to individual patient size, and/or use of iterative reconstruction. COMPARISON: 09/20/2018. CT DOSE (mGy.cm): The estimated cumulative dose is 883.64 mGy.cm. FINDINGS: Yacht [employer] topogram: Unremarkable. Soft tissues: Normal thyroid and thoracic inlet. Gynecomastia. Left internal jugular Mediport termina jay in the SVC. No axillary, supraclavicular, mediastinal, or hilar lymphadenopathy. Atherosclerosis of the aorta. Normal heart size. Coronary artery and aortic valve calcification. No pericardial or pl eural effusion. Apparent increase bulk of the soft tissue thickening in the distal esophagus and asiya roesophageal junction, which may be the primary site of disease. The upper to mid esophagus is also m ore distended on the current exam further suggesting an element of or partial obstruction at the site of the distal esophageal mass. Lungs and airways: No pneumothorax. Central airways patent. Pulmonary arteries are not significantly enlarged relative to adjacent bronchi. No interlobular septal thickening. Subpleural reticular opacit ies and cystic change in a dependent distribution in the lower lobes, right greater than left. There is also similar changes in the subpleural region of the right upper lobe to lesser extent. Moderate c entrilobular emphysema. Musculoskeletal: Degenerative changes of the spine. No destructive osseous lesion. IMPRESSION: 1. Interval increase bulk/size of the masslike soft tissue thickening of the distal esophagus and ga stroesophageal junction at the site of primary malignancy. There is also evidence of increased esopha geal distention likely indicating an element of partial obstruction. Findings raise concern for progr ession of primary malignancy. 2. No lymphadenopathy or evidence of intrathoracic metastatic disease. 3. Emphysema with fibrotic change. Electronically signed by: Chester Upton M.D. 11/06/2018 10:31 AM
--- NOTE | 2018-11-06 10:34 | CT Scan Report ---
CT abdomen oral and IV con CT DOSE: HISTORY: Esophageal mass esophageal tumor TECHNIQUE: Multiaxial CT images of the abdomen was performed following the use of intravenous and ora l contrast. A dose lowering technique was utilized adhering to the principles of ALARA. COMPARISON STUDY: 09/20/2018 FINDINGS: Unchanged right and to a lesser extent left basilar parenchymal chronic change. Liver splee n and pancreas enhance uniformly. Unchanged soft tissue thickening gastroesophageal junction. This andrade s a maximum overall dimension of 2.4 x 2.2 cm. Oral contrast indicates mild esophageal distention pro ximal to the gastroesophageal junction. Given the history presented this potentially is neoplastic in nature. Moderate complex fluid filled distention of the stomach. Fullness of the renal collecting systems and renal pelves bilaterally. Aneurysmal dilatation of the infrarenal abdominal aorta is stable. Operative changes consistent with a right ileal conduit are again noted. The adrenal glands are normal. No significant paraesophageal or para-aortic adenopathy. IMPRESSION: 1. Unchanged circumferential thickening of the gastroesophageal junction having maximum dimensions of 2.4 x 2.2 cm. 2. Moderate distention of the esophagus proximal to this site raising the possibility of an obstructi ng lesion. 3. Incidental and postoperative findings throughout the abdomen with no evidence for metastatic fitzgerald e. The above report was generated using voice recognition software. It may contain grammatical, syntax or spelling errors. Electronically signed by: Marco A Darling M.D. 11/06/2018 10:32 AM
--- NOTE | 2018-11-06 13:23 | Hospitalist Progress Note ---
Date of Service November 06, 2018 Assessment & Plan (1) Inability to swallow: - Could not tolerate PO intake prior to admission, likely related to esophageal obstructing mass; did have esophageal wall thickening on CT in September 2018 but EGD was delayed due to diagnosis of PNA. - GI consulted, s/p EGD (see below) - Full liquid diet; IV fluids at 100 cc/hr. - Holding all PO meds - consider resuming as oral solution. Famotidine 20 mg IV daily. (2) Esophageal mass: - Partially obstructing mass noted at GE junction on EGD; biopsy pending but appears malignant. - CT of chest/abd/pelvis with no evidence of metastases. - GI following, appreciate input. - Will likely need oncology referral as inpt -- he plans to move to [place], [place] at the end of Nov after selling his house. Will need to determine if he should follow with oncologist in [place] vs. new location. (3) JAVIER (acute kidney injury): - Creatinine increased to 1.7 on admission, now improved with IV fluid hydration. - Continue D5W + NS at 100 cc/hr. - Monitor renal function daily. (4) Stage III chronic kidney disease: - Renally dose all meds. (5) Anemia: - H/o anemia -- was likely chemotherapy induced in the past. Acute anemia during this admission likely related to IV fluids vs underlying mass with ?bleeding. - Monitor CBC qAM. (6) Hypertension: - Holding home beta porter; Hydralazine IV prn. (7) Hyperlipidemia: - Holding home statin. (8) Malignant neoplasm of urinary bladder: - S/p cystoscopy and transurethral resection of bladder tumor in Nov 2016, confirmed papillary urothelial carcinoma. - S/p creation of ileal conduit in December 2017. - Follows with Dr. Painting. (9) Prostate cancer: - S/p radiation therapy (completed in September 2018). (10) Emphysema of lung: - Noted on CT chest. - Currently stable with no resp issues. (11) AAA (abdominal aortic aneurysm): - Followed as outpatient, cardiology. (12) BPH (benign prostatic hyperplasia): - Not currently on agents. (13) GERD (gastroesophageal reflux disease): - Pepcid IV daily. (14) Thrombocytopenia: - Plt count has been low -- will continue to monitor. Unclear etiology, follows with Heme/Onc - Holding pharmacologic ppx. -would transfuse plts if <15k or has evidence of bleeding and <50k (15) DVT prophylaxis: - SCDs; holding pharmacologic ppx in setting of thrombocytopenia. Dispo: Med/surg; discharge pending diet advancement and plan for newly diagnosed esophageal mass. Supervising Physician Co-Signing Physician Notes PA Supervision Note: I did not personally see or examine the patient today, but I verified all powers points of [facility]'s assessment and plan with the following exceptions/additions: None Subjective Pt. has been tolerating full liquid diet but has not taken any PO meds following procedure. EGD with esophageal mass, biopsy is pending but appears malignant. Will likely need oncology consult as inpt. His house will be closing on Nov 30, plans to move to [facility] following completion of house deal. He will be living with his daughter in an in law suite. Will need to determine plan for oncology follow up. Review of Systems Review of Systems: All systems reviewed & are unremarkable except as noted in HPI & below Constitutional: no fever, no chills, no fatigue, no weakness and no anorexia Respiratory: no cough, no dyspnea, no dyspnea on exertion and no wheezing Cardiovascular: no chest pain, no palpitations and no edema Gastrointestinal: no abdominal pain, no nausea, no vomiting and no constipation Genitourinary: no difficulty urinating Musculoskeletal: no back pain and no joint pain Integumentary: no non-healing lesions Physical Exam Physical Exam: General: Resting comfortably HEENT: NC/AT; PERRLA with EOMI; [place] conjunctiva, MMM. No erythema of posterior pharynx Neck: Supple and nontender Cardiac: RRR Lungs: CTA bilaterally Abdomen: Bowel normoactive X 4; Nontender to palpation Extremities: Warm. No edema present Neuro: No focal weakness Skin: No rash Results & Data Vital Signs (Past 12 Hours) Vital Signs Temp Pulse Pulse Resp BP Pulse Ox 11/06/18 09:52 122/66 11/06/18 07:35 36.3 C L 65 15 174/80 H 97 11/06/18 04:01 36.4 C L 58 L 16 133/70 97 Laboratory Results 11/06/18 11/06/18 11/05/18 Range/Units 07:11 07:11 17:45 WBC 5.35 (4.8-10.8) K/uL RBC 3.69 L (4.7-6.1) M/uL Hgb 11.7 L (14.0-18.0) g/dL Hct 34.5 L (42-52) % MCV 93.5 (80-100) fL MCH 31.7 (25-34) pg MCHC 33.9 (32-36) g/dL RDW Std Deviation 46.5 H (36.4-46.3) fL RDW Coeff of Bharath 13.6 (11.5-14.5) % Plt Count 40 L (130-400) K/uL MPV 10.5 H (7.4-10.4) fL Sodium 140 (136-145) mmol/L Potassium 3.8 (3.5-5.1) mmol/L Chloride 109 H (98-107) mmol/L Carbon Dioxide 23 (21-32) mmol/L Anion Gap 8.0 (3-11) BUN 16 (7-18) mg/dl Creatinine 1.46 H (0.6-1.4) mg/dl Est Cr Clr Drug Dosing 41.8 ml/min Est GFR ( Amer) 52.3 Est GFR (Non-Af Amer) 45.1 BUN/Creatinine Ratio 11.2 (10-20) Glucose 125 H (70-99) mg/dl Calcium 8.5 (8.5-10.1) mg/dl Magnesium 1.9 (1.8-2.4) mg/dl Carcinoembryonic Ag 1.0 (0-2.5) ng/ml PG Care Time/CCT Total # of Minutes Spent Total Time Spent with Patient: Total time spent is greater than 50% in coordination of care (as documented) at patient's floor/unit and/or counseling patient:
--- NOTE | 2018-11-06 15:14 | Progress Note ---
DATE: 11/06/2018 The patient is tolerating a full liquid diet without difficulty. He is having no abdomen or chest pain. PHYSICAL EXAMINATION: VITAL SIGNS: Normal. He is afebrile. His CAT scan of the chest and abdomen show a 2.4 cm tumor in the distal esophagus. There does not appear to be any surrounding lymph node enlargement. 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 IMPRESSION: The patient has a distal esophageal carcinoma. I informed the patient and his and daughter of the diagnosis and that appears to be localized on CAT scan. At this point, I plan on consulting Dr. Painting, his oncologist for further staging and treatment options. Of note is that his CEA is 1 and I plan to move to [place], [place] at the end of November which may impact his treatment course.
[2018-11-06] MEDS: METOPROLOL TARTRATE 25 MG TAB PO SCH (20:54)
[2018-11-07 00:14] VITALS: TEMP 97.3
[2018-11-07 07:24] VITALS: BP 127/74; O2SAT 100
[2018-11-07 07:33] LABS: Hematocrit (blood only) 33.3 % (42-52); Hemoglobin 11.4 g/dL (14.0-18.0); Mean Corpuscular Hgb Conc 34.2 g/dL (32-36); Mean Corpuscular Volume 93.5 fL (80-100); RDW Standard Deviation 47.8 fL (36.4-46.3); Red Blood Count 3.56 M/uL (4.7-6.1); White Blood Count 5.46 K/uL (4.8-10.8)
[2018-11-07 07:38] LABS: Mean Platelet Volume 9.2 fL (7.4-10.4); Platelet Count 41 K/uL (130-400)
[2018-11-07 08:10] LABS: BUN Creatinine Ratio 11.5 (10-20); Creatinine Clr Calc Pharmacy 44.5 ml/min; Est GFR (African American) 56.5; Est GFR (Non-African American) 48.7; Magnesium 1.7 mg/dl (1.8-2.4); Potassium 3.5 mmol/L (3.5-5.1)
[2018-11-07] MEDS: METOPROLOL TARTRATE 25 MG TAB PO SCH (08:48)
[2018-11-07] MEDS: FAMOTIDINE 20 MG in SYRINGE 3 ML IV SCH (08:49)
[2018-11-07] MEDS ORDERED: ATORVASTATIN 20 MG TAB PO SCH (09:00)
[2018-11-07] MEDS ORDERED: CALCIUM CARBONATE 1,250 MG/5 ML UDC PO SCH (09:00)
[2018-11-07] MEDS ORDERED: BICALUTAMIDE 50 MG TAB PO SCH (09:00)
--- NOTE | 2018-11-07 09:20 | Radiation OncologyConsultation ---
Date of Consultation November 07, 2018 Assessment & Plan (1) Adenocarcinoma of gastroesophageal junction: Assessment: Mr. Bennett is a 78-year-old gentleman with a previous history of bladder cancer and prostate cancer treated with chemotherapy, surgical resection and radiation therapy. The patient's bladder cancer and prostate cancer appear to be currently in remission. The patient does remain on bicalutamide for his prostate cancer. More recently, the patient presented with dysphasia and was admitted to the hospital and found to have gastroesophageal adenocarcinoma (based on preliminary pathology reports from Dr. Aguila). The patient has been seen by Dr. Paul Painting from medical oncology and we have been requested to see the patient to discuss the role of radiation therapy for esophageal cancer. Treatment Options: 1. Preoperative chemotherapy and radiation therapy followed by esophagectomy. 2. Definitive chemotherapy and radiation therapy. 3. Best supportive care. Recommendation: 1. PET/CT scan in the outpatient setting for completion of staging work-up. 2. If PET/CT scan negative for metastatic disease, chemotherapy and radiation therapy with or without esophagectomy based on thoracic surgery input. I did speak with Dr. Aguila regarding the urgency of treatment given the partial obstruction and he did feel that it would be reasonable to at least complete the work-up prior to starting treatment. I have spoken with the patient as well regarding a referral to a more regional radiation oncology center since he is moving at the end of this month. I explained to him that I think it would be in his best interest to have all of his care completed underneath the supervision of one medical oncology and radiation oncology provider to ensure adequate and appropriate care. Plan: 1. PET/CT scan will be ordered in the outpatient setting by our department. 2. I have spoken with Dr. Soni in the radiation oncology department at [facility] ([facility]) and they will schedule the patient for an outpatient appointment regarding radiation therapy in the next several weeks to allow time for the patient to be discharged from the hospital and have his PET scan. 3. Appreciate medical oncology input. 4. Patient should have EUS completed in either the inpatient or outpatient setting for completion of the staging work-up in addition to PET/CT scan. 5. Patient and family encouraged to call us with any further questions or concerns. Rationale/Explanation of Treatment: I explained the indications, alternatives, benefits, risks and side effects of external beam radiation therapy. I then discussed radiation therapy side effects for treatment which include, but are not limited to, skin erythema, dry/moist desquamation of the skin, hyperpigmentation, telangiectasias, damage to the heart and development of cardiovascular disease, damage to the lungs including radiation pneumonitis, pulmonary fibrosis, decrease in pulmonary function, cough, fistula formation, tracheal stenosis, esophageal stenosis, esophageal perforation, dysphagia, nausea, vomiting, ulcers in stomach/bowel, gastritis, gastric perforation, bowel perforation, bowel obstruction, weight loss, dehydration, decreased appetite, liver damage including hepatitis and liver failure, damage to the kidneys including decreased renal function and renal failure, spinal cord damage including myelopathy, fatigue and secondary malignancy. The patient, and daughter had multiple questions which were answered to their full satisfaction. Thank you for allowing us to participate in the care of this patient. This chart was completed in part utilizing [employer] Speech Voice Recognition software. Attempts were made to minimize the grammatical errors, random word in sertions, pronoun errors and incomplete sentences. Any formal questions or concerns about the content, text or information contained within the body of this dictation should be directly addressed to the provider for clarification. Cristofer Resendez MD Department of Radiation Oncology [facility] Present on Admission?: No History of Present Illness Attending Physician: Josefina Westbrook MD History of Present Illness 11/2016. Patient presents with gross hematuria. 12/07/2016. The patient underwent a cystoscopy and transurethral resection of a bladder tumor involving the right bladder wall. This confirmed a papillary urothelial carcinoma, high-grade with no lamina propria or muscularis propria invasion detected. TUR of the left sided bladder tumor revealed a papillary urothelial carcinoma, high-grade with no lamina propria or muscularis propria invasion identified. A TUR of an anterior bladder tumor revealed a papillary urothelial carcinoma, high-grade with no lamina propria invasion and no muscularis propria noted within the resected margin. A TUR of the prostate revealed papillary urothelial carcinoma, high-grade with subepithelial connective tissue invasion identified. No prostatic glandular or stromal involvement was identified and benign prostatic tissue was noted. Case: [id number]. 01/18/2017. Patient undergoes a repeat cystoscopy with transurethral resection of the residual tumor. This study confirmed a bladder tumor greater than 5 cm with meatal stenosis. There was significant residual tumor burden on the right and anterior bladder wall which was resected with no clear residual mass remaining. A TUR of the right bladder tumor showed persistent papillary urothelial carcinoma, high-grade with no lamina propria or muscularis propria invasion identified. Majority of the tumor however appeared low-grade with focal areas of high-grade identified. Deep bladder tumor resection showed uterine papillary urothelial carcinoma, high-grade with no lamina propria or muscularis propria identified. A cold cup biopsy of the deep bladder showed benign muscularis propria with no malignancy seen. Case: [id number]. 05/21/2017. Patient was noted to have a right hydronephrosis and bladder tumor obstruction. He underwent cystoscopy with TUR of the bladder tumor. This showed an invasive papillary urothelial carcinoma, high-grade. The tumor extensively invaded the muscularis propria with focal lymphovascular space invasion identified. Case: [id number]. 06/12/2017. Patient was seen by Dr. Yasir Painting who recommended neoadjuvant systemic chemotherapy. This consisted of CDDP/Gemzar. The plan was to proceed with 6 cycles. 10/01/2017. Patient undergoes repeat cystoscopy with a right stent exchange. His examination revealed a relatively small prostate. The bladder mucosa was interviewed drastically improved from the time of his prior procedure. There was some residual tumor on the right lateral wall however this was markedly smaller in volume than that present at the time of the prior cystoscopy. The posterior wall and left lateral wall were free of tumor. The previously placed right ureteral stent was easily seen protruding from the right orifice and the stent was replaced 11/13/2017. Patient return for follow-up with Dr. Painting. At that time patient had completed 5 of 6 cycles. He however struggled with chronic cytopenias, thrombocytopenia and anemia throughout his treatment. He has undergone dose modification and delays in therapy along with platelet transfusions. Patient was felt to have had a good clinical response and for this reason the 6 cycle was canceled. 11/21/2017. Patient returns to see Dr. Duncan. He discussed the option of radical cystoprostatectomy with extended pelvic lymph node dissection and ileal conduit urinary diversion. He discussed risks and expectations and the patient agreed to proceed with surgery. 11/29/2017. CT scan of the abdomen and pelvis with and without contrast showed stable bilateral renal cysts and a persistent mild right-sided hydronephrosis. There was a 3.6 cm infrarenal abdominal aortic aneurysm with a prominent mural thrombus just above the aortic bifurcation with mild luminal narrowing. No pelvic adenopathy was appreciated. The prostate was enlarged and heterogeneous in appearance. There was a moderate right lateral bladder wall thickening. No destructive bony lesions was appreciated. 11/29/2017. CT scan of the chest with IV contrast showed no evidence of metastatic disease within the chest. There was progression of interstitial lung disease compared to the prior CT study of November 22, 2016. 12/18/2017. Dr. Duncan performed a robotic assisted laparoscopic prostatitis cystectomy, creation of an ileal conduit and pelvic lymph node dissection. Pathologic evaluation of the right and left ureter were unremarkable. 6 left pelvic lymph nodes were benign. 6 right pelvic lymph nodes were benign. The urinary bladder revealed residual urothelial carcinoma in situ (CIS). Multiple sections from the urinary bladder failed to reveal infiltrative carcinoma. They do however reveal scar, moderate chronic active cystitis, eroded urothelial mucosa, granulomatous cystitis and dystrophic calcifications. The inked and examined surgical margins are free of tumor. The urethral margins are clear. The prostatic tissue removed revealed an adenocarcinoma [place] grade 4+3. 2 foci of the prostatic cancer were seen infiltrating through the prostatic capsule into the periprostatic adipose tissue. The inked and examined surgical margins of the prostate gland however are free of prostate adenocarcinoma and of urothelial carcinoma. The final pathologic staging of the bladder tumor was upTis upN0 pN0. The prostate measured 4.5 x 4.5 x 4.0 cm with tumor pattern 4 comprising 60% of the tumor and the tumor comprising 30% of the prostate gland. The final AJCC pathologic staging was pT2, pN0,pM0 with evidence of perineural invasion and [place] grade 4+3. Case #: [id number]. 01/01/2018. Patient return for follow-up with Dr. Duncan. He was recovering well from his surgery. 01/29/2018. Patient undergo CT scan of the abdomen and pelvis without contrast. Syncope and chest pain. This showed no evidence of recurrent cancer. Patient was admitted to the hospital for urinary tract infection/urosepsis and treated. 02/13/2018. Patient seen in follow-up by Dr. Duncan. He recovered from his infection and was doing well. 03/19/2018. PSA 0.376. 04/03/2018. Patient returns for follow-up to Dr. Duncan. Hemoglobin stable but low at 11.2. Platelets stable but low at 73. 05/10/2018. PSA 0.422. 05/15/2018. CT of the abdomen pelvis with IV contrast revealed a stable to improved exam compared to the prior study. Operative changes noted interval removal of the left ureteral stent noted. Stable 3.5 cm partially clot filled aneurysm in the infrarenal aspect of the abdominal aorta. 05/23/2018. Nuclear medicine whole-body bone scan showed no evidence of metastatic disease. 07/16/2018 - 09/09/2018. External beam radiation therapy to prostate bed and lymph nodes. Patient received 7020 cGy in 39 fractions of 180 cGy per fraction. Patient was also treated with bicalutamide underneath supervision of Dr. Paul Painting. 09/20/2018. CT of chest. IMPRESSION: 1. No evidence for metastatic disease within the chest. 2. Faint patchy right perihilar groundglass densities in the small cluster of nodular densities within the right upper lobe. This favors a low-grade pneumonia. Follow-up recommended to ensure resolution. 3. Emphysema and chronic fibrotic changes again noted. 4. Mild nonspecific thickening of the distal esophagus. This could represent an esophagitis. This is similar to the prior study. The esophagus is filled with contrast suggesting delay of transit. Endoscopy could be used for further evaluation to exclude the possibility of an esophageal lesion/stenosis. 09/20/2018. CT of abdomen/pelvis. IMPRESSION: 1. Postoperative changes from prior cystoprostatectomy with ileal conduit. No obstructive uropathy, adenopathy or evidence of metastatic disease. 2. Right basilar opacities are suggestive of a nonspecific infectious or inflammatory pneumonitis. 3. Moderate circumferential wall thickening of the distal esophagus and gastroesophageal junction. This finding could be correlated with endoscopy. 4. Findings suggest constipation. No bowel obstruction or bowel wall thickening identified. 5. Left-sided renal arterial stenosis with mild atrophy and decreased enhancement of the left kidney. 6. Unchanged fusiform aneurysm dilation of the infrarenal abdominal aorta, 3.8 x 3.6 cm. 7. Additional findings as above. 09/24/2018. PSA. 0.102. 11/04/2018. Patient presents with dysphasia to the emergency room department. Previously, the patient was started on pantoprazole by Dr. Painting. Patient admitted to hospital for further work-up and evaluation. 11/05/2018. CT of chest. IMPRESSION: 1. Interval increase bulk/size of the masslike soft tissue thickening of the distal esophagus and gastroesophageal junction at the site of primary malignancy. There is also evidence of increased esophageal distention likely indicating an element of partial obstruction. Findings raise concern for progression of primary malignancy. 2. No lymphadenopathy or evidence of intrathoracic metastatic disease. 3. Emphysema with fibrotic change. 11/05/2018. CT of abdomen/pelvis. IMPRESSION: 1. Unchanged circumferential thickening of the gastroesophageal junction having maximum dimensions of 2.4 x 2.2 cm. 2. Moderate distention of the esophagus proximal to this site raising the possibility of an obstructing lesion. 3. Incidental and postoperative findings throughout the abdomen with no evidence for metastatic change. 11/05/2018. Upper endoscopy by Dr. Aguila. Findings include a medium size, fungating mass with no bleeding and no stigmata of recent bleeding at the gastroesophageal junction, 38 cm from incisors. The mass was partially obstructing and circumferential. Preliminary biopsy consistent with adenocarcinoma. 11/07/2018. Medical oncology consultation by Dr. Paul Painting. Dr. Painting has requested radiation oncology consultation and discussed potential preoperative chemotherapy and radiation therapy. Currently, the patient states that after his upper endoscopy he is swallowing better. He denies any other significant complaints at this point. Allergies Allergy/AdvReac Type Severity Reaction Status Date / Time Iodinated Contrast- Oral and Allergy Mild Rash Verified 11/04/18 11:41 IV Dye Home Medications Home Medications Medication Instructions Recorded Confirmed Type acetaminophen [Tylenol] 325 mg PO Q6H PRN 11/28/17 11/04/18 History ascorbic acid (vitamin C) 1,000 mg PO QDL 11/28/17 11/04/18 History atorvastatin 20 mg PO HS 11/28/17 11/04/18 History metoprolol succinate 12.5 mg PO QAM 11/28/17 11/04/18 History food supplement, lactose-reduced 1 ea PO HS ml 06/20/18 11/04/18 History 0.06 gram-1 kcal/mL oral liquid bicalutamide 50 mg tablet 50 mg PO DAILY tab 10/18/18 11/04/18 History calcium carbonate 600 mg calcium 600 mg PO DAILY tab 10/18/18 11/04/18 History (1,500 mg) tablet cholecalciferol (vitamin D3) 2,000 2,000 units PO DAILY 10/18/18 11/04/18 History unit capsule pantoprazole 40 mg tablet,delayed 40 mg PO QPM tab 10/24/18 11/04/18 History release metoprolol tartrate 12.5 mg PO BID 30 Days #30 tab 11/07/18 Rx Patient History Medical History Hypertension Hyperlipidemia Anemia HX WHILE ON CHEMO 05/2017 - Needed platelet and blood transfusions. Hx of reduction of closed fracture R LOWER LEG Cancer CHEMOTHERAPY MAY-OCTOBER 2017 THRU [facility] FOR BLADDER CANCER AAA (abdominal aortic aneurysm) (Acute) Acquired thrombocytopenia (Acute) BPH (benign prostatic hyperplasia) (Acute) Bladder cancer (Acute) Hydronephrosis (Acute) Skin cancer (Acute) Right hand , nose and posterior neck Surgical History History of cystoscopy X 4- 2 STENT PLACEMENT R URETER REMAINS IN PLACE S/P T&A (status post tonsillectomy and adenoidectomy) (Acute) as a child S/P radical cystoprostatectomy (Acute) surgery 12-18-2017 / Status post chemotherapy (Acute) chemo from May 2017 to October 2017 Family History Father , at age 78 Diverticulitis Ruptured Mother , age 83 Old age Son No problems noted. Son No problems noted. Daughter No problems noted. Social History Preferred Language: [place] Communication Ability: Effective Visual Impairment: No Limitations Rn Bariatric Required: No Beliefs That Will Affect Care: None marital status: Current Living Situation: Spouse Other Information That Helps Us Care for You: No Feels Safe at Home: Yes Safety Concerns: Feels Safe At This Time Smoking Status: Former smoker Tobacco Type: cigarettes ; Cigarettes Per Day: 20 ; Second Hand Exposure: No ; Hx Alcohol Use: No Hx Substance Use: No Review of Systems Review of Systems: All systems reviewed & are unremarkable except as noted in HPI & below Physical Exam Constitutional: WD/WN, vitals as above well developed and well nourished Eyes: PERRL, conjunctivae normal, anicteric sclerae ENMT: external ear and nose normal, oropharynx normal Neck: trachea midline, no thyromegaly Respiratory: normal respiratory effort, lungs clear to auscultation Cardiovascular: RRR, no murmur, no edema Gastrointestinal (Abdomen): normal bowel sounds, soft, nontender, no hepatosplenomegaly Musculoskeletal: no cyanosis or clubbing, extremities motor strength 5/5 Skin: no rashes, warm and dry Neurologic: patellar DTR's 2+ bilat, sensation intact and PERRL, EOMI, accommodation nl, no face palsy, no dysarthria Psychiatric: A+Ox3, euthymic affect Results Additional Studies 11/04/18 10:48 ECG 12 lead EKG Stat XR chest 2V routine Stat 11/05/18 16:13 CT chest w con Routine 11/05/18 16:15 CT abdomen oral and IV con Routine Time Spent Attending I spent 60 minutes for this consultation, which included obtaining clinical information, performing a physical exam, recommending a plan of action and answering questions. Additionally, I spoke on the phone with both Dr. Painting and Dr. Aguila. Greater than 50% of the time spent was direct face to face interaction with the patient.
[2018-11-07] MEDS: MAGNESIUM SULFATE / D5W 1 GM/100 ML BAG IV SCH ×2 (09:47→11:03)
--- NOTE | 2018-11-07 09:48 | Consultation Report ---
DATE OF CONSULTATION: 11/07/2018 MEDICAL ONCOLOGY CONSULTATION REASON FOR CONSULTATION: Distal esophageal adenocarcinoma. HISTORY OF PRESENT ILLNESS: Mr. Bennett is a pleasant 78-year-old gentleman well known to [facility], currently under my care with a diagnosis of high-grade muscle invasive urothelial carcinoma as well as prostate cancer. Dwight was admitted to [facility] on 11/04 because of inability to swallow. Over the past couple of months, he had been experiencing pyrosis-like symptoms and had issues with food sticking, particularly meats and breads. I had seen Dwight about a month prior, and on a surveillance scan, the distal esophagus was notably thick. At that time, I had recommended EGD, which was arranged under [facility], but unfortunately canceled because of patient recovering from pneumonia. Apparently on the day prior to admission, he and his were out to dinner and consumed a "blooming onion," which is something he does not typically eat. Apparently, he had to leave the restaurant because he could not swallow the food bolus adequately. This continued throughout the night and upon contacting my office, I had recommended that he come to the Emergency Room. Again, he had surveillance CTs done on September to survey his previous bladder and prostate cancers, and unfortunately, it revealed a gastroesophageal thickening. Dwight and his family are in the midst of a move on 11/30; however, I believe because of some delay in diagnosis that he should be treated sooner rather than later and therefore, I have been asked to discuss chemoradiation with Mr. Bennett. Again, he was previously treated for high-grade muscle invasive urothelial carcinoma, which was diagnosed in 05/2017 and shortly thereafter in 12/2017 was diagnosed with high-risk adenocarcinoma of the prostate. PAST MEDICAL HISTORY: Significant for hypertension, hyperlipidemia, anemia, cancers as listed above, abdominal aortic aneurysm, ITP and BPH. PAST SURGICAL HISTORY: Includes radical cystoprostatectomy, status post chemotherapy, status post T and A, and cystoscopy. MEDICATIONS: Prior to admission include vitamin C 1000 mg p.o. daily, atorvastatin 20 mg p.o. daily, metoprolol succinate 12.5 mg p.o. daily, bicalutamide 50 mg p.o. daily, Protonix 40 mg p.o. daily, cholecalciferol 2000 units p.o. daily, calcium carbonate 600 mg tablet p.o. daily. ALLERGIES: IV CONTRAST. SOCIAL HISTORY: He is , retired, nonsmoker, nondrinker. FAMILY HISTORY: Noncontributory. REVIEW OF SYSTEMS: CONSTITUTIONAL: As per HPI, most notably for dysphagia. No fevers, chills or sweats. He is not actively losing weight. HEENT: Denies headaches, lightheadedness or dizziness. No acute visual or hearing deficits. He wears corrective lenses. No sinus symptoms or sore throat. Positive for dysphagia. LYMPHATICS: No history of lymphoproliferative disease. CARDIAC: No history of coronary artery disease, no angina or palpitations. PULMONARY: No history of COPD. No shortness of breath, dyspnea or orthopnea. No cough or hemoptysis. GASTROINTESTINAL: Positive for pyrosis-like symptomatology. No overt abdominal pain. No current nausea or vomiting, no diarrhea or constipation, no hematochezia or melena stools. GENITOURINARY: Positive for prostate cancer. Positive for BPH. No current hematuria, dysuria, or urinary incontinence. PSYCHIATRIC: Negative for anxiety, depression or psychoses. MUSCULOSKELETAL: No overt muscle weakness. No arthralgias or myalgias. ENDOCRINE: Negative for diabetes or thyroid disease. NEUROLOGIC: Negative for seizure, stroke, or migraine headache. HEMATOLOGIC: Positive for anemia. PHYSICAL EXAMINATION: GENERAL: Very pleasant 78-year-old gentleman in no acute distress. VITAL SIGNS: Temperature 36.3, pulse 57, respiratory rate 16, blood pressure 127/74. SKIN: Warm, dry, noncyanotic without petechia, rash or ecchymosis. HEENT: Head is atraumatic, normocephalic. Eyes: PERRLA, EOMI. Sclerae nonicteric. No conjunctival injection. Nares are patent without rhinorrhea or discharge. Throat is clear. Tongue is midline. Mucous membranes are moist. NECK: Supple without JVD or thyromegaly. LYMPHATICS: No cervical or supraclavicular palpable nodes. HEART: Regular rate and rhythm. No clicks, rubs, murmurs or gallops. LUNGS: Clear to auscultation bilaterally. ABDOMEN: Soft, nontender, nondistended, without palpable hepatosplenomegaly. EXTREMITIES: No calf tenderness or swelling. No clubbing, cyanosis or edema. NEUROLOGICAL: He is awake, alert and oriented x3. Cranial nerves II-XII are intact. LABORATORY DATA: WBC count 5460, hemoglobin 11.4, platelet count 41,000. Magnesium 1.7. Sodium 142, potassium 3.5, chloride 112, carbon dioxide 25, BUN 16, creatinine 1.37. RADIOGRAPHIC DATA: CT scan of the chest, abdomen and pelvis on admission revealed interval increase bulk mass-like soft tissue thickening of the distal esophagus in the gastroesophageal junction at the site of primary malignancy, also evidence of increased esophageal distention, thought to suggest partial obstruction. No regional lymphadenopathy is noted. CT of the abdomen basically reveals the same. IMPRESSION: 1. Adenocarcinoma of the distal esophagus. 2. History of high-grade muscle invasive urothelial carcinoma diagnosed in 05/2017. 3. High-risk prostate adenocarcinoma diagnosed in 12/2017. 4. Idiopathic thrombocytopenic purpura. PLAN: Mr. Bennett is a pleasant 78-year-old gentleman currently under my care with dual diagnosis of prostate and high-grade urothelial carcinomas. I had seen him in followup in September of this year, at which time had surveillance scans performed, which revealed esophageal thickening. During that appointment, he had also complained of heartburn-like symptoms. I have prescribed him Protonix and recommended expedient EGD. Apparently, the patient had developed pneumonia, which delayed his procedure. This then led up to admission because of severe dysphagia brought on by a blooming onion he consumed in a restaurant the night prior. EGD was carried out. Diagnosis of adenocarcinoma of the distal esophagus is established. 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 At first glance, it does not appear he has regional lymphadenopathy, which gives him a little better prognosis. However, these tumors do tend to come back despite combined modality therapy and surgery. Mr. Bennett and his family planned to move to [facility] [address]. They have already made arrangements with the medical oncologist who is unaware of this new diagnosis. I alerted Dr. Cristofer Resendez from radiation oncology to see Mr. Bennett today in consultation and plans are underway to begin therapy within the next week or so. Ultimately, records will have to be transferred to the treating oncologist in [place] once Dwight and family are settled in. I have nothing further to add and we will do whatever is necessary to initiate treatment. [facility]
[2018-11-07 14:24] VITALS: PULSE 65
--- NOTE | 2018-11-07 16:35 | Discharge Summary ---
Date of Service November 07, 2018 Admission HPI Per Admitting Provider 78 y/o M c/o inability to swallow. Pt states that for a few months he felt like some food was "sticking" when he would swallow. He would have to try several times to get things down. This did not happen with all intake, only solids and only occasionally. Yesterday he and his were out to dinner and he ate part of a "blooming onion" which is something that he typically does not eat. It was fried and spicy, which he usually does not eat. They had to leave the restaurant due to an inability to swallow. This continued through the night and this AM he could not get his meds down or even a small amount of water, so they came to the ED. He cannot swallow his secretions now. Pt states that as long as he does not try to eat anything he has no n/v. Pt denies fever, SOB, chest pain, abd pain, c/d, LE pain or swelling. Pt had a CT chest, AP in September for hx of bladder and prostate cancer. It showed esophageal thickening. He was sent to GI for EGD, however there was some concern for possible PNA on CT, so scope could not be done at that time. He is currently scheduled for December with Dr. Aguila. Pt did complete 7 days of abx, possibly azithromycin. He had no sx of PNA prior to this or since. Admission Exam Per Admitting Provider Constitutional: WD/WN, vitals as above Eyes: normal visual garcia by confrontation and + anicteric sclerae Neck: normal visual inspection and trachea midline Respiratory: normal respiratory effort, lungs clear to auscultation Cardiovascular: Rate/Rhythm: regular rate and regular rhythm Gastrointestinal (Abdomen): Inspection/Auscultation: abdomen not distended Percussion/Palpation: abdomen soft; abdomen nontender Musculoskeletal: Head/Neck/Chest: normocephalic and head atraumatic n egative for edema, peripheral pulses intact Skin: no rashes, warm and dry Neurologic: awake; not confused Speech / Cognition: normal speech Psychiatric: A+Ox3, euthymic affect Principal Diagnosis Esophageal Cancer Discharge Exam General: Resting comfortably HEENT: NC/AT; PERRLA with EOMI; [place] conjunctiva, MMM. No erythema of posterior pharynx Neck: Supple and nontender Cardiac: RRR Lungs: CTA bilaterally Abdomen: Bowel normoactive X 4; Nontender to palpation Extremities: Warm. No edema present Neuro: No focal weakness Skin: No rash Discharge Data Allergies Allergy/AdvReac Type Severity Reaction Status Date / Time Iodinated Contrast- Oral and Allergy Mild Rash Verified 11/04/18 11:41 IV Dye Consultations 11/04/18 14:46 ED Decision to Admit Stat 11/04/18 17:27 Consult Gastroenterology Routine 11/06/18 14:54 Consult Oncology Routine Procedures Performed Operation Date: 11/05/18 10:10 Actual Procedures p Esophagogastroduodenoscopy - Quan Aguila Ordered Studies 11/05/18 16:13 CT chest w con Routine 11/05/18 16:15 CT abdomen oral and IV con Routine CXR 11/04/18 Hospital Course (1) Inability to swallow: Could not tolerate PO intake prior to admission, likely related to esophageal obstructing mass; did have esophageal wall thickening on CT in September 2018 but EGD was delayed due to diagnosis of PNA. GI consulted, s/p EGD (see below) Tolerating full liquid diet prior to discharge. Resumed PO meds -- can crush and take with water. (2) Esophageal mass: Partially obstructing mass noted at GE junction on EGD; biopsy +esophageal cancer. CT of chest/abd/pelvis with no evidence of metastases. GI following, appreciate input. Oncology and rad/onc consulted -- will need outpatient PET scan. Pt. will need to establish care with oncologist in [place], [place] -- plans to move there in Nov. Dr. Resendez will contact oncologist at [place] to discuss. (3) JAVIER (acute kidney injury): Creatinine increased to 1.7 on admission, now improved with IV fluid hydration. Received IV fluids. (4) Stage III chronic kidney disease: Renally dosed all meds. (5) Anemia: H/o anemia -- was likely chemotherapy induced in the past. Acute anemia during this admission likely related to IV fluids. (6) Hypertension: Resumed home beta porter -- converted to tartrate 12. mg BID, pt. will need to crush pill. (7) Hyperlipidemia: Resumed home statin -- will need to crush and take with water. (8) Malignant neoplasm of urinary bladder: S/p cystoscopy and transurethral resection of bladder tumor in Nov 2016, confirmed papillary urothelial carcinoma. S/p creation of ileal conduit in December 2017. Follows with Dr. Painting. (9) Prostate cancer: S/p radiation therapy (completed in September 2018). (10) Emphysema of lung: Currently stable with no resp issues. (11) AAA (abdominal aortic aneurysm): Followed as outpatient, cardiology. (12) BPH (benign prostatic hyperplasia): Not currently on agents. (13) GERD (gastroesophageal reflux disease): Pepcid IV daily. (14) Thrombocytopenia: Plt count has been low -- will continue to monitor. Unclear etiology, follows with Heme/Onc Held pharmacologic ppx. Did not require transfusion support. (15) DVT prophylaxis: SCDs; held pharmacologic ppx in setting of thrombocytopenia. Discharged to home on 11/07/18. Total Time Total Time Spent Total Time Spent (In Minutes): >30 minutes Total Time Includes: Examination of the Patient, Discharge Planning, Medication Reconciliation, Communication With Other Providers and Other Discharge Plan Discharge Items Patient Disposition: Home - Self-Care Reason For Visit: INABILITY TO SWALLOW Discharge Diagnosis: Esophageal Cancer Condition: Fair Discharge Goals: Decrease discomfort, Diagnostic testing, Improve disease control, Improve function, Increase independence and Improve nutritional status Activity: As commented below Exercise/Sports: Wait until after follow-up appointment Non-emergency contact: Primary Care Provider, Card Room Manager and Oncologist Call non-emergency contact if: you have any medication questions, your symptoms worsen and you have a fever Follow-up/Referrals: Salvador Liu [Primary Care Provider] - Diet: Full liquid Addtl Provider Instructions: 1. Esophageal Cancer * Please continue a full liquid diet at discharge unless instructed otherwise by your outpatient providers. * You will need to follow up for a PET scan for staging purposes -- this will be arranged as an outpatient over the next 5-7 days. * An outpatient follow up will need to be arranged with oncology and radiation oncology in [place], [place]. * Please continue oral meds -- they should be crushed and taken with water. 2. Hypertension * Metoprolol dose has been changed to twice daily dosing -- the short acting formula can be crushed and taken with water. * Prescription for Metoprolol tartrate was sent to your pharmacy. Prescriptions: New metoprolol tartrate 25 mg Tablet 12.5 mg PO BID 30 Days Qty: 30 RF: 2 Continued Boost High Protein 0.06 gram- 1 kcal/mL liquid 1 ea PO HS RF: 0 bicalutamide [Casodex] 50 mg tablet 50 mg PO DAILY RF: 0 cholecalciferol (vitamin D3) 2,000 unit capsule 2,000 units PO DAILY RF: 0 calcium carbonate [Calcium 600] 600 mg calcium (1,500 mg) tablet 600 mg PO DAILY RF: 0 pantoprazole 40 mg tablet,delayed release (DR/EC) 40 mg PO QPM RF: 0 atorvastatin 20 mg Tablet 20 mg PO HS RF: 0 Discontinued ascorbic acid (vitamin C) 1,000 mg Tablet 1,000 mg PO QDL RF: 0 metoprolol succinate 25 mg Tablet Extended Release 24 Hr 12.5 mg PO QAM RF: 0 acetaminophen [Tylenol] 325 mg Capsule 325 mg PO Q6H PRN (Reason: Pain/fever) RF: 0 Stand-Alone Forms: [facility] Discharge Orders: Discharge Order (Routine); Ordered 11/07/18 Ordered By: Josefina Westbrook Admission Data Admit Date/Time: 11/04/18 16:36 Attending Provider: Josefina Westbrook Admit Provider: Trish Castro Primary Care Provider: Salvador Liu Other Providers: Trish Castro ; Quan Aguila ; Paul Painting V Service: Surgical Services Other Interventions: Discharge Summary Assessment (RN) Last Done: 11/07/18 14:23 Pending Studies at Discharge: No DC Date/Time DO NOT enter until pt leaves facility: 11/07/18 16:44 Supervising Physician Co-Signing Physician Notes PA Supervision Note: I personally saw and examined the patient. I verified all powers points and agree with ERIS Warren with the following exceptions and/or additions: Patient tolerating full liquids diet. Discussed nutrition moving forward No chest pain Vitals reviewed Gen: AAOx3, NAD HEENT: Anicteric sclerae, EOMI CV: RRR no mgr nl S1S2 Pulm: CTAB no wcr Abd: +BS soft NT ND no masses or hernias Ext: No edema, 2+ DP pulses Skin: No rashes, warm/dry Neuro: Full strength throughout 78-year-old male here with obstructing esophageal mass and esophageal cancer -Stable for discharge to home with close oncologic follow-up
== END 2018-11-07 16:44 | disposition home or self-care (01) | DRG 375 ==
LOC: ED 10:20 → 3N 16:36 → SUATTDRO 16:36 → 3N 17:04
DX: C15.5 Malignant neoplasm of lower third of esophagus; Z85.51 Personal history of malignant neoplasm of bladder; N40.0 Benign prostatic hyperplasia without lower urinary tract symptoms; E78.5 Hyperlipidemia, unspecified; N17.9 Acute kidney failure, unspecified; D69.6 Thrombocytopenia, unspecified; Y92.009 Unspecified place in unspecified non-institutional (private) residence as the place of occurrence of the external cause; D64.9 Anemia, unspecified; T18.128A Food in esophagus causing other injury, initial encounter; Z93.6 Other artificial openings of urinary tract status; Z85.828 Personal history of other malignant neoplasm of skin; Z88.8 Allergy status to other drugs, medicaments and biological substances; Z85.46 Personal history of malignant neoplasm of prostate; J43.9 Emphysema, unspecified; Z87.891 Personal history of nicotine dependence; I12.9 Hypertensive chronic kidney disease with stage 1 through stage 4 chronic kidney disease, or unspecified chronic kidney disease; N18.3 Chronic kidney disease, stage 3 (moderate)